=== PATIENT | female | born 1955 | race Caucasian/White ===

== ENCOUNTER 2020-11-26 02:32 | Day surgery (SDC) | payer MEDICARE, SELFPAY ==
[2020-11-11 13:17] VITALS: BMI 50.5
[2020-11-26 09:37] VITALS: BP 140/61; PULSE 94; RESP 17; TEMP 36.4; O2SAT 95; BMI 53.6
[2020-11-26] MEDS: LACTATED RINGERS 1,000 ML 150 ML IV CONT (09:43)
[2020-11-26 09:47] LABS: Glucose Point of Care 213 mg/dl (65-105)
--- NOTE | 2020-11-26 10:08 | P.PNAN_ITS ---
Anes - Initial Pre Proc Eval Procedure: Operation Date: 11/26/20 11:00 Proposed Procedures p Screening Colonoscopy - Lawrence Styles MD Date/Time: 11/26/20 10:08 Surgeon: Lawrence Styles MD Pre Op Diagnosis: neoplasm screening Patient Data Age: 65 Gender: F Height: 1.5 m Weight: 120.6 kg Last Vital Signs Temp 97.6 F 11/26/20 09:37 Pulse 94 11/26/20 09:37 Resp 17 11/26/20 09:37 BP 140/61 11/26/20 09:37 Pulse Ox 95 11/26/20 09:37 Allergies Allergy/AdvReac Type Severity Reaction Status Date / Time Penicillins Allergy Severe Rash Verified 11/26/20 09:36 Home Medications Medication Instructions Recorded Confirmed Type allopurinol 100 mg PO QAM 11/11/20 11/26/20 History atorvastatin 20 mg PO QAM 11/11/20 11/26/20 History dulaglutide [Trulicity] 0.75 mg SUBCUT WEEKLY 11/11/20 11/26/20 History insulin glargine [Basaglar KwikPen 40 unit SUBCUT HS 11/11/20 11/26/20 History U-100 Insulin] lisinopril 40 mg PO QAM 11/11/20 11/26/20 History metformin 1,000 mg PO QAM 11/11/20 11/26/20 History Laboratory Tests 11/26/20 09:45 POC Capillary Glucose 213 mg/dl H mg/dl (65-105) Patient hx anesthesia problems: none Family hx anesthesia problems: none Results Review: All pre-operative results and documents have been reviewed as part of the pre-operative evaluation. [facility] Past Medical History Medical History (Updated 11/26/20 @ 10:03 by August Nair MD) Depression Diabetes Social History Social History (System 03/14/19 @ 14:27 by Josie Rico) Smoking status: Never smoker Living arrangements: with family Spiritual care concerns: No Anes - Eval Final PreProcedure Day of Procedure 11/26/20 10:08 Patient weight: super morbidly obese Heart: regular rate and rhythm Lungs: clear to auscultation Airway: Mallampati scale class III Neurological: alert and oriented Last oral intake: >/= 8 hours ASA classification: III Emergent: no Anesthetic plan: proceed Anesthesia type and monitoring: general GIVS and standard monitoring Results Review: All pre-operative results and documents have been reviewed as part of the pre-operative evaluation. Informed Consent: The patient's anesthetic plan and its attendant risks and benefits were discussed with the patient/family/POA. Questions were solicited and answers provided to the satisfaction of the patient/family/POA.
--- NOTE | 2020-11-26 10:09 | PM.HPGS ---
History of Present Illness History of Present Illness Consent: Risks, benefits, and alternatives have been discussed and questions answered. Patient agrees to proceed with procedure. Chief complaint: neoplasm screening Narrative: Angelita Madera is a 65 year old female referred for colon cancer screening Review of Systems Review of Systems: All systems reviewed & are unremarkable except as noted in HPI and below PMFSH Past Medical History Medical History Depression Diabetes Social History Social History Smoking status: Never smoker Living arrangements: with family Spiritual care concerns: No Meds Home Medications and Allergies Home Medications Medication Instructions Recorded Confirmed Type allopurinol 100 mg PO QAM 11/11/20 11/26/20 History atorvastatin 20 mg PO QAM 11/11/20 11/26/20 History dulaglutide [Trulicity] 0.75 mg SUBCUT WEEKLY 11/11/20 11/26/20 History insulin glargine [Basaglar KwikPen 40 unit SUBCUT HS 11/11/20 11/26/20 History U-100 Insulin] lisinopril 40 mg PO QAM 11/11/20 11/26/20 History metformin 1,000 mg PO QAM 11/11/20 11/26/20 History Allergies Allergy/AdvReac Type Severity Reaction Status Date / Time Penicillins Allergy Severe Rash Verified 11/26/20 09:36 Vital Signs Vital Signs - 24 hr 11/26/20 09:37 Temperature 36.4 C Pulse Rate 94 Respiratory Rate 17 Blood Pressure 140/61 Pulse Oximetry 95 Exam Resp: Auscultation: clear to auscultation bilaterally Cardio: Rate: regular rate Rhythm: regular rhythm GI: GI Palp: Yes Soft to palpation and No Tenderness to palpation present (GI) Assessment and Plan Assessment and plan (1) Colon cancer screening: Code(s): Z12.11 - Encounter for screening for malignant neoplasm of colon Status: Acute Assessment and Plan: Colonoscopy with possible biopsy or polypectomy or cautery or injection of substances.
[2020-11-26 10:40] VITALS: BP 106/45; PULSE 94; RESP 22; O2SAT 94
[2020-11-26 10:50] VITALS: BP 109/68; PULSE 84; RESP 17; O2SAT 96
[2020-11-26 10:54] LABS: Glucose Point of Care 185 mg/dl (65-105)
[2020-11-26 11:00] VITALS: BP 111/60; PULSE 83; RESP 21; O2SAT 95
== END 2020-11-26 11:15 | disposition home or self-care (01) ==
PROVIDERS: PCP Family Medicine; Visit Provider Internal Medicine Gastroenterology
PROC: 0DJD8ZZ Inspection of Lower Intestinal Tract, Via Natural or Artificial Opening Endoscopic (ICD-10-PCS; CPT 45378; principal; 2020-11-26 11:00)
DX: Z12.11 Encounter for screening for malignant neoplasm of colon (principal); E11.9 Type 2 diabetes mellitus without complications; F32.9 Major depressive disorder, single episode, unspecified; Z79.4 Long term (current) use of insulin; Z79.84 Long term (current) use of oral hypoglycemic drugs; E66.01 Morbid (severe) obesity due to excess calories; Z68.43 Body mass index [BMI] 50.0-59.9, adult
CPT/HCPCS: G0121; 82948; J2704; J7120

== ENCOUNTER → 2021-02-01 13:28 | Outpatient (CLI) | payer MEDICARE, SELFPAY ==
--- NOTE | ~2021-02-01 | MM_ITS ---
EXAMINATION: MM screening [facility] BI w danelle HISTORY: Screening TECHNIQUE: Craniocaudal and mediolateral oblique 3-D tomosynthesis images were obtained and synthetic 2-D images were generated. CAD analysis was submitted and interpreted. COMPARISON: Comparison to multiple prior studies sequentially, with oldest reviewed study dated 06/2013. BREAST PARENCHYMAL COMPOSITION: Breast composed of scattered areas of fibroglandular density. FINDINGS: There is no evidence of suspicious mass, calcification, or architectural distortion to sugg est malignancy in either breast. There has been no suspicious interval change. IMPRESSION: 1. No mammographic evidence of malignancy. 2. Recommend routine screening mammography in one year. BI-RADS Category 1: Negative Reviewed, dictated and finalized at location A. TEMPERER
== END ==
PROVIDERS: PCP Family Medicine; Visit Provider Nurse Practitioner Family
DX: Z12.31 Encounter for screening mammogram for malignant neoplasm of breast (principal)
CPT/HCPCS: 77063; 77067

== ENCOUNTER 2021-12-08 17:15 | Emergency (ER) | payer MEDICARE, SELFPAY ==
[2021-12-08 17:23] VITALS: BP 121/90; PULSE 94; RESP 14; TEMP 36.1; O2SAT 98
[2021-12-08 17:36] LABS: Basophils Absolute Auto 0.2 K/mm3 (0.0-0.1); Basophils Percent Auto 1.2 % (0.2-1.2); Eosinophils Absolute Auto 0.2 K/mm3 (0-0.3); Eosinophils Percent Auto 1.4 % (0-4.4); Hemoglobin 13.5 g/dL (12.0-15.0); Immature Granulocyte Absolute 0.05 K/mm3 (0.00-0.031); Immature Granulocyte Percent A 0.4 % (0-0.5); Lymphocytes Absolute Auto 3.72 K/mm3 (0.9-3.2); Lymphocytes Percent Auto 28.5 % (18.3-44.2); Mean Corpuscular HGB Conc 32.1 g/dl (32-36); Mean Corpuscular Volume 90.1 fl (80-100); Mean Platelet Volume 11.8 fl (7.4-10.4); Monocytes Absolute Auto 1.3 K/mm3 (0.1-0.6); Monocytes Percent Auto 9.7 % (2.6-8.5); Neutrophils Absolute Auto 7.7 K/mm3 (1.3-6.7); Neutrophils Percent Auto 58.8 % (45.5-73.1); Platelet Count Result 290 k/mm3 (150-375); Red Blood Count 4.66 M/mm3 (4.2-5.4); Red Cell Distribution Width 13.3 % (11.5-14.5); White Blood Count 13.1 K/mm3 (4.5-10.0)
[2021-12-08 17:46] LABS: Alanine Aminotransferase 25 U/L (6-35); Albumin Level 4.3 g/dL (3.5-5.1); Alkaline Phosphatase 147 U/L (38-126); Anion Gap 6 mmol/L (8-16); Aspartate Amino Transferase 29 U/L (14-36); Bilirubin,Total 0.4 mg/dL (0.2-1.3); Blood Urea Nitrogen 19 mg/dL (7-17); Calcium 9.5 mg/dL (8.4-10.2); Carbon Dioxide 31 mmol/L (22-30); Chloride 96 mmol/L (98-107); Estimated Glomerular Filt Rate > 60; Glucose 209 mg/dL (65-110); Potassium 4.5 mmol/L (3.4-5.0); Sodium 133 mmol/L (137-145)
[2021-12-08 17:47] LABS: Prothrombin Time 12.3 Seconds (11.1-14.7)
[2021-12-08 19:11] VITALS: BP 138/64; PULSE 74; RESP 18; O2SAT 98
--- NOTE | 2021-12-08 20:12 | ED.FEMALEGU ---
HPI - Female Genitourinary General Chief complaint: Vaginal Bleeding Stated complaint: VAGINAL BLEEDING Time Seen by Provider: 12/08/21 19:08 History of Present Illness HPI Narrative: Patient is a 66-year-old female who presents ER with vaginal bleeding. Ongoing for the last 4 days. Goes through 2 pads an hour. Wakes up at night to change her pad. No syncope or dizziness or exertional shortness of breath. Denies fevers chills or sweats. No urinary frequency urgency or dysuria. Tried to schedule follow-up with her frickertron checker but there are no appointments until January 28. No history of malignancy. Related Data Home Medications Medication Instructions Recorded Confirmed allopurinol 100 mg tablet 100 mg PO QAM 11/11/20 11/26/20 atorvastatin 20 mg tablet 20 mg PO QAM 11/11/20 11/26/20 dulaglutide 0.75 mg/0.5 mL 0.75 mg subcut WEEKLY 11/11/20 11/26/20 subcutaneous pen injector (Trulicity) insulin glargine 100 unit/mL (3 40 unit subcut HS 11/11/20 11/26/20 mL) subcutaneous pen (Basaglar KwikPen U-100 Insulin) lisinopril 40 mg tablet 40 mg PO QAM 11/11/20 11/26/20 metformin 500 mg tablet 1,000 mg PO QAM 11/11/20 11/26/20 Allergies Allergy/AdvReac Type Severity Reaction Status Date / Time Penicillins Allergy Severe Rash Verified 12/08/21 19:10 Review of Systems Review of Systems: All systems reviewed & are unremarkable except as noted in HPI and below Constitutional: Constitutional: Denies chills and Denies fatigue ENT: Denies nasal congestion and Denies sore throat Cardiovascular: Cardiovascular: Denies chest pain and Denies radiating jaw, neck or arm pain Gastrointestinal: Gastrointestinal: Denies abdominal pain, Denies nausea and Denies vomiting Genitourinary: Genitourinary: Reports abnormal vaginal bleeding, Denies nocturia, Denies dysuria and Denies pelvic pain PMF Past Medical History Medical History (Updated 12/08/21 @ 20:17 by Anival Huntley MD) Depression Diabetes Surgical History Surgical History (Updated 12/08/21 @ 20:38 by Anival Huntley MD) No pertinent past surgical history Social History Social History Smoking status: Never smoker Spiritual care concerns: No Exam Narrative: GENERAL: Well-appearing, well-nourished, and in no acute distress. HEAD: Normocephalic, atraumatic. CHEST: Clear to auscultation. No respiratory distress. HEART: Regular rate and rhythm. Normal peripheral pulses. ABDOMEN: Soft, nontender, nondistended. : Normal external genitalia. Cervix closed with scant blood oozing. Cervix nonfriable. Small amount of old dark blood within the vaginal vault. EXTREMITIES: Normal range of motion. No edema. SKIN: Warm, dry, no rash. NEURO: Alert and oriented x3. PSYCH: Normal mood and affect. Course Course Emergency Course: Discussed with Dr. Boswell. She would like the patient to call office morning to schedule close follow-up. Additionally we will place an order for an outpatient ultrasound. Patient will be started on TXA for 5 days. Vital Signs Vital signs: Vital Signs Temperature 97.0 F L 12/08/21 17:23 Pulse Rate 94 12/08/21 17:23 Respiratory Rate 14 12/08/21 17:23 Blood Pressure 121/90 12/08/21 17:23 Pulse Oximetry 98 12/08/21 17:23 Oxygen Delivery Room Air 12/08/21 17:23 Temperature 97.0 F L 12/08/21 17:23 Pulse Rate 74 12/08/21 19:11 Respiratory Rate 18 12/08/21 19:11 Blood Pressure 138/64 12/08/21 19:11 Pulse Oximetry 98 12/08/21 19:11 Oxygen Delivery Room Air 12/08/21 17:23 MDM - Female Genitourinary Lab Data Result diagrams: 12/08/21 17:29 12/08/21 17:29 Labs: Lab Results 12/08/21 12/08/21 12/08/21 Range/Units 17:29 17:29 17:29 WBC 13.1 H (4.5-10.0) K/mm3 RBC 4.66 (4.2-5.4) M/mm3 Hgb 13.5 (12.0-15.0) g/dL Hct 42.0 (37.0-47.0) % MCV 90.1 (80-100) fl MCH 29.0
[2021-12-08 20:42] VITALS: BP 102/42; PULSE 72; RESP 18; O2SAT 97
== END 2021-12-08 20:45 | disposition home or self-care (01) ==
PROVIDERS: Emergency Medicine; Emergency Provider Emergency Medicine; PCP Family Medicine
DX: N95.0 Postmenopausal bleeding (principal); E11.9 Type 2 diabetes mellitus without complications; Z79.84 Long term (current) use of oral hypoglycemic drugs; Z79.4 Long term (current) use of insulin; Z79.85 Long-term (current) use of injectable non-insulin antidiabetic drugs
CPT/HCPCS: 36415; 80053; 85025; 85610; 85730; 86850; 86900; 86901; 99284

== ENCOUNTER 2021-12-13 14:48 | Outpatient (CLI) | payer MEDICARE, SELFPAY ==
--- NOTE | ~2021-12-13 | US_ITS ---
EXAMINATION: US pelvic complete w TV DATE: 12/13/2021 15:50 INDICATION: Postmenopausal bleeding. TECHNIQUE: Multiple transabdominal and transvaginal sonographic images of the pelvis were obtained. COMPARISON: Ultrasound 11/11/2010 FINDINGS: TRANSABDOMINAL ULTRASOUND: The uterus measures 8.5 x 4.2 x 5.1 cm. There is no free fluid in the pelvis. TRANSVAGINAL ULTRASOUND: The endometrial complex measures 9 mm in thickness. There are nabothian cysts in the cervix. There is a 2.8 cm intramural fibroid. The ovaries are not visualized. IMPRESSION: 1. Thickened endometrial complex. The differential diagnosis includes endometrial hyperplasia, polyp, and carcinoma. Biopsy is recommended. 2. Uterine fibroid. Reviewed, dictated and finalized at location A. NISTRATIVE SALES ASSISTANT IMPRESSION: 1. Thickened endometrial complex. The differential diagnosis includes endometri al hyperplasia, polyp, and carcinoma. Biopsy is recommended. 2. Uterine fibroid.
== END 2021-12-13 14:49 | disposition home or self-care (01) ==
PROVIDERS: PCP Family Medicine; Visit Provider Family Medicine
DX: N95.0 Postmenopausal bleeding (principal); D25.9 Leiomyoma of uterus, unspecified
CPT/HCPCS: 76830; 76856

== ENCOUNTER 2022-01-17 00:48 | Day surgery (SDC) | payer MEDICARE, SELFPAY ==
--- NOTE | 2022-01-05 14:48 | PC.NURSE ---
Report to the Outpatient Waiting Room, entrance under the green pavilion located off [facility], at time __1215 on date __01/17/22 . Planned Procedure Time: _1415 . Time changes happen often and if your time is changed the preop area will call you the afternoon before. - You and your visitor will be asked to self-screen and do not enter if you have any COVID symptoms. - Only one visitor is requested with a max of two and NO children visitors are allowed at this time. - The patient visitor may be requested to leave or wait in car when not with patient due to distancing restrictions. - A mask is optional within the hospital. Patients may have clear liquids (water, carbonated beverages, clear teas, apple juice) until 3 hours prior to surgery with a maximum of 20 ounces. - No food from midnight until time of surgery - Infants may have breast milk until 4 hours before surgery, formula 6 hours prior to surgery. - Children will be allowed to drink immediately following surgery. If applicable, please bring a bottle or sippy cup to assist with drinking. Juice, water, soda, and popsicles are readily available. For infants on formula, please bring formula the day of surgery. Pacifiers are allowed. Take the following medications with a SIP of water the morning of surgery: SERTRALINE Medications to discontinue per physician ___VITAMIN D3 3 DAYS PRE OP Date to take last dose____01/13/22 Please no make-up, nail paraguayan, hairspray, perfume, deodorant, or body powder the day of surgery. No jewelry (including any body piercings) or valuables the day of surgery, leave them at home. Please take a shower or bath the night before, or the morning of, surgery with an antibacterial soap. Wear comfortable, loose fitting clothing. Children are encouraged to wear pajamas. - Jewelry must be removed prior to entering the operating room. Rings and piercings that are not removed may be cut off. - The hospital will not accept responsibility for valuables. - Please leave all valuables, including medications, at home the day of surgery. If you are going home after surgery, a licensed chair car driver must drive you home. - NO public transportation without another adult if you receive anesthesia. - We recommend that an adult stay with you for 24 hours following discharge. - We also recommend that you do not drive, make important decision, drink alcoholic beverages, or take any drugs that were not prescribed by your health care provider for at least 24 hours after your discharge time. For Pediatric surgeries, we recommend two adults accompany the child home. Follow any additional instructions given to you from your surgeon. If you or anyone in your household have experienced Covid symptoms in the past week, please notify your surgeon or the nurse liaison at the phone number below for possible testing. Telephone instructions given to _PATIENT and asked if any additional questions and then verbalized understanding. Patient advised to call surgeon office or pre surgery nurse liaison [phone] if any additional questions.
[2022-01-05 14:53] VITALS: BMI 50.9
--- NOTE | 2022-01-17 07:26 | WPDHPUPDATE1 ---
History and Physical Update Update Date/Time: 01/17/22 07:26 History and Physical has been reviewed, including an updated exam of the patient. There are NO changes in the patient's condition. Risks, benefits, and alternatives have been discussed and questions answered. Patient agrees to proceed with procedure.
--- NOTE | 2022-01-17 07:26 | PM.HPGS ---
History of Present Illness History of Present Illness Consent: Risks, benefits, and alternatives have been discussed and questions answered. Patient agrees to proceed with procedure. Chief complaint: post menopausal bleeding Narrative: Angelita Madera is a 66 year old female with postmenopausal bleeding. The patient had not been seen since 2016 when she was scheduled for a D&C hysteroscopy for postmenopausal bleeding. She canceled that procedure. Patient states when she returned on December 14, 2021 she had no bleeding from the time of her last visit until June of 2021. She states she had a very heavy 1 day bleeding episode in June of 2021. She then began bleeding on 12/08 very heavy and went to the emergency room. It was recommended to proceed with D&C hysteroscopy. Risks of infection, bleeding, perforation, and possible pathology are reviewed. Patient voices understanding and agrees to proceed. Review of Systems Review of Systems: not repeated day of surgery; patient states no changes in status PMFSH Past Medical History Medical History (Updated 01/17/22 @ 07:30 by Chel Boswell MD) Anxiety Depression Diabetes Elevated cholesterol Gout HTN (hypertension) (normal spontaneous vaginal delivery) x2 Surgical History Surgical History (Updated 01/17/22 @ 07:30 by Chel Boswell MD) H/O breast biopsy benign on right Family History Family History (Updated 01/17/22 @ 07:31 by Chel Boswell MD) Mother Ovarian cancer Father Esophageal cancer Other Diabetes mellitus Hypertension Social History Social History Smoking status: Never smoker Living arrangements: with family Spiritual care concerns: No Meds Home Medications and Allergies Home Medications Medication Instructions Recorded Confirmed Type allopurinol 100 mg tablet 100 mg PO QAM 11/11/20 01/17/22 History atorvastatin 20 mg tablet 20 mg PO QAM 11/11/20 01/17/22 History dulaglutide 0.75 mg/0.5 mL 0.75 mg subcut WEEKLY 11/11/20 01/17/22 History subcutaneous pen injector (Trulicity) insulin glargine 100 unit/mL (3 40 unit subcut HS 11/11/20 01/17/22 History mL) subcutaneous pen (Basaglar Anna MariePen U-100 Insulin) lisinopril 40 mg tablet 40 mg PO QAM 11/11/20 01/17/22 History metformin 500 mg tablet 1,000 mg PO QAM 11/11/20 01/17/22 History cholecalciferol (vitamin D3) 1,250 1,250 mcg PO WEEKLY 01/05/22 01/17/22 History mcg (50,000 unit) tablet glipizide 10 mg tablet 10 mg PO BID 01/05/22 01/17/22 History sertraline 25 mg tablet 25 mg PO QAM 01/05/22 01/17/22 History Allergies Allergy/AdvReac Type Severity Reaction Status Date / Time Penicillins Allergy Severe Rash Verified 01/17/22 07:03 empagliflozin Allergy Rash Verified 01/17/22 07:03 [From Jardiance] Exam Narrative: BMI 40 Const: General: healthy appearing and alert Orientation/consciousness: patient oriented x3 Resp: Effort & Inspection: normal respiratory effort GI: GI Palp: Yes Soft to palpation, No Tenderness to palpation present (GI) and No Palpable mass present : External Female Exam: normal external appearance Speculum Exam - Vagina: normal appearance of the vagina and normal vaginal discharge Speculum Exam - Cervix: normal appearance of the cervix Bimanual exam- vagina & uterus: uterine size normal and consistency normal Bimanual Exam- Adnexa, other: normal adnexae and No adnexal tenderness Neuro: General: patient oriented x3 Assessment and Plan Assessment and plan (1) Post-menopausal bleeding: Code(s): N95.0 - Postmenopausal bleeding Status: Inactive Assessment and Plan: plan to proceed with D&C hysteroscopy
[2022-01-17 07:40] LABS: Glucose Point of Care 260 mg/dl (65-105)
[2022-01-17 07:44] VITALS: BP 126/55; PULSE 73; RESP 20; TEMP 36.4; O2SAT 99
[2022-01-17] MEDS: ACETAMINOPHEN 500 MG TABLET 1000 MG PO (07:48)
[2022-01-17] MEDS: LACTATED RINGERS 1,000 ML 30 ML IV CONT (08:06)
--- NOTE | 2022-01-17 08:10 | WPDANESEPPF ---
Anes - Initial Pre Proc Eval Procedure: Operation Date: 01/17/22 09:00 Proposed Procedures p Hysteroscopy, Dilation and Curettage - Chel Boswell MD Date/Time: 01/17/22 08:10 Surgeon: Chel Boswell MD Pre Op Diagnosis: post menopausal bleeding Patient Data Age: 66 Gender: F Height: 1.5 m Weight: 114.5 kg Last Vital Signs Temp 36.4 C 01/17/22 07:44 Pulse 73 01/17/22 07:44 Resp 20 01/17/22 07:44 BP 126/55 L 01/17/22 07:44 Pulse Ox 99 01/17/22 07:44 O2 Del Method Room Air 01/17/22 07:44 Allergies Allergy/AdvReac Type Severity Reaction Status Date / Time Penicillins Allergy Severe Rash Verified 01/17/22 07:03 empagliflozin Allergy Rash Verified 01/17/22 07:03 [From Jardiance] Home Medications Medication Instructions Recorded Confirmed Type allopurinol 100 mg tablet 100 mg PO QAM 11/11/20 01/17/22 History atorvastatin 20 mg tablet 20 mg PO QAM 11/11/20 01/17/22 History dulaglutide 0.75 mg/0.5 mL 0.75 mg subcut WEEKLY 11/11/20 01/17/22 History subcutaneous pen injector (Trulicity) insulin glargine 100 unit/mL (3 40 unit subcut HS 11/11/20 01/17/22 History mL) subcutaneous pen (Basaglar KwikPen U-100 Insulin) lisinopril 40 mg tablet 40 mg PO QAM 11/11/20 01/17/22 History metformin 500 mg tablet 1,000 mg PO QAM 11/11/20 01/17/22 History cholecalciferol (vitamin D3) 1,250 1,250 mcg PO WEEKLY 01/05/22 01/17/22 History mcg (50,000 unit) tablet glipizide 10 mg tablet 10 mg PO BID 01/05/22 01/17/22 History sertraline 25 mg tablet 25 mg PO QAM 01/05/22 01/17/22 History Laboratory Tests 01/17/22 07:38 POC Capillary Glucose 260 mg/dl H mg/dl (65-105) Patient hx anesthesia problems: none Family hx anesthesia problems: none Results Review: All pre-operative results and documents have been reviewed as part of the pre-operative evaluation. [facility] Past Medical History Medical History (Updated 01/17/22 @ 08:14 by Mukul Bell MD) Anxiety Depression Diabetes Elevated cholesterol Gout HTN (hypertension) Morbid obesity with BMI of 50.0-59.9, adult (normal spontaneous vaginal delivery) x2 Surgical History Surgical History (Updated 01/17/22 @ 07:30 by Chel Boswell MD) H/O breast biopsy benign on right Family History Family History (Updated 01/17/22 @ 07:31 by Chel Boswell MD) Mother Ovarian cancer Father Esophageal cancer Other Diabetes mellitus Hypertension Social History Social History Smoking status: Never smoker Living arrangements: with family Spiritual care concerns: No Anes - Eval Final PreProcedure Day of Procedure 01/17/22 08:10 Patient weight: super morbidly obese Heart: regular rate and rhythm Lungs: clear to auscultation Airway: Mallampati scale class III Neurological: alert and oriented Last oral intake: >/= 8 hours ASA classification: III Emergent: no Anesthetic plan: proceed Anesthesia type and monitoring: general GIVS and LMA and standard monitoring Results Review: All pre-operative results and documents have been reviewed as part of the pre-operative evaluation. Informed Consent: The patient's anesthetic plan and its attendant risks and benefits were discussed with the patient/family/POA. Questions were solicited and answers provided to the satisfaction of the patient/family/POA.
[2022-01-17] MEDS: LIDOCAINE HCL 1% PF 30 ML VIAL 10 ML INFILTRATE (09:23)
--- NOTE | 2022-01-17 09:37 | P.OP_ITS ---
Procedure Note - Detailed Date of Procedure 01/17/22 Pre-op Diagnosis post menopausal bleeding Post-op Diagnosis Same Procedure Performed D&C hysteroscopy with resection uterine masses Surgeon Chel Boswell MD Anesthesia Local Findings uterus sounds to 10cm; there are 4 endometrial masses; 3 appear to be polyps and 1 appears calcified and irregular ; background endometrium appears atrophic Description of Procedure The patient is taken to the operating room and placed under anesthesia in the dorsal lithotomy position. She was prepped and draped in the usual sterile fashion. [place] speculum was placed in the vagina and the cervix grasped on the anterior lip with a tenaculum. The cervix is injected in each quadrant with 1% lidocaine. The uterus is sounded to 10cm. The cervix is serially dilated to a 6 Hegar. The diagnostic hysteroscope was placed with the above- stated findings. The resection device is placed and under direct visualization the 4 masses are excised. The hysteroscope was then removed and the sharp curette used to curette the endometrium until a good uterine cry was noted in all areas minimal material was obtained consistent with the atrophic appearance. The instruments are removed and the patient awakened from anesthesia. She was taken to recovery room in stable condition. Sponge, needle, and instrument counts are correct per the OR staff. Estimated Blood Loss 5 Drains No Packing No Pathology Yes ( Endometrial shavings and curettings) Complications No immediate complications Condition Stable Disposition PACU
[2022-01-17 09:40] VITALS: BP 88/59; PULSE 73; RESP 20; O2SAT 96
[2022-01-17 09:58] LABS: Glucose Point of Care 205 mg/dl (65-105)
[2022-01-17 10:10] VITALS: BP 114/70; PULSE 72; RESP 20; O2SAT 98
[2022-01-17 10:40] VITALS: BP 131/82; PULSE 65; RESP 18; O2SAT 96
== END 2022-01-17 10:53 | disposition home or self-care (01) ==
PROVIDERS: PCP Family Medicine; Visit Provider Obstetrics & Gynecology Gynecology
PROC: 0U5B8ZZ Destruction of Endometrium, Via Natural or Artificial Opening Endoscopic (ICD-10-PCS; CPT 58563; principal; 2022-01-17 09:00)
DX: N95.0 Postmenopausal bleeding (principal); N84.0 Polyp of corpus uteri; I10 Essential (primary) hypertension; E11.9 Type 2 diabetes mellitus without complications; M10.9 Gout, unspecified; F41.9 Anxiety disorder, unspecified; F32.A Depression, unspecified; E66.01 Morbid (severe) obesity due to excess calories; Z68.43 Body mass index [BMI] 50.0-59.9, adult; Z79.84 Long term (current) use of oral hypoglycemic drugs; Z79.899 Other long term (current) drug therapy
CPT/HCPCS: 58558; 82948; 88305; A9270; J2704; J3010; J7030; J7120

== ENCOUNTER → 2022-06-17 11:53 | Outpatient (CLI) | payer MEDICARE, SELFPAY ==
--- NOTE | ~2022-06-17 | MM_ITS ---
EXAMINATION: MM screening [facility] BI w danelle HISTORY: Screening mammogram TECHNIQUE: Craniocaudal and mediolateral oblique 3-D tomosynthesis images were obtained and synthetic 2-D images were generated. CAD analysis was submitted and interpreted. COMPARISON: 02/01/2021, 07/24/2014, 03/13/2013 BREAST PARENCHYMAL COMPOSITION: The breasts are almost entirely fatty. FINDINGS: No suspicious mass, calcification, or architectural distortion are identified in either effie ast to suggest malignancy. There has been no suspicious interval change. IMPRESSION: 1. No mammographic evidence of malignancy. 2. Recommend routine screening mammography in one year. BI-RADS Category 1: Negative Reviewed, dictated and finalized at location A.
== END ==
PROVIDERS: PCP Obstetrics & Gynecology Gynecology; Visit Provider Obstetrics & Gynecology Gynecology
DX: Z12.31 Encounter for screening mammogram for malignant neoplasm of breast (principal)
CPT/HCPCS: 77063; 77067

== ENCOUNTER → 2022-06-17 11:56 | Outpatient (CLI) | payer MEDICARE, SELFPAY ==
--- NOTE | ~2022-06-17 | XR_ITS ---
XR knee LT min 4V 06/17/2022 13:03 Indication: Left knee pain Procedure: 4 views left knee Comparison: No prior studies for comparison. Findings: Severe tricompartment osteoarthritis of the left knee. Significant joint effusion. No acute fracture or traumatic malalignment. Impression: 1: Severe osteoarthritis of the left knee. Reviewed, dictated and finalized at location B. Impression: 1: Severe osteoarthritis of the left knee.
== END ==
PROVIDERS: PCP Nurse Practitioner Adult Health; Visit Provider Nurse Practitioner Adult Health
DX: M17.12 Unilateral primary osteoarthritis, left knee (principal)
CPT/HCPCS: 73564

== ENCOUNTER 2022-08-10 07:05 | Inpatient (IN) | payer MEDICARE, SELFPAY ==
[2022-08-10] VITALS (34 sets, daily range): BP systolic 92–113; BP diastolic 38–66; PULSE 83–154; RESP 12–30; TEMP 36.3–36.7; O2SAT 94–99; BMI 43.7
--- NOTE | 2022-08-10 | ECHO_ITS ---
Patient Info Name: Angelita Madera Age: 67 years : 1955 Gender: Female Ht: 59 in Wt: 225 lbs BSA: 2.13 m2 HR: 91 bpm BP: 113 / 51 mmHg Heart Rhythm: Sinus Rhythm Technical Quality: Fair Exam Date: 08/10/2022 2:08 PM Exam Location: [facility] Patient Status: Outpatient Admit Date: 08/10/2022 Staff Ordering Physician: Anupam Victor MD (odell/rich) Employee Relations Consultant: Maria E Kerr RDCS Attending Provider: Dominic Murdock MD Referring Physician: Valente LYLES; Exam Type: CA echo doppler color flow Study Info Indications - SVT Complete two-dimensional, color flow and Doppler transthoracic echocardiogram is performed. Summary 1. Complete two-dimensional, color flow and Doppler transthoracic echocardiogram is performed. 2. Left ventricular chamber dimension is normal. 3. There is severely increased left ventricular wall thickness. 4. Left ventricular systolic function is hyperdynamic, estimated at >70%, with near cavity obliteration. Left ventricular outflow tract obstruction with peak gradient of 22mmHg.. 5. The left ventricular diastolic function is grade I diastolic dysfunction. 6. Right ventricular systolic function is normal. 7. Left atrial chamber dimension is severely enlarged. 8. There is moderate aortic valve stenosis. 9. There is mild aortic valve regurgitation. 10. The mitral valve annulus is severely calcified. 11. The mitral valve has thickened leaflets and calcified leaflets. 12. There is moderate mitral valve regurgitation. 13. There is mild tricuspid valve regurgitation. Left Ventricle Left ventricular chamber dimension is normal. Left ventricular systolic function is hyperdynamic, estimated at >70%, with near cavity obliteration. Left ventricular outflow tract obstruction with peak gradient of 22mmHg.. There is severely increased left ventricular wall thickness. The left ventricular diastolic function is grade I diastolic dysfunction. Right Ventricle Right ventricular chamber dimension is normal. Right ventricular systolic function is normal. Left Atria Left atrial chamber dimension is severely enlarged. Right Atria Right atrial chamber dimension is normal. Atrial Septum Intact interatrial septum visualized by color flow imaging. Aortic Valve The aortic valve is not well visualized. There is moderate aortic valve stenosis. There is mild aortic valve regurgitation. There is moderate aortic valve calcification. Pulmonic Valve The pulmonic valve is not well visualized. Mitral Valve The mitral valve has thickened leaflets and calcified leaflets. There is moderate mitral valve regurgitation. The mitral valve annulus is severely calcified. Tricuspid Valve There is mild tricuspid valve regurgitation. Pericardium/Pleural There is trivial pericardial effusion. Inferior Vena Cava Normal inferior vena cava with >50% collapse upon inspiration consistent with normal right atrial pressure, 3 mmHg. Aorta The aortic root size at the sinus of Valsalva is normal. Left Ventricular Outflow Tract Name Value Normal LVOT 2D LVOT Diameter 1.7 cm LVOT Doppler LVOT Peak Gradient 22 mmHg LVOT Mean Gradient 14 mmHg
--- NOTE | ~2022-08-10 | US_ITS ---
US abdomen limited DATE: 08/10/2022 18:34 INDICATION: Elevated liver function tests TECHNIQUE: Real-time imaging and Doppler analysis COMPARISON: None FINDINGS: There is hepatic steatosis. No hepatic space-occupying mass lesion. Normal hepatopedal port al venous flow direction. The gallbladder is distended. No gallbladder wall thickening or pericholecystic fluid is evident. Neg ative sonographic Scott's sign. The common bile duct measures up to 12 mm, which is greater than normal. The pancreatic duct measures up to 3.7 mm, mildly dilated. IMPRESSION: Mild duct and pancreatic duct dilatation. Consider MRCP Reviewed, dictated and finalized at [facility]. Reviewed, dictated and finalized at [facility].
--- NOTE | ~2022-08-10 | XR_ITS ---
EXAMINATION: XR chest 1V portable DATE: 08/10/2022 07:36 INDICATION: Weakness. Low blood pressure. TECHNIQUE: A single frontal view of the chest was obtained. COMPARISON: None. FINDINGS: The chest demonstrates clear lungs without pneumonia, pleural effusion, or pneumothorax. Th e heart size is normal. IMPRESSION: 1. No acute cardiopulmonary disease. Reviewed, dictated and finalized at location [facility].
--- NOTE | ~2022-08-10 | MR_ITS ---
EXAMINATION: MR MRCP wo/w con/w 3D wo ind DATE: 08/11/2022 15:20 INDICATION: Bile duct and pancreatic duct dilatation. Abnormal liver function tests. TECHNIQUE: Magnetic resonance imaging (MRI) of the abdomen was performed without and with 19 mL Multi Harper intravenous contrast. Sequences included coronal T2-weighted FS FSE, coronal T2-weighted FSE, a xial T1-weighted LAVA, coronal FS FIESTA, axial dual-echo T1-weighted SPGR, coronal lava-FLEX, sagitt al T2-weighted FSE, axial T2-weighted FSE, and axial DWI. Thick-slab T2-weighted FSE images were obta ined for magnetic resonance cholangiopancreatography (MRCP). Maximum intensity projection 3-D reconst ructions of the volumetric data were created by the technologist. Postcontrast sequences included cor onal LAVA-flex and time course of axial T1-weighted LAVA. COMPARISON: Abdomen ultrasound 08/10/2022 FINDINGS: ABDOMEN MRI: There is mild intrahepatic biliary duct dilatation. The gallbladder is distended. The co mmon duct and pancreatic duct are dilated. The spleen, adrenal glands, and kidneys are normal. There are no dilated loops of bowel. There is a 3.4 cm cyst in right adnexa. There are no pathologically en larged lymph nodes. There is no free intraperitoneal fluid. ABDOMEN MRCP: The common duct is dilated to 11 mm. The pancreatic duct is dilated to 5 mm. IMPRESSION: 1. Mild intrahepatic and extrahepatic biliary duct dilatation with gallbladder distention. Mildly dil ated pancreatic duct. No obstructing stone or mass identified. 2. 3.4 cm cyst in right adnexa, likely benign. Pelvis ultrasound is recommended in one year. Reviewed, dictated and finalized at [facility]. IMPRESSION: 1. Mild intrahepatic and extrahepatic biliary duct dilatation with gallbladder distention. Mildly dilated pancreatic duct. No obstructing stone or mass identi fied. 2. 3.4 cm cyst in right adnexa, likely benign. Pelvis ultrasound is recommended in one year.
--- NOTE | 2022-08-10 07:16 | ECG_ITS ---
Measurements Intervals [place] Rate: 149 P: MS: 0 QRS: 21 QRSD: 92 T: 71 QT: 292 QTc: 460 Interpretive Statements SUPRAVENTRICULAR TACHYCARDIA LEFT VENTRICULAR HYPERTROPHY WITH ST-T CHANGE ABNORMAL ECG NO PREVIOUS ECG AVAILABLE FOR COMPARISON Electronically Signed On 08-10-2022 7:24:06 CDT by See Mario D.O.
--- NOTE | 2022-08-10 07:25 | ED.GENADULT ---
HPI - General Adult General Chief complaint: Weakness Stated complaint: weakness Time Seen by Provider: 08/10/22 07:07 History of Present Illness HPI narrative: 67-year-old female with history of diabetes and prior hysterectomy presented to the emergency department for evaluation of suspected UTI, generalized weakness, anxiety and rapid heart rate. Patient states she woke up this morning and she felt that her heart was racing. Patient has no prior history of NC. Patient states that she does have some associated chest pain with this. Patient reports that her blood sugars are poorly controlled and that her primary care physician has been changing of her medications. Related Data Home Medications Medication Instructions Recorded Confirmed allopurinol 100 mg tablet 100 mg PO QAM 11/11/20 08/10/22 atorvastatin 20 mg tablet 20 mg PO QAM 11/11/20 08/10/22 dulaglutide 0.75 mg/0.5 mL 0.75 mg subcut WEEKLY 11/11/20 08/10/22 subcutaneous pen injector (Trulicity) lisinopril 40 mg tablet 40 mg PO QAM 11/11/20 08/10/22 metformin 500 mg tablet 1,000 mg PO QAM 11/11/20 08/10/22 cholecalciferol (vitamin D3) 1,250 1,250 mcg PO WEEKLY 01/05/22 08/10/22 mcg (50,000 unit) tablet sertraline 25 mg tablet 25 mg PO QAM 01/05/22 08/10/22 dapagliflozin propanediol 5 mg 5 mg PO DAILY 08/10/22 08/10/22 tablet (Farxiga) Allergies Allergy/AdvReac Type Severity Reaction Status Date / Time Penicillins Allergy Severe Rash Verified 08/10/22 11:26 empagliflozin Allergy Rash Verified 08/10/22 11:26 [From Jardiance] Review of Systems Review of Systems: All systems reviewed & are unremarkable except as noted in HPI and below [facility] Past Medical History Medical History (Updated 08/10/22 @ 15:40 by Gladys Farfan PA-C) Anxiety Aortic stenosis Arthritis Depression Dyslipidemia Gout Hypertension Left ventricular outflow obstruction Severe LVH with an EF greater than 75%, near cavity obliteration, and LV out for tract obstruction on echo in June 2014. Type 2 diabetes mellitus Surgical History Surgical History (Updated 08/10/22 @ 15:34 by Gladys G Gerling, PA-C) History of benign breast biopsy (08/24/00) Right. History of hysterectomy for cancer (02/2022) History of tubal ligation Family History Family History Mother Ovarian cancer Father Esophageal cancer Sibling Diabetes mellitus Grandparent Diabetes mellitus Social History Social History (Updated 08/10/22 @ 15:36 by Gladys Farfan PA-C) Social History: Surrogate medical decision maker: Morteza Madera, spouse. Code status: Full code. Smoking status: Never smoker Alcohol intake: never Substance use: never Lack of Transportation: No Lack of Food: Never True Current Housing: I Have Housing Concerned About Future Housing: No Difficulty Paying Gas/Electric Bills: No Difficulty Paying for Meds: No Currently Unemployed: No Education: Decline to Answer Difficulty w/ Childcare or Family Care: No Living arrangements: with family Additional living arrangements comments: Lives with spouse in [place]. Spiritual care concerns: No Exam Narrative: APPEARANCE: Well appearing, no pain, no distress, well-nourished. HEAD: normocephalic, atraumatic. EYES: PERRLA/EOMI, conjunctivae clear. NOSE: Normal no drainage NECK: Supple. No adenopathy, no masses. RESPIRATORY: Airway patent, respirations nonlabored. Clear to auscultation bilaterally, no rales, rhonchi, wheezing. CARDIOVASCULAR: Rapid heart rate and 150s ABDOMINAL: Soft, suprapubic tenderness to palpation MUSCULOSKELETAL: Moves all extremities. Strength/ROM intact, No edema, No calf tenderness. NEURO: Alert. Cranial nerves II through XII intact. SKIN: Warm, dry. Normal Color Course Course Emergency Course: 67-year-old female presented to the emergency department for evaluation of rapid heart rate. Upon ar
[2022-08-10 07:28] LABS: Glucose Point of Care 439 mg/dl (65-105)
[2022-08-10] MEDS: SODIUM CHLORIDE 0.9% IV 1,000 ML 999 ML IV CONT ×2 (07:34)
[2022-08-10] MEDS: METOPROLOL TARTRATE INJ 5 MG/5 ML VIAL IV PUSH (07:34)
[2022-08-10 07:37] LABS: Basophils Absolute Auto 0.1 K/mm3 (0.0-0.1); Basophils Percent Auto 0.6 % (0.2-1.2); Eosinophils Absolute Auto 0.2 K/mm3 (0-0.3); Eosinophils Percent Auto 1.2 % (0-4.4); Hematocrit 39.5 % (37.0-47.0); Hemoglobin 12.5 g/dL (12.0-15.0); Immature Granulocyte Absolute 0.07 K/mm3 (0.00-0.031); Immature Granulocyte Percent A 0.5 % (0-0.5); Immature Platelet Fraction Pct 16.3 % (0.9-11.2); Lymphocytes Absolute Auto 1.75 K/mm3 (0.9-3.2); Lymphocytes Percent Auto 12.8 % (18.3-44.2); Mean Corpuscular HGB Conc 31.6 g/dl (32-36); Mean Corpuscular Hemoglobin 27.1 pg (26-34); Mean Corpuscular Volume 85.5 fl (80-100); Mean Platelet Volume 13.7 fl (7.4-10.4); Monocytes Absolute Auto 1.6 K/mm3 (0.1-0.6); Monocytes Percent Auto 11.9 % (2.6-8.5); Platelet Count Result 265 k/mm3 (150-375); Red Blood Count 4.62 M/mm3 (4.2-5.4); Red Cell Distribution Width 14.8 % (11.5-14.5); White Blood Count 13.7 K/mm3 (4.5-10.0)
--- NOTE | 2022-08-10 07:38 | ECG_ITS ---
Measurements Intervals [place] Rate: 87 P: 58 ME: 185 QRS: 30 QRSD: 82 T: -9 QT: 367 QTc: 443 Interpretive Statements SINUS RHYTHM BORDERLINE ST-T WAVE ABNORMALITY- INFERIOR LEADS BORDERLINE ECG COMPARED TO ECG 08/10/2022 07:21:40 [address]M NOW PRESENT ST-T WAVE ABNORMALITY NOW PRESENT Electronically Signed On 08-10-2022 8:13:57 CDT by See Mario D.O.
[2022-08-10 07:41] LABS: Alanine Aminotransferase 77 U/L (6-35); Albumin Level 3.9 g/dL (3.5-5.1); Alkaline Phosphatase 551 U/L (38-126); Anion Gap 10 mmol/L (8-16); Aspartate Amino Transferase 42 U/L (14-36); Bilirubin,Total 1.4 mg/dL (0.2-1.3); Blood Urea Nitrogen 16 mg/dL (7-17); Calcium 9.3 mg/dL (8.4-10.2); Carbon Dioxide 24 mmol/L (22-30); Chloride 95 mmol/L (98-107); Estimated Glomerular Filt Rate > 60; Glucose 458 mg/dL (65-110); Potassium 4.5 mmol/L (3.4-5.0); Sodium 129 mmol/L (137-145)
[2022-08-10 07:54] LABS: Troponin I 0.032 ng/mL (0.000-0.034)
[2022-08-10] MEDS: ASPIRIN 81 MG CHEWABLE TABLET 324 MG PO (07:59)
[2022-08-10 08:02] LABS: Beta-Hydroxybutyrate/Acetoacetate 1.85 mmol/L (0.02-0.27)
[2022-08-10 08:09] LABS: Appearance Urine Clear (Clear); Bilirubin Urine 1+ (Negative); Blood Urine Negative (Negative); Glucose Urine UA 3+ mg/dL (Negative); Ketones Urine 2+ mg/dL (Negative); Leukocyte Esterase Ur Trace LEU/UL (Negative); Nitrate Urine Positive (Negative); Protein Urine Negative (Negative)
[2022-08-10 08:12] LABS: Color Urine Dark Yellow (Yellow)
[2022-08-10 08:19] LABS: Bacteria Urine Rare /hpf; Need Manual Microscopic Reviewed; Non Pathogenic Casts 0-2; RBC Urine 0-2 /hpf (0-2); Squamous Epithelial Cell Urine Few /hpf (Few); WBC Urine 21-50 /hpf
[2022-08-10 08:22] LABS: Add Urine Microscopic? YES
[2022-08-10 08:27] LABS: Glucose Point of Care 384 mg/dl (65-105)
[2022-08-10] MEDS: levoFLOXacin 750 MG/D5W 150 ML 750 MG/150 ML BAG 100 MG IVPB (10:12)
[2022-08-10] MEDS: INSULIN HUMAN REGULAR (*BKC) 100 UNITS/ML 7 UNITS IV PUSH (10:13)
--- NOTE | 2022-08-10 11:15 | ADMGEN ---
This patient, Angelita Madera, was admitted to IMU Room 214-01 @ 1035. Patient/family oriented to hospital policies and general routines including ID bracelet, bed and alarms, visiting hours, pain management, procedures, bathroom and other care routines, personal items, smoking policy, room service/diet, and visiting hours. Information on how to activate the Rapid Response Team has been discussed. Patient/Family are encouraged to report perceived risks to care and to ask questions if they do not understand what they are told or what they should do.
[2022-08-10 11:30] LABS: Glucose Point of Care 382 mg/dl (65-105)
--- NOTE | 2022-08-10 11:46 | PM.CNCAR ---
Assessment and Plan Assessment and plan (1) SVT (supraventricular tachycardia): Code(s): I47.1 - Supraventricular tachycardia Status: Acute Assessment and Plan: Will start oral Metoprolol succinate. Obtain echocardiogram. (2) HTN (hypertension): Code(s): I10 - Essential (primary) hypertension Status: Acute Assessment and Plan: Stable, continue home Lisinopril (3) Diabetes: Code(s): E11.9 - Type 2 diabetes mellitus without complications Status: Acute Assessment and Plan: Uncontrolled. Management as per Hospitalist. Has an upcoming outpatient appointment with an Truck Mechanic. History of Present Illness History of Present Illness Consult date/time: 08/10/22 11:46 Requesting physician: Darren Santana MD Consult reason: Other (SVT) Reason For Visit: svt,hyperglycemia,uti,chest pain Narrative: We are consulted for SVT. This is a 67-year-old female with diabetes, hypertension, history of UTIs who presented with generalized weakness and fast heart rate. Patient states her rapid heart rate began about an hour prior to presentation to [facility]. Upon arrival to the ED, patient noted to be in SVT with heart rates in the 150s. Patient given IVF and 5mg IV Lopressor. Patient then converted to sinus rhythm and has remained in sinus rhythm. Patient denies any prior cardiac history but states she has occasional palpitations. Review of Systems Review of Systems: All systems reviewed & are unremarkable except as noted in HPI and below (HPI) [facility] Past Medical History Medical History (Updated 08/10/22 @ 11:51 by Anupam Victor MD) Anxiety Depression Diabetes Elevated cholesterol Gout HTN (hypertension) Morbid obesity with BMI of 50.0-59.9, adult (normal spontaneous vaginal delivery) x2 Surgical History Surgical History H/O breast biopsy benign on right Family History Family History Mother Ovarian cancer Father Esophageal cancer Sibling Diabetes mellitus Grandparent Diabetes mellitus Social History Social History Smoking status: Never smoker Alcohol intake: never Substance use: never Lack of Transportation: No Lack of Food: Never True Current Housing: I Have Housing Concerned About Future Housing: No Difficulty Paying Gas/Electric Bills: No Difficulty Paying for Meds: No Currently Unemployed: No Education: Decline to Answer Difficulty w/ Childcare or Family Care: No Living arrangements: with family Spiritual care concerns: No Meds Home Medications and Allergies Home Medications Medication Instructions Recorded Confirmed Type allopurinol 100 mg tablet 100 mg PO QAM 11/11/20 08/10/22 History atorvastatin 20 mg tablet 20 mg PO QAM 11/11/20 08/10/22 History dulaglutide 0.75 mg/0.5 mL 0.75 mg subcut WEEKLY 11/11/20 08/10/22 History subcutaneous pen injector (Trulicity) lisinopril 40 mg tablet 40 mg PO QAM 11/11/20 08/10/22 History metformin 500 mg tablet 1,000 mg PO QAM 11/11/20 08/10/22 History cholecalciferol (vitamin D3) 1,250 1,250 mcg PO WEEKLY 01/05/22 08/10/22 History mcg (50,000 unit) tablet sertraline 25 mg tablet 25 mg PO QAM 01/05/22 08/10/22 History dapagliflozin propanediol 5 mg 5 mg 08/10/22 History tablet (Farxiga) Allergies Allergy/AdvReac Type Severity Reaction Status Date / Time Penicillins Allergy Severe Rash Verified 08/10/22 11:26 empagliflozin Allergy Rash Verified 08/10/22 11:26 [From Jardiance] Vital Signs Vital Signs - 24 hr 08/10/22 07:06 08/10/22 07:16 08/10/22 07:17 Temperature 36.6 C Pulse Rate 153 H 154 H 153 H Respiratory Rate 22 H 26 H 30 H Blood Pressure 97/60 L 97/64 L Pulse Oximetry 97 95 94 08/10/22 07:34 08/10/22 07:44 08/10/22 07:36 Temperature Pulse Rate 151 H
[2022-08-10] MEDS: SODIUM CHLORIDE 0.9% IV 1,000 ML 75 ML IV CONT (12:43)
[2022-08-10] MEDS: METOPROLOL SUCCINATE EXT REL 25 MG TABCR PO (12:48)
[2022-08-10] MEDS: INSULIN ASPART (*BKC) 100 UNITS/ML SUB-Q ×3 (12:49→22:00)
--- NOTE | 2022-08-10 15:27 | PM.IMHP ---
H&P: HPI History of Present Illness Date/Time: 08/10/22 15:45 Chief Complaint: Weakness. Narrative: This is a very pleasant 67-year-old female with insulin-dependent diabetes, hypertension, hyperlipidemia, aortic stenosis, severe LVH with left ventricular outflow tract obstruction noted on echocardiogram in June 2014, and uterine cancer status post hysterectomy in February 2022 who presented to the emergency department via EMS from home for evaluation of weakness. The patient provides the following history. She was wakened for sleep at about 330 this morning with feelings of anxiety, sensations of racing heart, mild chest discomfort, and some shortness of breath. Her glucose has been running high recently for some reason and she has had several changes in her diabetic medications (she was taken off of insulin and her glucose has been running high) and she initially thought her symptoms were due to hyperglycemia. She also mentions that she continues to have symptoms of an ongoing urinary tract infection despite being on antibiotics recently. Her symptoms persisted and when she presented to the ED she was found to be in supraventricular tachycardia. She received 5 mg IV Lopressor and she has since converted to a normal sinus rhythm. At the time my evaluation she is feeling much better but continues to have urinary symptoms. She denies syncope, near syncope, fever, chills, sweats, chest and pleuritic pain, orthopnea, paroxysmal nocturnal dyspnea, nausea, vomiting, edema, and calf pain. Review of Systems Review of Systems: Twelve systems were reviewed and are negative except for as per HPI. [facility] Past Medical History Medical History (Updated 08/10/22 @ 23:52 by Gladys Farfan PA-C) Anxiety Aortic stenosis Arthritis Depression Dyslipidemia Gout Hypertension Left ventricular outflow obstruction Severe LVH with an EF greater than 75%, near cavity obliteration, and LV out for tract obstruction on echo in June 2014. Type 2 diabetes mellitus Surgical History Surgical History (Updated 08/10/22 @ 15:34 by Gladys Farfan PA-C) History of benign breast biopsy (08/24/00) Right. History of hysterectomy for cancer (02/2022) History of tubal ligation Family History Family History Mother Ovarian cancer Father Esophageal cancer Sibling Diabetes mellitus Grandparent Diabetes mellitus Social History Social History (Updated 08/10/22 @ 15:36 by Gladys Farfan PA-C) Social History: Surrogate medical decision maker: Morteza Madera, spouse. Code status: Full code. Smoking status: Never smoker Alcohol intake: never Substance use: never Lack of Transportation: No Lack of Food: Never True Current Housing: I Have Housing Concerned About Future Housing: No Difficulty Paying Gas/Electric Bills: No Difficulty Paying for Meds: No Currently Unemployed: No Education: Decline to Answer Difficulty w/ Childcare or Family Care: No Living arrangements: with family Additional living arrangements comments: Lives with spouse in [place]. Spiritual care concerns: No Meds Home Medications and Allergies Home Medications Medication Instructions Recorded Confirmed Type allopurinol 100 mg tablet 100 mg PO QAM 11/11/20 08/10/22 History atorvastatin 20 mg tablet 20 mg PO QAM 11/11/20 08/10/22 History dulaglutide 0.75 mg/0.5 mL 0.75 mg subcut WEEKLY 11/11/20 08/10/22 History subcutaneous pen injector (Trulicity) lisinopril 40 mg tablet 40 mg PO QAM 11/11/20 08/10/22 History metformin 500 mg tablet 1,000 mg PO QAM 11/11/20 08/10/22 History cholecalciferol (vitamin D3) 1,250 1,250 mcg PO WEEKLY 01/05/22 08/10/22 History mcg (50,000 unit) tablet sertraline 25 mg tablet 25 mg PO QAM 01/05/22 08/10/22 History dapagliflozin propanediol 5 mg 5 mg PO DAILY 08/10/22 08/10/22 History tablet (Farxiga) Allergies Allergy/AdvReac Type
[2022-08-10 16:17] LABS: Anion Gap 4 mmol/L (8-16); Blood Urea Nitrogen 13 mg/dL (7-17); Calcium 8.6 mg/dL (8.4-10.2); Carbon Dioxide 28 mmol/L (22-30); Chloride 100 mmol/L (98-107); Estimated Glomerular Filt Rate > 60; Glucose 240 mg/dL (65-110); Potassium 3.6 mmol/L (3.4-5.0); Sodium 132 mmol/L (137-145)
[2022-08-10 16:27] LABS: Beta-Hydroxybutyrate/Acetoacetate 0.18 mmol/L (0.02-0.27); Magnesium 1.5 mg/dL (1.6-2.3)
[2022-08-10 16:28] LABS: Lactic Acid Reflex 1.1 mmol/L (0.7-2.0)
[2022-08-10 17:24] LABS: Glucose Point of Care 222 mg/dl (65-105)
[2022-08-10 18:08] LABS: HAV RESULT Negative (Negative); Hepatitis B Core IgM Result Negative (Negative); Hepatitis B Surface Antigen Negative (Negative)
[2022-08-10 18:10] LABS: Hepatitis C Virus Antibody Negative (Negative)
[2022-08-10 18:21] LABS: Hemoglobin A1C > 14.0 % (<5.7)
[2022-08-10 19:56] LABS: Glucose Point of Care 261 mg/dl (65-105)
[2022-08-10] MEDS: TOLNAFTATE 1% POWDER 45 GM BTL 1 APPLIC TOPICAL (21:57)
[2022-08-10] MEDS: FLUCONAZOLE 100 MG TABLET PO (21:57)
[2022-08-10 22:42] LABS: Glucose Point of Care 280 mg/dl (65-105)
[2022-08-11] VITALS (13 sets, daily range): BP systolic 106–120; BP diastolic 48–60; PULSE 79–89; RESP 14–20; TEMP 35.9–36.4; O2SAT 16–100; BMI 43.6
[2022-08-11] MEDS: MAGNESIUM SULF 2 GM/WATER 50ML 2 GM/50 ML BAG IVPB (01:42)
[2022-08-11 04:24] LABS: Hematocrit 35.1 % (37.0-47.0); Hemoglobin 10.8 g/dL (12.0-15.0); Mean Corpuscular HGB Conc 30.8 g/dl (32-36); Mean Corpuscular Hemoglobin 27.1 pg (26-34); Mean Platelet Volume 12.9 fl (7.4-10.4); Platelet Count Result 219 k/mm3 (150-375); Red Blood Count 3.99 M/mm3 (4.2-5.4); White Blood Count 10.6 K/mm3 (4.5-10.0)
[2022-08-11 04:40] LABS: Alanine Aminotransferase 68 U/L (6-35); Alkaline Phosphatase 490 U/L (38-126); Anion Gap 5 mmol/L (8-16); Aspartate Amino Transferase 80 U/L (14-36); Blood Urea Nitrogen 13 mg/dL (7-17); Calcium 8.3 mg/dL (8.4-10.2); Carbon Dioxide 28 mmol/L (22-30); Chloride 100 mmol/L (98-107); Estimated Glomerular Filt Rate > 60; Glucose 308 mg/dL (65-110); Sodium 133 mmol/L (137-145)
[2022-08-11] MEDS: SODIUM CHLORIDE 0.9% IV 1,000 ML 75 ML IV CONT ×2 (06:40→22:11)
[2022-08-11 07:32] LABS: Glucose Point of Care 297 mg/dl (65-105)
[2022-08-11] MEDS: ENOXAPARIN 40 MG/0.4 ML SYRINGE SUB-Q (08:11)
[2022-08-11] MEDS: INSULIN ASPART (*BKC) 100 UNITS/ML SUB-Q ×4 (08:11→20:04)
[2022-08-11] MEDS: metFORMIN HCL 500 MG TABLET 1000 MG PO (08:12)
[2022-08-11] MEDS: METOPROLOL SUCCINATE EXT REL 25 MG TABCR PO (08:12)
[2022-08-11] MEDS: SERTRALINE HCL 25 MG TABLET PO (08:12)
[2022-08-11] MEDS: allopurinoL 100 MG TABLET PO (08:12)
[2022-08-11] MEDS: TOLNAFTATE 1% POWDER 45 GM BTL 1 APPLIC TOPICAL ×2 (08:12→20:04)
[2022-08-11] MEDS: ATORVASTATIN 20 MG TABLET PO (08:12)
--- NOTE | 2022-08-11 08:13 | PM.IMPN ---
Progress Note: A&P Assessment and Plan (1) Supraventricular tachycardia: Code(s): I47.1 - Supraventricular tachycardia Status: Acute (2) Elevated troponin: Code(s): R77.8 - Other specified abnormalities of plasma proteins Status: Acute (3) Elevated LFTs: Code(s): R79.89 - Other specified abnormal findings of blood chemistry Status: Acute (4) Type 2 diabetes mellitus with hyperglycemia: Code(s): E11.65 - Type 2 diabetes mellitus with hyperglycemia Status: Acute (5) Hyponatremia: Code(s): E87.1 - Hypo-osmolality and hyponatremia Status: Acute (6) Urinary tract infection: Code(s): N39.0 - Urinary tract infection, site not specified Status: Acute (7) Hypertension: Code(s): I10 - Essential (primary) hypertension Status: Acute (8) Dyslipidemia: Code(s): E78.5 - Hyperlipidemia, unspecified Status: Acute (9) Yeast infection: Code(s): B37.9 - Candidiasis, unspecified Status: Acute Plan SVT Patient present ED with a chief complaint of general weakness EKG showed SVT heart rate above 160, pr is states metoprolol 5 mg IV push in the ED. SVT was converted to sinus rhythm Appreciated there is consultation will start metoprolol succinate p.o. 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 q.h.s. Start lantus 10 units q.h.s. Optimize medication for better blood glucose control Follow A1c Her LFTs are elevated, alkaline phosphatase much more so than the others. Right upper quadrant ultrasound suggested mild duct and pancreatic duct dilatation Follow-up MRCP, consult GI for evaluation UTI she now has evidence of yeast infections in the vulvar region and in the axilla. Diflucan x1 ordered. She has been started on ceftriaxone for urinary tract infection, pending urine culture. With her UTI, elevated white blood cell count, tachycardia, and hypotension lactic acid level within normal limits Pending urine culture and blood cultures. Continue Levaquin IV Hold antihypertensives for now given soft blood pressures. . Subjective Date/time seen: 08/11/22 08:13 Interval history: I saw examined today, patient feels better Denies palpitation, but has some abdomen pain located right upper quadrant. Patient denies nausea vomiting Exam Narrative: GENERAL: Pleasant, in no acute distress. Well-nourished. - EYES: EOMI. Anicteric. - HENT: Moist mucous membranes. - LUNGS: Clear to auscultation bilaterally, no wheezing, rhonchi, or rales. - CARDIOVASCULAR: Regular rate and rhythm. No murmur. No JVD. - ABDOMEN: Soft, non-tender and non-distended. No palpable masses. - EXTREMITIES: No edema. Peripheral pulses 2+. Non-tender. - NEUROLOGIC: No focal neurological deficits. CN II-XII grossly intact. - PSYCHIATRIC: Awake, Alert and oriented x 3. Appropriate mood and affect. - SKIN: No rashes or lesions. Warm. - LYMPH: No cervical lymphadenopathy. Objective Data Vital Signs Vital Signs: Vital Signs - 24 hr 08/10/22 08:15 08/10/22 08:16 08/10/22 08:17 Temperature Pulse Rate 86 86 86 Respiratory Rate 22 H 19 Blood Pressure 100/51 L Pulse Oximetry 97 95 95 Oxygen Delivery 08/10/22 08:30 08/10/22 08:32 08/10/22 08:46 Temperature Pulse Rate 86 89 Respiratory Rate 12 20 Blood Pressure 103/56 L 94/57 L Pulse Oximetry Oxygen Delivery 08/10/22 08:48 08/10/22 09:01 08/10/22 09:02 Temperature Pulse Rate 86 83 87 Respiratory Rate 17 24 H 20 Blood Pressure 99/66 L Pulse Oximetry Oxygen Delivery 08/10/22 09:16 08/10/22 09:50 08/10/22 10:10 Temperature Pulse Rate 90 Respiratory Rate 23 H Blood Pressure 95/53 L
[2022-08-11 11:46] LABS: Glucose Point of Care 262 mg/dl (65-105)
--- NOTE | 2022-08-11 13:11 | PM.PNCARD ---
Progress Note: A&P Assessment and Plan (1) Supraventricular tachycardia: Code(s): I47.1 - Supraventricular tachycardia Status: Acute Assessment and Plan: Continue beta claudette. Echo reviewed -- shows: ? 2. Left ventricular chamber dimension is normal. ? 3. There is severely increased left ventricular wall thickness. ? 4. Left ventricular systolic function is hyperdynamic, estimated at >70%, with near cavity obliteration. Left ventricular outflow tract obstruction with peak gradient of 22mmHg.. ? 5. The left ventricular diastolic function is grade I diastolic dysfunction. ? 6. Right ventricular systolic function is normal. ? 7. Left atrial chamber dimension is severely enlarged. ? 8. There is moderate aortic valve stenosis. ? 9. There is mild aortic valve regurgitation. ? 10. The mitral valve annulus is severely calcified. ? 11. The mitral valve has thickened leaflets and calcified leaflets. ? 12. There is moderate mitral valve regurgitation. ? 13. There is mild tricuspid valve regurgitation. Similar findings compared to last echo from 2015. Given LVOTO, avoid hypotension, dehydration for this patient. No further inpatient evaluation, will have patient follow up with us as an outpatient. (2) Non-ST elevated myocardial infarction: Code(s): I21.4 - Non-ST elevation (NSTEMI) myocardial infarction Status: Acute Assessment and Plan: Likely demand ischemia from SVT. No anginal symptoms. Echo results as noted above. No further workup at this time. Plan Cardiology will sign off at this time. Please call us back if needed. Subjective Date/time seen: 08/11/22 13:11 Interval history: Reason for visit: SVT HPI: This is a 67-year-old female with diabetes, hypertension, history of UTIs who presented with generalized weakness and fast heart rate. Patient states her rapid heart rate began about an hour prior to presentation to [place]. Upon arrival to the ED, patient noted to be in SVT with heart rates in the 150s. Patient given IVF and 5mg IV Lopressor. Patient then converted to sinus rhythm and has remained in sinus rhythm. Patient denies any prior cardiac history but states she has occasional palpitations. Date of service 08/11: Patient states she is feeling okay this morning. Slept well. Has MRCP planned for today. Had brief SVT overnight, but patient denies any symptoms with that. Review of Systems Review of Systems: All systems reviewed & are unremarkable except as noted in HPI and below (HPI) Exam Const: General: comfortable and no acute distress Eyes: General: appearance normal, both eyes and all related structures Sclera: sclerae normal Neck: Neck: supple Resp: Effort & Inspection: normal respiratory effort Cardio: Rate: regular rate Rhythm: regular rhythm Skin: General skin exam: normal color Neuro: Speech: normal speech Psych: Mental Status: mental status grossly normal Affect: normal affect Objective Data Vital Signs Vital Signs: Vital Signs - 24 hr 08/10/22 16:00 08/10/22 14:00 08/10/22 16:00 Temperature 36.7 C Pulse Rate 84 91 83 Respiratory Rate 20 Blood Pressure 92/40 L Pulse Oximetry 99 Oxygen Delivery 08/10/22 16:00 08/10/22 18:00 08/10/22 20:00 Temperature 36.3 C L Pulse Rate 90 87 Respiratory Rate 18 Blood Pressure 112/51 L Pulse Oximetry Oxygen Delivery Room Air 08/10/22 20:00 08/11/22 00:00 08/10/22 20:00 Temperature 36.4 C Pulse Rate 87 84 85 Respiratory Rate 18 16 Blood Pressure 117/52 L Pulse Oximetry 99 16 L Oxygen Delivery Room Air 08/11/22 00:00 08/11/22 00:00 08/11/22 02:00 Temperature Pulse Rate 81 84 83 Respiratory Rate 16 Blood Pressure Pulse Oximetry 16 L Oxygen Delivery Room Air 08/11/22 04:00 08/11/22 04:00 08/11/22 06:00 Temperature 36.3 C L Pulse Rate 82 81 83 Respiratory Rate 20 Blood Pressure 106/52 L Pulse Oximetry 97 Oxygen Delivery
--- NOTE | 2022-08-11 13:39 | WPDGICN ---
Assessment and Plan Assessment and plan (1) Elevated LFTs: Code(s): R79.89 - Other specified abnormal findings of blood chemistry Status: Acute Assessment and Plan: Elevated LFTs appear to be nonspecific. I suspect this may be related to infection such as urinary tract infection. Given the fact she is obese fatty liver is certainly a possibility. She has nonspecific biliary dilatation. An ERCP was suggested will be obtained. This does not appear to be clinically significant at 1st impression. Appetite is serologies noted to be negative Suggest following LFTs at this time as her infection is treated. Conservative management advised. MRCP will be reviewed when available. (2) Urinary tract infection: Code(s): N39.0 - Urinary tract infection, site not specified Status: Acute (3) Supraventricular tachycardia: Code(s): I47.1 - Supraventricular tachycardia Status: Acute (4) Type 2 diabetes mellitus: Code(s): E11.9 - Type 2 diabetes mellitus without complications Status: Acute (5) Morbid obesity with BMI of 50.0-59.9, adult: Code(s): E66.01 - Morbid (severe) obesity due to excess calories; Z68.43 - Body mass index [BMI] 50.0-59.9, adult Status: Acute GI Consult Note Consult date/time: 08/11/22 13:39 Reason for consult: Elevated LFTs. HPI: Angelita Madera is a 67 year old female I am asked to see at the request of the hospitalist service because of mild elevation of LFTs. Patient has a history of recurrent urinary tract infections. This has been rather intense she states for the last 2 weeks. She also has had rather poorly controlled diabetes with elevated glucose level. She developed a rapid heart beat prompting her to go to the emergency room. PSVT was identified. laboratory testing reveals that mild elevation of transaminases were identified. For this reason an ultrasound of the right upper quadrant was a suggested. Very mild nonspecific dilatation of the bile ducts were described. For this reason I have been consulted. Patient does report rather mild poorly localized abdominal discomfort some of which is centered in the right upper quadrant. Patient denies any jaundice. She has no prior history gallstones. She denies any significant alcohol intake. Family history is noncontributory. Review of Systems Review of Systems: Review of systems noncontributory. [facility] Past Medical History Medical History (Updated 08/10/22 @ 23:52 by Gladys Farfan PA-C) Anxiety Aortic stenosis Arthritis Depression Dyslipidemia Gout Hypertension Left ventricular outflow obstruction Severe LVH with an EF greater than 75%, near cavity obliteration, and LV out for tract obstruction on echo in June 2014. Type 2 diabetes mellitus Surgical History Surgical History (Updated 08/10/22 @ 15:34 by Gladys Farfan PA-C) History of benign breast biopsy (08/24/00) Right. History of hysterectomy for cancer (02/2022) History of tubal ligation Family History Family History Mother Ovarian cancer Father Esophageal cancer Sibling Diabetes mellitus Grandparent Diabetes mellitus Social History Social History (Updated 08/10/22 @ 15:36 by Gladys Farfan PA-C) Social History: Surrogate medical decision maker: Morteza Madera, spouse. Code status: Full code. Smoking status: Never smoker Alcohol intake: never Substance use: never Lack of Transportation: No Lack of Food: Never True Current Housing: I Have Housing Concerned About Future Housing: No Difficulty Paying Gas/Electric Bills: No Difficulty Paying for Meds: No Currently Unemployed: No Education: Decline to Answer Difficulty w/ Childcare or Family Care: No Living arrangements: with family Additional living arrangements comments: Lives with spouse in [place]. Spiritual care concerns: No
--- NOTE | 2022-08-11 13:47 | PC.NURSE ---
Pt to MRI via wheelchair.
--- NOTE | 2022-08-11 15:10 | PC.NURSE ---
Pt returned from MRI. No issues noted
--- NOTE | 2022-08-11 16:30 | PC.NURSE ---
This patient, Angelita Madera, was transferred to [253 ] on 08/11/22 at 1630. Personal belongings sent with patient. Report given to [ LORENA Quintana @ [phone]]. Appropriate documentation sent with patient.
[2022-08-11 16:58] LABS: Glucose Point of Care 237 mg/dl (65-105)
--- NOTE | 2022-08-11 17:42 | PC.NURSE ---
Patient transferred from IMU to room 253.
[2022-08-11] MEDS: ACETAMINOPHEN 325 MG TABLET 650 MG PO (18:07)
[2022-08-11 18:59] LABS: Glucose Point of Care 229 mg/dl (65-105)
[2022-08-11] MEDS: INSULIN GLARGINE (*BKC) 100 UNITS/ML 20 UNITS SUB-Q (20:04)
[2022-08-11 20:12] LABS: Glucose Point of Care 206 mg/dl (65-105)
[2022-08-11] MEDS: ONDANSETRON INJ 4 MG/2 ML VIAL IV PUSH (20:23)
[2022-08-12] VITALS (11 sets, daily range): BP systolic 108–119; BP diastolic 54–85; PULSE 72–92; RESP 16–18; TEMP 35.9–36.7; O2SAT 94–98
[2022-08-12] MEDS: ACETAMINOPHEN 325 MG TABLET 650 MG PO ×2 (03:49→19:38)
--- NOTE | 2022-08-12 07:46 | PM.IMPN ---
Progress Note: A&P Assessment and Plan (1) Supraventricular tachycardia: Code(s): I47.1 - Supraventricular tachycardia Status: Acute (2) Elevated troponin: Code(s): R77.8 - Other specified abnormalities of plasma proteins Status: Acute (3) Elevated LFTs: Code(s): R79.89 - Other specified abnormal findings of blood chemistry Status: Acute (4) Type 2 diabetes mellitus with hyperglycemia: Code(s): E11.65 - Type 2 diabetes mellitus with hyperglycemia Status: Acute (5) Hyponatremia: Code(s): E87.1 - Hypo-osmolality and hyponatremia Status: Acute (6) Urinary tract infection: Code(s): N39.0 - Urinary tract infection, site not specified Status: Acute (7) Hypertension: Code(s): I10 - Essential (primary) hypertension Status: Acute (8) Dyslipidemia: Code(s): E78.5 - Hyperlipidemia, unspecified Status: Acute (9) Yeast infection: Code(s): B37.9 - Candidiasis, unspecified Status: Acute Plan SVT Patient present ED with a chief complaint of general weakness EKG showed SVT heart rate above 160, pr is states metoprolol 5 mg IV push in the ED. SVT was converted to sinus rhythm Appreciated there is consultation will start metoprolol succinate p.o. Follow echocardiogram unremarkable Telemetry monitoring Elevated troponin Possible demand ischemia due to SVT Patient denies chest pain EKG shows sinus rhythm, nonspecific T-wave changes Follow echocardiogram study unremarkable, Management per complaint adjuster Uncontrolled type 2 diabetes Start insulin sliding scale a.c. q.h.s. Start lantus 20 units q.h.s. Optimize medication for better blood glucose control Follow A1c Her LFTs are elevated, alkaline phosphatase much more so than the others. Right upper quadrant ultrasound suggested mild duct and pancreatic duct dilatation Follow-up MRCP: Mild intrahepatic and extrahepatic biliary duct dilatation with gallbladder distention. Mildly dilated pancreatic duct. No obstructing stone or mass identified, consult GI for evaluation UTI she now has evidence of yeast infections in the vulvar region and in the axilla. Diflucan x1 ordered. Received Levaquin IV once With her UTI, elevated white blood cell count, tachycardia, and hypotension lactic acid level within normal limits Group B streptococcus in urine culture and negative of blood cultures. Patient still has dysuria, urinary urgency frequency and suprapubic pain Continue ceftriaxone IV Hold antihypertensives for now given soft blood pressures. . Subjective Date/time seen: 08/12/22 07:46 Interval history: I saw examined today, patient still has severe pain visit this urination, urgency frequency. Denies palpitation, but has some abdomen pain located right upper quadrant. Patient denies nausea vomiting Exam Narrative: GENERAL: Pleasant, in no acute distress. Well-nourished. - EYES: EOMI. Anicteric. - HENT: Moist mucous membranes. - LUNGS: Clear to auscultation bilaterally, no wheezing, rhonchi, or rales. - CARDIOVASCULAR: Regular rate and rhythm. No murmur. No JVD. - ABDOMEN: Soft, suprapubic tender and non-distended. No palpable masses. - EXTREMITIES: No edema. Peripheral pulses 2+. Non-tender. - NEUROLOGIC: No focal neurological deficits. CN II-XII grossly intact. - PSYCHIATRIC: Awake, Alert and oriented x 3. Appropriate mood and affect. - SKIN: No rashes or lesions. Warm. - LYMPH: No cervical lymphadenopathy. Objective Data Vital Signs Vital Signs: Vital Signs - 24 hr 08/11/22 08:12 08/11/22 08:27 08/11/22 08:00 Temperature Pulse Rate 81 86 Respiratory Rate Blood Pressure Pulse Oximetry 96 Oxygen Delivery Room Air 08/11/22 08:00 08/11/22 10:00 08/11/22 11:57 Temperature 97.1 F L Pulse Rate 81 79 Respiratory Rate 14 Blood Pressure 110/58 L Pulse Oximetry 100 Oxygen Delivery Room Air 08/11/22 12:00 07
[2022-08-12] MEDS: allopurinoL 100 MG TABLET PO (08:20)
[2022-08-12] MEDS: ENOXAPARIN 40 MG/0.4 ML SYRINGE SUB-Q (08:20)
[2022-08-12] MEDS: metFORMIN HCL 500 MG TABLET 1000 MG PO (08:20)
[2022-08-12] MEDS: ATORVASTATIN 20 MG TABLET PO (08:20)
[2022-08-12] MEDS: METOPROLOL SUCCINATE EXT REL 25 MG TABCR PO (08:21)
[2022-08-12] MEDS: TOLNAFTATE 1% POWDER 45 GM BTL 1 APPLIC TOPICAL ×2 (08:22→20:26)
[2022-08-12] MEDS: SERTRALINE HCL 25 MG TABLET PO (08:22)
[2022-08-12] MEDS: INSULIN ASPART (*BKC) 100 UNITS/ML SUB-Q ×3 (08:26→20:24)
[2022-08-12 08:29] LABS: Mean Corpuscular HGB Conc 30.6 g/dl (32-36); Mean Corpuscular Hemoglobin 27.4 pg (26-34); Mean Corpuscular Volume 89.6 fl (80-100); Mean Platelet Volume 12.6 fl (7.4-10.4); Platelet Count Result 249 k/mm3 (150-375); Red Blood Count 4.02 M/mm3 (4.2-5.4); Red Cell Distribution Width 15.3 % (11.5-14.5); White Blood Count 8.5 K/mm3 (4.5-10.0)
[2022-08-12] MEDS: HYDROcodone/acetaminophen (*CRX) 5-325 MG TABLET 1 TAB PO (08:31)
[2022-08-12 08:38] LABS: Anion Gap 6 mmol/L (8-16); Blood Urea Nitrogen 10 mg/dL (7-17); Calcium 8.7 mg/dL (8.4-10.2); Carbon Dioxide 26 mmol/L (22-30); Chloride 103 mmol/L (98-107); Estimated Glomerular Filt Rate > 60; Glucose 234 mg/dL (65-110); Potassium 4.2 mmol/L (3.4-5.0); Sodium 135 mmol/L (137-145)
[2022-08-12 08:42] LABS: Glucose Point of Care 218 mg/dl (65-105)
[2022-08-12 08:52] LABS: Alanine Aminotransferase 251 U/L (6-35); Albumin Level 3.2 g/dL (3.5-5.1); Alkaline Phosphatase 961 U/L (38-126); Aspartate Amino Transferase 443 U/L (14-36); Bilirubin Direct 0.9 mg/dL (0-0.3); Bilirubin,Total 2.7 mg/dL (0.2-1.3)
[2022-08-12 11:59] LABS: Glucose Point of Care 210 mg/dl (65-105)
[2022-08-12] MEDS: SODIUM CHLORIDE 0.9% IV 1,000 ML 75 ML IV CONT (12:02)
--- NOTE | 2022-08-12 13:20 | PCCCNOTE ---
On 08/12/22, the student, [Gracie España ], provided care and completed [facility] documentation on this patient. I have reviewed the student's documentation and agree with the findings.
--- NOTE | 2022-08-12 13:26 | WPDGIPROGNO ---
Progress Note: A&P Assessment and Plan (1) Elevated LFTs: Code(s): R79.89 - Other specified abnormal findings of blood chemistry Status: Acute Assessment and Plan: LFTs more elevated today. They have become elevated since admission hospital. This appears to be from hepatic irritation. The etiology of this unclear. I suspected may be related to medications such as antibiotics. I cannot exclude that infection is contributing to this. Viral hepatitis serologies are negative. MRCP reveals no obstruction to the biliary tree although liver pattern is not obstructive by laboratory testing. Plan to obtain some additional labs may need to stop any unnecessary medications at this point. Continue to monitor LFTs closely. (2) Supraventricular tachycardia: Code(s): I47.1 - Supraventricular tachycardia Status: Acute (3) Urinary tract infection: Code(s): N39.0 - Urinary tract infection, site not specified Status: Acute (4) Elevated troponin: Code(s): R77.8 - Other specified abnormalities of plasma proteins Status: Acute (5) Morbid obesity with BMI of 50.0-59.9, adult: Code(s): E66.01 - Morbid (severe) obesity due to excess calories; Z68.43 - Body mass index [BMI] 50.0-59.9, adult Status: Acute Subjective Date/time seen: 08/12/22 13:26 Interval history: Patient alert comfortable today. patient offers no specific complaints. Vague abdominal discomfort that has previously been described no longer is present. Patient tolerating diet. Review of Systems Review of Systems: Review of systems noncontributory. Exam Narrative: Physical exam reveals patient be alert. Comfortable at rest. Vital signs stable. HEENT exam reveals no icterus. Lungs are clear. Heart without murmur. Abdomen is obese bowel sounds are present soft nontender. No organomegaly evident. Objective Data Vital Signs Vital Signs: Vital Signs - 24 hr 08/11/22 16:00 08/11/22 16:45 08/11/22 20:20 Temperature 96.7 F L Pulse Rate 84 86 Respiratory Rate 18 Blood Pressure 120/48 L Pulse Oximetry 99 Oxygen Delivery Room Air 08/11/22 20:00 08/12/22 00:00 08/12/22 00:00 Temperature 96.6 F L Pulse Rate 81 82 Respiratory Rate 18 Blood Pressure 119/54 L Pulse Oximetry 94 Oxygen Delivery Room Air 08/12/22 04:00 08/12/22 05:09 08/12/22 08:21 Temperature 97.6 F Pulse Rate 91 78 83 Respiratory Rate 18 Blood Pressure 117/58 L Pulse Oximetry 96 Oxygen Delivery Intake/Output Intake/Output: Intake & Output 08/09/22 08/10/22 08/11/22 08/12/22 23:59 23:59 23:59 23:59 Intake Total 2525 2640 1680 Output Total 400 300 Balance 2125 2340 1680 Meds/Results Medications: Active Medications Generic Name Dose Route Start Last Admin Trade Name Freq PRN Reason Stop Dose Admin Acetaminophen 650 mg 08/10/22 15:52 08/12/22 03:49 Acetaminophen 325 Mg Tablet PO 650 mg Q6H PRN Administration Mild Pain (1-3) or Fever Hydrocodone Bitart/Acetaminophen 1 tab 08/12/22 08:23 08/12/22 08:31 Hydrocodone/Acetaminophen (*Crx) 5-325 Mg Tablet PO 1 tab Q4H PRN Administration pain of 4-10 Allopurinol 100 mg 08/11/22 09:00 08/12/22 08:20 Allopurinol 100 Mg Tablet PO 100 mg QAM LUCINA Administration Atorvastatin Calcium 20 mg 08/11/22 09:00 08/12/22 08:20 Atorvastatin 20 Mg Tablet PO 20 mg QAM LUCINA Administration Dextrose 12.5 gm 08/10/22 08:36 Dextrose 50% 25 Gm/50 Ml Syringe IV PUSH PRN PRN Hypoglycemia Protocol Enoxaparin Sodium 40 mg 08/11/22 09:00 08/12/22 08:20 Enoxaparin 40 Mg/0.4 Ml Syringe SUB-Q 40 mg DAILY LUCINA Administration Glucagon 1 mg 08/10/22 08:36 Glucagon For Inj 1 Mg Vial IM PRN PRN Hypoglycemia Protocol Glucose 15 gm 08/10/22 08:36 Glucose Oral Gel 15 Gm Of Glucse In 37.5 Gm Tube PO PRN PRN Hypoglycemia
[2022-08-12 17:07] LABS: Glucose Point of Care 148 mg/dl (65-105)
[2022-08-12 19:19] LABS: Glucose Point of Care 205 mg/dl (65-105)
[2022-08-12] MEDS: INSULIN GLARGINE (*BKC) 100 UNITS/ML 20 UNITS SUB-Q (20:24)
[2022-08-13] VITALS (12 sets, daily range): BP systolic 113–119; BP diastolic 46–55; PULSE 71–87; RESP 16–18; TEMP 36.5–36.9; O2SAT 96–99
[2022-08-13] MEDS: SODIUM CHLORIDE 0.9% IV 1,000 ML 75 ML IV CONT ×2 (00:55→14:31)
[2022-08-13 07:34] LABS: Glucose Point of Care 144 mg/dl (65-105)
--- NOTE | 2022-08-13 09:31 | WPDGIPROGNO ---
Progress Note: A&P Assessment and Plan (1) Elevated LFTs: Code(s): R79.89 - Other specified abnormal findings of blood chemistry Status: Acute Assessment and Plan: Elevated LFTs. Not available this morning on rounds. Repeat labs pending. I suspect this may be related to medications such as antibiotics. Elevated liver function may also be related to recent infection such as urinary tract infection. Suggest follow-up LFTs 1-2 weeks after discharge to ensure resolution. (2) Urinary tract infection: Code(s): N39.0 - Urinary tract infection, site not specified Status: Acute (3) Type 2 diabetes mellitus with hyperglycemia: Code(s): E11.65 - Type 2 diabetes mellitus with hyperglycemia Status: Acute (4) Supraventricular tachycardia: Code(s): I47.1 - Supraventricular tachycardia Status: Acute Subjective Date/time seen: 08/13/22 09:31 Interval history: Patient alert comfortable this morning. Denies abdominal pain. Review of Systems Review of Systems: Review of systems noncontributory. Exam Narrative: Physical exam reveals patient be alert. Comfortable at rest. HEENT exam reveals no icterus. Lungs are clear. Heart without murmur. Abdomen is obese. Bowel sounds are present soft nontender with no organomegaly. Objective Data Vital Signs Vital Signs: Vital Signs - 24 hr 08/12/22 14:24 08/12/22 12:04 08/12/22 16:00 Temperature 98.1 F Pulse Rate 75 72 81 Respiratory Rate 16 Blood Pressure 119/62 Pulse Oximetry 98 Oxygen Delivery Fraction of Inspired Oxygen 08/12/22 19:13 08/12/22 20:00 08/12/22 20:00 Temperature 98 F Pulse Rate 84 76 Respiratory Rate 16 Blood Pressure 108/85 Pulse Oximetry 97 Oxygen Delivery Room Air Fraction of Inspired Oxygen 08/12/22 23:03 08/13/22 00:00 08/13/22 04:00 Temperature Pulse Rate 84 72 73 Respiratory Rate Blood Pressure Pulse Oximetry 97 Oxygen Delivery Room Air Fraction of Inspired Oxygen 21 08/13/22 04:57 Temperature 97.9 F Pulse Rate 71 Respiratory Rate 16 Blood Pressure 115/46 L Pulse Oximetry 96 Oxygen Delivery Fraction of Inspired Oxygen Intake/Output Intake/Output: Intake & Output 08/10/22 08/11/22 08/12/22 08/13/22 23:59 23:59 23:59 23:59 Intake Total 3587 2190 1969 167 Output Total 400 300 Balance 2125 2340 1969 167 Meds/Results Medications: Active Medications Generic Name Dose Route Start Last Admin Trade Name Freq PRN Reason Stop Dose Admin Acetaminophen 650 mg 08/10/22 15:52 08/12/22 19:38 Acetaminophen 325 Mg Tablet PO 650 mg Q6H PRN Administration Mild Pain (1-3) or Fever Hydrocodone Bitart/Acetaminophen 1 tab 08/12/22 08:23 08/12/22 08:31 Hydrocodone/Acetaminophen (*Crx) 5-325 Mg Tablet PO 1 tab Q4H PRN Administration pain of 4-10 Allopurinol 100 mg 08/11/22 09:00 08/12/22 08:20 Allopurinol 100 Mg Tablet PO 100 mg QAM LUCINA Administration Atorvastatin Calcium 20 mg 08/11/22 09:00 08/12/22 08:20 Atorvastatin 20 Mg Tablet PO 20 mg QAM LUCINA Administration Dextrose 12.5 gm 08/10/22 08:36 Dextrose 50% 25 Gm/50 Ml Syringe IV PUSH PRN PRN Hypoglycemia Protocol Enoxaparin Sodium 40 mg 08/11/22 09:00 08/12/22 08:20 Enoxaparin 40 Mg/0.4 Ml Syringe SUB-Q 40 mg DAILY LUCINA Administration Glucagon 1 mg 08/10/22 08:36 Glucagon For Inj 1 Mg Vial IM PRN PRN Hypoglycemia Protocol Glucose 15 gm 08/10/22 08:36 Glucose Oral Gel 15 Gm Of Glucse In 37.5 Gm Tube PO PRN PRN Hypoglycemia Protocol Dextrose 1,000 mls @ 100 mls/hr 08/10/22 08:36 Dextrose 5% 1,000 Ml IVPB PRN PRN Hypoglycemia Protocol Sodium Chloride 1,000 mls @ 75 mls/hr 08/10/22 09:10 08/13/22 00:55 Normal Saline Iv IV CONT 75 mls/hr .[id number] LUCINA Administration Ceftriaxone Sodium 1 gm in 50
[2022-08-13] MEDS: metFORMIN HCL 500 MG TABLET 1000 MG PO (09:59)
[2022-08-13] MEDS: allopurinoL 100 MG TABLET PO (09:59)
[2022-08-13] MEDS: METOPROLOL SUCCINATE EXT REL 25 MG TABCR PO (09:59)
[2022-08-13] MEDS: ATORVASTATIN 20 MG TABLET PO (09:59)
[2022-08-13] MEDS: SERTRALINE HCL 25 MG TABLET PO (10:00)
[2022-08-13] MEDS: ENOXAPARIN 40 MG/0.4 ML SYRINGE SUB-Q (10:01)
[2022-08-13] MEDS: ACETAMINOPHEN 325 MG TABLET 650 MG PO (10:13)
[2022-08-13 10:22] LABS: Alanine Aminotransferase 257 U/L (6-35); Albumin Level 3.2 g/dL (3.5-5.1); Alkaline Phosphatase 804 U/L (38-126); Aspartate Amino Transferase 288 U/L (14-36); Bilirubin,Total 1.3 mg/dL (0.2-1.3)
[2022-08-13 11:34] LABS: Glucose Point of Care 179 mg/dl (65-105)
--- NOTE | 2022-08-13 14:09 | PM.IMPN ---
Progress Note: A&P Assessment and Plan (1) Supraventricular tachycardia: Code(s): I47.1 - Supraventricular tachycardia Status: Acute (2) Elevated troponin: Code(s): R77.8 - Other specified abnormalities of plasma proteins Status: Acute (3) Elevated LFTs: Code(s): R79.89 - Other specified abnormal findings of blood chemistry Status: Acute (4) Type 2 diabetes mellitus with hyperglycemia: Code(s): E11.65 - Type 2 diabetes mellitus with hyperglycemia Status: Acute (5) Hyponatremia: Code(s): E87.1 - Hypo-osmolality and hyponatremia Status: Acute (6) Urinary tract infection: Code(s): N39.0 - Urinary tract infection, site not specified Status: Acute (7) Hypertension: Code(s): I10 - Essential (primary) hypertension Status: Acute (8) Dyslipidemia: Code(s): E78.5 - Hyperlipidemia, unspecified Status: Acute (9) Yeast infection: Code(s): B37.9 - Candidiasis, unspecified Status: Acute Plan SVT Patient present ED with a chief complaint of general weakness EKG showed SVT heart rate above 160, pr is states metoprolol 5 mg IV push in the ED. SVT was converted to sinus rhythm Appreciated there is consultation Continue metoprolol succinate p.o. 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 q.h.s. Start lantus 20 units q.h.s. Optimize medication for better blood glucose control Follow A1c Her LFTs are elevated, alkaline phosphatase much more so than the others. Right upper quadrant ultrasound suggested mild duct and pancreatic duct dilatation Follow-up MRCP: Mild intrahepatic and extrahepatic biliary duct dilatation with gallbladder distention. Mildly dilated pancreatic duct. No obstructing stone or mass identified, consult GI for evaluation UTI she now has evidence of yeast infections in the vulvar region and in the axilla. Diflucan x1 ordered. Received Levaquin IV once With her UTI, elevated white blood cell count, tachycardia, and hypotension lactic acid level within normal limits Group B streptococcus in urine culture and negative of blood cultures. Patient still has dysuria, urinary urgency frequency and suprapubic pain Continue ceftriaxone IV Hold antihypertensives for now given soft blood pressures. . Subjective Date/time seen: 08/13/22 14:09 Interval history: I saw exam patient today, patient feels dysuria is improving, still has urinary urgency frequency. Afebrile, hemodynamically stable. Patient denies chest pain, shortness of breath palpitation Exam Narrative: GENERAL: Pleasant, in no acute distress. Well-nourished. - EYES: EOMI. Anicteric. - HENT: Moist mucous membranes. - LUNGS: Clear to auscultation bilaterally, no wheezing, rhonchi, or rales. - CARDIOVASCULAR: Regular rate and rhythm. No murmur. No JVD. - ABDOMEN: Soft, suprapubic tender and non-distended. No palpable masses. - EXTREMITIES: No edema. Peripheral pulses 2+. Non-tender. - NEUROLOGIC: No focal neurological deficits. CN II-XII grossly intact. - PSYCHIATRIC: Awake, Alert and oriented x 3. Appropriate mood and affect. - SKIN: No rashes or lesions. Warm. - LYMPH: No cervical lymphadenopathy. Objective Data Vital Signs Vital Signs: Vital Signs - 24 hr 08/12/22 14:24 08/12/22 16:00 08/12/22 19:13 Temperature 98.1 F 98 F Pulse Rate 75 81 84 Respiratory Rate 16 16 Blood Pressure 119/62 108/85 Pulse Oximetry 98 97 Oxygen Delivery Fraction of Inspired Oxygen 08/12/22 20:00 08/12/22 20:00 08/12/22 23:03 Temperature Pulse Rate 76 84 Respiratory Rate Blood Pressure Pulse Oximetry 97 Oxygen Delivery Room Air [facility]
[2022-08-13 17:05] LABS: Glucose Point of Care 212 mg/dl (65-105)
--- NOTE | 2022-08-13 18:02 | PC.NURSE ---
Dr Murdock notified of glucose 212 and holding novolog sliding scale due to patient not eating dinner
[2022-08-13] MEDS: TOLNAFTATE 1% POWDER 45 GM BTL 1 APPLIC TOPICAL ×2 (18:56→20:42)
[2022-08-13 20:12] LABS: Glucose Point of Care 289 mg/dl (65-105)
[2022-08-13] MEDS: INSULIN ASPART (*BKC) 100 UNITS/ML SUB-Q (20:41)
[2022-08-13] MEDS: INSULIN GLARGINE (*BKC) 100 UNITS/ML 20 UNITS SUB-Q (20:42)
[2022-08-14] VITALS: PULSE 74
[2022-08-14] MEDS: SODIUM CHLORIDE 0.9% IV 1,000 ML 75 ML IV CONT (03:51)
[2022-08-14 04:00] VITALS: PULSE 74
[2022-08-14 04:18] VITALS: BP 111/44; PULSE 72; RESP 16; TEMP 36.6; O2SAT 96
[2022-08-14 07:56] LABS: Glucose Point of Care 177 mg/dl (65-105)
[2022-08-14 08:00] VITALS: BP 139/60; PULSE 70; PULSE 71
[2022-08-14] MEDS: metFORMIN HCL 500 MG TABLET 1000 MG PO (08:06)
[2022-08-14] MEDS: allopurinoL 100 MG TABLET PO (08:07)
[2022-08-14] MEDS: SERTRALINE HCL 25 MG TABLET PO (08:07)
[2022-08-14] MEDS: ATORVASTATIN 20 MG TABLET PO (08:07)
[2022-08-14 08:08] VITALS: PULSE 71
[2022-08-14] MEDS: ENOXAPARIN 40 MG/0.4 ML SYRINGE SUB-Q (08:08)
[2022-08-14] MEDS: METOPROLOL SUCCINATE EXT REL 25 MG TABCR PO (08:08)
--- NOTE | 2022-08-14 08:17 | WPDGIPROGNO ---
Progress Note: A&P Assessment and Plan (1) Elevated LFTs: Code(s): R79.89 - Other specified abnormal findings of blood chemistry Status: Acute Assessment and Plan: LFTs remain elevated but have improved. Patient has no symptoms at present. Ultrasound and MRCP findings are nonspecific. Recommend follow-up LFTs 1 week after discharge. The patient follow-up in the GI office electively if these remain elevated. I suspect this may be related to medications, or recent infection. (2) Urinary tract infection: Code(s): N39.0 - Urinary tract infection, site not specified Status: Acute (3) Type 2 diabetes mellitus with hyperglycemia: Code(s): E11.65 - Type 2 diabetes mellitus with hyperglycemia Status: Acute (4) Supraventricular tachycardia: Code(s): I47.1 - Supraventricular tachycardia Status: Acute Subjective Date/time seen: 08/14/22 08:17 Interval history: Patient alert comfortable this morning. She offers no complaints. Review of Systems Review of Systems: Review of systems noncontributory. Exam Narrative: Physical exam reveals patient be alert comfortable at rest. She is anicteric. Lungs are clear. Heart without murmur. Abdomen is obese. Bowel sounds are present soft nontender with no organomegaly. No tenderness noted. Objective Data Vital Signs Vital Signs: Vital Signs - 24 hr 08/13/22 09:57 08/13/22 09:59 08/13/22 10:00 Temperature Pulse Rate 75 75 Respiratory Rate Blood Pressure 118/54 L Pulse Oximetry Oxygen Delivery Room Air Fraction of Inspired Oxygen 08/13/22 12:00 08/13/22 14:15 08/13/22 16:00 Temperature 98.5 F Pulse Rate 80 79 87 Respiratory Rate 18 Blood Pressure 119/55 L Pulse Oximetry 96 Oxygen Delivery Fraction of Inspired Oxygen 08/13/22 19:16 08/13/22 20:00 08/14/22 00:00 Temperature 97.7 F Pulse Rate 80 80 74 Respiratory Rate 18 Blood Pressure 113/48 L Pulse Oximetry 96 Oxygen Delivery Fraction of Inspired Oxygen 08/13/22 21:00 08/14/22 04:07 08/14/22 04:17 Temperature 97.8 F 97.5 F L Pulse Rate 74 72 68 Respiratory Rate 20 26 H Blood Pressure 111/44 L 120/70 Pulse Oximetry 99 96 96 Oxygen Delivery Room Air Fraction of Inspired Oxygen 08/14/22 04:00 08/14/22 04:18 08/14/22 08:00 Temperature 97.8 F Pulse Rate 74 72 71 Respiratory Rate 16 Blood Pressure 111/44 L 139/60 Pulse Oximetry 96 Oxygen Delivery Fraction of Inspired Oxygen 08/14/22 08:08 Temperature Pulse Rate 71 Respiratory Rate Blood Pressure Pulse Oximetry Oxygen Delivery Fraction of Inspired Oxygen Intake/Output Intake/Output: Intake & Output 08/11/22 08/12/22 08/13/22 08/14/22 23:59 23:59 23:59 23:59 Intake Total 2640 1969 2922 1150 Output Total 300 Balance 2340 1969 292 1150 Meds/Results Medications: Active Medications Generic Name Dose Route Start Last Admin Trade Name Freq PRN Reason Stop Dose Admin Acetaminophen 650 mg 08/10/22 15:52 08/13/22 10:13 Acetaminophen 325 Mg Tablet PO 650 mg Q6H PRN Administration Mild Pain (1-3) or Fever Hydrocodone Bitart/Acetaminophen 1 tab 08/12/22 08:23 08/12/22 08:31 Hydrocodone/Acetaminophen (*Crx) 5-325 Mg Tablet PO 1 tab Q4H PRN Administration pain of 4-10 Allopurinol 100 mg 08/11/22 09:00 08/14/22 08:07 Allopurinol 100 Mg Tablet PO 100 mg QAM LUCINA Administration Atorvastatin Calcium 20 mg 08/11/22 09:00 08/14/22 08:07 Atorvastatin 20 Mg Tablet PO 20 mg QAM LUCINA Administration Dextrose 12.5 gm 08/10/22 08:36 Dextrose 50% 25 Gm/50 Ml Syringe IV PUSH PRN PRN Hypoglycemia Protocol Enoxaparin Sodium 40 mg 08/11/22 09:00 08/14/22 08:08 Enoxaparin 40 Mg/0.4 Ml Syringe SUB-Q 40 mg DAILY LUCINA Administration Glucagon 1 mg 08/10/22 08:36 Glucagon For Inj 1 Mg Vial IM PRN PRN Hypoglyc
--- NOTE | 2022-08-14 09:51 | PM.DS ---
DS: Admitting Diagnosis Discharge Date Today Admitting Diagnosis (1) Supraventricular tachycardia: ?Code(s): I47.1 - Supraventricular tachycardia ?Status:?Acute (2) Elevated troponin: ?Code(s): R77.8 - Other specified abnormalities of plasma proteins ?Status:?Acute (3) Elevated LFTs: ?Code(s): R79.89 - Other specified abnormal findings of blood chemistry ?Status:?Acute (4) Type 2 diabetes mellitus with hyperglycemia: ?Code(s): E11.65 - Type 2 diabetes mellitus with hyperglycemia ?Status:?Acute (5) Hyponatremia: ?Code(s): E87.1 - Hypo-osmolality and hyponatremia ?Status:?Acute (6) Urinary tract infection: ?Code(s): N39.0 - Urinary tract infection, site not specified ?Status:?Acute (7) Hypertension: ?Code(s): I10 - Essential (primary) hypertension ?Status:?Acute (8) Dyslipidemia: ?Code(s): E78.5 - Hyperlipidemia, unspecified ?Status:?Acute DS: Discharge Diagnosis Discharge Diagnosis (1) Supraventricular tachycardia: Code(s): I47.1 - Supraventricular tachycardia Status: Acute (2) Elevated troponin: Code(s): R77.8 - Other specified abnormalities of plasma proteins Status: Acute (3) Elevated LFTs: Code(s): R79.89 - Other specified abnormal findings of blood chemistry Status: Acute (4) Type 2 diabetes mellitus with hyperglycemia: Code(s): E11.65 - Type 2 diabetes mellitus with hyperglycemia Status: Acute (5) Hyponatremia: Code(s): E87.1 - Hypo-osmolality and hyponatremia Status: Acute (6) Urinary tract infection: Code(s): N39.0 - Urinary tract infection, site not specified Status: Acute (7) Hypertension: Code(s): I10 - Essential (primary) hypertension Status: Acute (8) Dyslipidemia: Code(s): E78.5 - Hyperlipidemia, unspecified Status: Acute (9) Yeast infection: Code(s): B37.9 - Candidiasis, unspecified Status: Acute Plan . DS: Summary Hospital Course Reason for hospitalization: General weakness Hospital Course: Per H&P This is a very pleasant 67-year-old female with insulin-dependent diabetes, hypertension, hyperlipidemia, aortic stenosis, severe LVH with left ventricular outflow tract obstruction noted on echocardiogram in June 2014, and uterine cancer status post hysterectomy in February 2022 who presented to the emergency department via EMS from home for evaluation of weakness. The patient provides the following history. She was wakened for sleep at about 330 this morning with feelings of anxiety, sensations of racing heart, mild chest discomfort, and some shortness of breath. Her glucose has been running high recently for some reason and she has had several changes in her diabetic medications (she was taken off of insulin and her glucose has been running high) and she initially thought her symptoms were due to hyperglycemia. She also mentions that she continues to have symptoms of an ongoing urinary tract infection despite being on antibiotics recently. Her symptoms persisted and when she presented to the ED she was found to be in supraventricular tachycardia. She received 5 mg IV Lopressor and she has since converted to a normal sinus rhythm. At the time my evaluation she is feeling much better but continues to have urinary symptoms. She denies syncope, near syncope, fever, chills, sweats, chest and pleuritic pain, orthopnea, paroxysmal nocturnal dyspnea, nausea, vomiting, edema, and calf pain. During hospitalization, the following medical issues have been addressed SVT Patient present ED with a chief complaint of general weakness EKG showed SVT heart rate above 160, pr is states metoprolol 5 mg IV push in the ED. SVT was converted to sinus rhythm Appreciated there is consultation Continue metoprolol succinate p.o. at discharge Follow echocardiogram unremarkable Telemetry monitoring: NSR Elevated troponin Possible d
== END 2022-08-14 11:30 | disposition home or self-care (01) | DRG 309 ==
LOC: ANHED 09:24 → ANHIMU 09:25 → ANH2MED 08-11 16:36
PROVIDERS: Internal Medicine; Internal Medicine Gastroenterology; Physician Assistant; Admitting Provider Hospitalist; Emergency Provider Emergency Medicine; PCP Family Medicine; Visit Provider Hospitalist
DX: I47.1 Supraventricular tachycardia (principal); E87.1 Hypo-osmolality and hyponatremia; Z68.41 Body mass index [BMI] 40.0-44.9, adult; I24.8 Other forms of acute ischemic heart disease; N39.0 Urinary tract infection, site not specified; B95.1 Streptococcus, group B, as the cause of diseases classified elsewhere; E66.01 Morbid (severe) obesity due to excess calories; I35.0 Nonrheumatic aortic (valve) stenosis; E78.5 Hyperlipidemia, unspecified; E11.65 Type 2 diabetes mellitus with hyperglycemia; I10 Essential (primary) hypertension; B37.31 Acute candidiasis of vulva and vagina; B37.2 Candidiasis of skin and nail; M19.90 Unspecified osteoarthritis, unspecified site; Z90.710 Acquired absence of both cervix and uterus; Z79.84 Long term (current) use of oral hypoglycemic drugs
CPT/HCPCS: 36415; 71045; 74183; 76376; 76705; 80048; 80053; 80074; 80076; 81001; 82010; 82948; 83036; 83605; 83735; 84443; 84484; 85025; 85027; 85055; 87040; 87077; 87086; 87088; 93005; 93306; 96361; 96365; 96367; 96375; 99285; A9270; A9577; G0378; J0696; J1650; J1815; J1956; J2405; J3475; J7030

== ENCOUNTER 2022-09-13 09:25 | Outpatient (RCR) | payer MEDICARE, SELFPAY ==
[2022-09-13 10:02] VITALS: BMI 40.8
[2022-09-13 10:03] VITALS: BMI 40.8
== END 2022-11-28 09:52 | disposition home or self-care (01) ==
LOC: ANHDMC 09:25
PROVIDERS: PCP Family Medicine; Visit Provider Internal Medicine
DX: E11.65 Type 2 diabetes mellitus with hyperglycemia (principal); Z68.43 Body mass index [BMI] 50.0-59.9, adult; Z71.3 Dietary counseling and surveillance
CPT/HCPCS: 97802

== ENCOUNTER 2022-09-26 09:10 | Outpatient (CLI) | payer MEDICARE, SELFPAY ==
--- NOTE | ~2022-09-26 | CT_ITS ---
EXAMINATION: CT abdomen pelvis w con DATE: 09/26/2022 09:43 INDICATION: Unspecified jaundice. TECHNIQUE: Computed tomography (CT) of the abdomen and pelvis was performed with 100 mL Omnipaque 350 intravenous contrast. Automated exposure control and iterative reconstruction technique were employe d. The dose-length product was 1362.11 mGy-cm. COMPARISON: MRCP 08/11/2022 FINDINGS: The visualized portions of the lung bases demonstrate mild atelectasis. No pleural effusion . The heart size is normal. There are coronary artery calcifications. There are calcifications of the aortic valve. No pericardial effusion. There is mild intrahepatic biliary duct dilatation. The commo n duct is dilated to 16 mm. The gallbladder is distended. The spleen, pancreas, adrenal glands, and k idneys are normal. There are no dilated loops of bowel. The appendix is normal. There is an umbilical hernia containing fat. There is a 4.7 cm cyst in right adnexa, likely benign. There are no pathologi umu enlarged lymph nodes. There is no free intraperitoneal fluid. There is mild lumbar spondylosis. There are bridging endplate osteophytes at multiple levels in the thoracic spine, consistent with di ffuse idiopathic skeletal hyperostosis (DISH). IMPRESSION: 1. Mild intrahepatic and extrahepatic biliary duct dilatation with gallbladder distention. No obstruc ting stone or mass identified. 2. 4.7 cm cyst in right adnexa, likely benign. Pelvis ultrasound is recommended in one year. Reviewed, dictated and finalized at location A. IMPRESSION: 1. Mild intrahepatic and extrahepatic biliary duct dilatation with gallbladder distention. No obstructing stone or mass identified. 2. 4.7 cm cyst in right adnexa, likely benign. Pelvis ultrasound is recommended in one year.
[2022-09-26 09:39] LABS: Estimated Glomerular Filt Rate > 60
[2022-09-26 10:54] LABS: Alanine Aminotransferase 178 U/L (6-35); Albumin Level 3.7 g/dL (3.5-5.1); Alkaline Phosphatase 1054 U/L (38-126); Aspartate Amino Transferase 226 U/L (14-36); Bilirubin Direct 1.7 mg/dL (0-0.3); Bilirubin,Total 7.1 mg/dL (0.2-1.3)
== END 2022-09-26 09:11 | disposition home or self-care (01) ==
PROVIDERS: PCP Family Medicine; Visit Provider Internal Medicine Gastroenterology
DX: R17 Unspecified jaundice (principal); R79.89 Other specified abnormal findings of blood chemistry
CPT/HCPCS: 74177; 80076; Q9967

== ENCOUNTER 2022-10-18 05:10 | Outpatient (CLI) | payer MEDICARE, SELFPAY ==
--- NOTE | 2022-10-17 13:56 | PC.NURSE ---
Pre Radiology instructions Report to the outpatient nanette johnson on date _10/18/22____ at time 0600 for procedure Time: _0800___ YOU MAY BE MONITORED AT HOSPITAL FOR UP TO 4 HOURS AFTER YOUR PROCEDURE. A visitor will be allowed to accompany the patient into the hospital. You and your visitor will be asked to self-screen and do not enter if you have any COVID symptoms. A mask is OPTIONAL within the hospital. Patients are to have no food or drink 6 hours prior to procedure time Driving will be restricted after the procedure, you must have a person to drive you home. Labs will be drawn in preop area and once reviewed, you will be taken to radiology area for procedure. When the procedure is completed, you will be taken to outpatient where you will be monitored for several hours. You may have one visitor in this area. Other than holding anti-coagulants, patient may take other medication(s) as scheduled. Prior to your appointment date patients are instructed to hold anti-coagulants after discussing with ordering provider to stop. If unable to discontinue anti-coagulants please notify radiologist. ? No aspirin or warfarin (Coumadin) for 7 days prior to the procedure. ? No clopidogrel (Plavix), ticagrelor (Brilinta), prasugrel (Effient) or dabigatran (Pradaxa) for 5 days prior to the procedure. ? No rivaroxaban (Xarelto), apixaban (Eliquis), dipyridamole (Aggrenox or Persantine) or cilostazol (Pletal) for 2 days prior to the procedure. Medications to discontinue per physician: NONE Date to take last dose: Please leave all valuables, including medications, at home the day of procedure. The hospital will not accept responsibility for valuables. Wear comfortable, loose fitting clothing.? Follow any additional instructions given to you from ordering provider. Telephone instructions given to __PATIENT and asked if any additional questions and then verbalized understanding. Patient advised to call scheduling provider office or registration scheduling [phone] if any additional questions.
[2022-10-17 14:02] VITALS: BMI 40.1
[2022-10-18] VITALS (11 sets, daily range): BP systolic 90–121; BP diastolic 34–69; PULSE 59–68; RESP 12–18; TEMP 36.2; O2SAT 100; BMI 41.5
--- NOTE | ~2022-10-18 | US_ITS ---
EXAMINATION: US biopsy liver DATE: 10/18/2022 09:43 INDICATION: Unspecified jaundice. TECHNIQUE: The procedure including the risks, benefits, and alternatives was discussed with the patie nt. Risks discussed included bleeding and infection. The patient understood the risks and agreed to p roceed. The skin overlying the liver was prepped and draped in usual sterile fashion. Anesthetic was administered with 1% lidocaine subcutaneously. An 18 gauge core biopsy needle was then used to obta in 3 core biopsy specimens under continuous sonographic guidance. The entry site was cleaned and dres sed. There were no immediate complications. FINDINGS: Ultrasound images demonstrate the needle in left hepatic lobe. IMPRESSION: 1. Ultrasound-guided core needle random liver biopsy. Reviewed, dictated and finalized at location A.
[2022-10-18 06:48] LABS: Glucose Point of Care 196 mg/dl (65-105)
[2022-10-18 06:55] LABS: Immature Platelet Fraction Pct 21.4 % (0.9-11.2); Mean Platelet Volume 14.5 fl (7.4-10.4); Platelet Count Result 196 k/mm3 (150-375)
[2022-10-18 07:11] LABS: Prothrombin Time 13.4 Seconds (11.1-14.7)
[2022-10-18 08:33] LABS: Glucose Point of Care 213 mg/dl (65-105)
--- NOTE | 2022-10-18 08:50 | SUR.PHASEII ---
Dr. Hughes aware of BG 213.
== END 2022-10-18 12:35 | disposition home or self-care (01) ==
PROVIDERS: PCP Family Medicine; Referring Provider Nurse Practitioner Family; Visit Provider Radiology Diagnostic Radiology
PROC: BF45ZZZ Ultrasonography of Liver (ICD-10-PCS; CPT 47000; principal; 2022-10-18 08:00)
DX: K75.89 Other specified inflammatory liver diseases (principal); E11.9 Type 2 diabetes mellitus without complications; I10 Essential (primary) hypertension
CPT/HCPCS: 36415; 47000; 76942; 82948; 85049; 85055; 85610; 88307; 88312; 88313; 88342

== ENCOUNTER 2022-10-20 09:15 | Outpatient (RCR) | payer MEDICARE, SELFPAY | END 2022-11-28 09:48 | disposition home or self-care (01) | LOC: ANHDMC 09:15 | PROVIDERS: PCP Family Medicine; Visit Provider Internal Medicine | DX: E11.65 Type 2 diabetes mellitus with hyperglycemia (principal); Z71.89 Other specified counseling | CPT/HCPCS: G0108 ==

== ENCOUNTER 2022-10-23 12:54 | Inpatient (IN) | payer MEDICARE, SELFPAY ==
[2022-10-23] VITALS (13 sets, daily range): BP systolic 92–166; BP diastolic 36–75; PULSE 62–73; RESP 12–24; TEMP 36.3–36.5; O2SAT 93–100; BMI 43.8
--- NOTE | ~2022-10-23 | XR_ITS ---
EXAMINATION: XR ERCP DATE: 10/25/2022 15:34 INDICATION: Gallstones TECHNIQUE: Single fluoroscopic spot image of the right upper quadrant was obtained during endoscopic retrograde cholangiopancreatography (ERCP) performed by Dr. Candelaria. Radiologist was not present for t he imaging or procedure. The amount of fluoroscopy time used during this procedure was 1.4 minutes. COMPARISON: None. FINDINGS: Image demonstrates endoscopic cannulation and retrograde contrast injection into the main pancreatic duct which appears normal. The common bile duct is not opacified. IMPRESSION: 1. Fluoroscopy utilized during ERCP. Contrast opacified portion of the main pancreatic duct is normal . The common bile duct is not opacified. Please refer to the ERCP procedure note for additional detai ls. Reviewed, dictated and finalized at location A. IMPRESSION: 1. Fluoroscopy utilized during ERCP. Contrast opacified portion of the main au creatic duct is normal. The common bile duct is not opacified. Please refer to the ERCP procedure note for additional details.
--- NOTE | ~2022-10-23 | CT_ITS ---
EXAMINATION: CT abdomen pelvis w con DATE: 10/23/2022 14:50 INDICATION: Right upper quadrant abdominal pain post liver biopsy TECHNIQUE: Computed tomography (CT) of the abdomen and pelvis was performed with 100 mL Omnipaque-350 intravenous contrast. Automated exposure control and iterative reconstruction technique were employe d. The dose-length product was 1472.97 mGy-cm. COMPARISON: CT dated 09/26/2022 FINDINGS: Tiny bilateral posterior layering pleural effusions with dependent atelectasis in the bilateral lower lobes. Heart size is normal. Prominent aortic valve and mitral annular calcification. No pericardial effusion. Unchanged dilation of the common bile duct which measures up to 1.7 cm with interval progr ession of now moderate intrahepatic biliary ductal dilation. The gallbladder remains dilated but with out evident wall thickening or pericholecystic inflammatory stranding to suggest acute cholecystitis. No evident calcified gallstones. The distalmost common bile duct tapers however this appears somewha t asymmetric with a concave margin on the left/medial side of the tapering which raises some concern for malignancy. There is new peripancreatic inflammatory stranding with small amount of peripancreati c fluid extending caudally along the left and to lesser degree right anterior pararenal spaces. Findi ngs are most suggestive of acute interstitial pancreatitis. No evident pancreatic ductal dilation, he morrhage or acute necrotic collections. Spleen, bilateral adrenal glands and kidneys are normal. Aleksander ls including the appendix are normal. Small umbilical hernia containing fat and a minimal amount of a scites. Bladder is normal. The uterus is not identified and has likely been surgically resected. Unch anged 4.7 cm right adnexal cyst. Minimal likely reactive ascites. No abscess or free intraperitoneal gas. No pathologically enlarged abdominal or pelvic lymphadenopathy. Mild thoracic and lumbar spondyl osis with bridging osteophytes at multiple levels in the spine, consistent with diffuse idiopathic sk eletal hyperostosis (DISH). IMPRESSION: 1. Interval progression of intra and extra hepatic biliary ductal dilation with suggestion of possibl e small obstructing soft tissue density mass near the ampulla. Recommend ERCP for further evaluation. 2. Peripancreatic inflammatory stranding consistent with likely secondary acute interstitial pancreat itis. 3. Small umbilical hernia containing fat and minimal ascites. 4. Unchanged 4.7 cm right adnexal cyst, likely benign. Consider 1 year follow-up ultrasound. Reviewed, dictated and finalized at location A. IMPRESSION: 1. Interval progression of intra and extra hepatic biliary ductal dilation with suggestion of possible small obstructing soft tissue density mass near the amp ileana. Recommend ERCP for further evaluation. 2. Peripancreatic inflammatory stranding consistent with likely secondary acute interstitial pancreatitis. 3. Small umbilical hernia containing fat and minimal ascites. 4. Unchanged 4.7 cm right adnexal cyst, likely benign. Consider 1 year follow-u p ultrasound.
--- NOTE | 2022-10-23 13:01 | ECG_ITS ---
Measurements Intervals [place] Rate: 72 P: 55 MO: 195 QRS: 38 QRSD: 86 T: 41 QT: 420 QTc: 460 Interpretive Statements SINUS RHYTHM BORDERLINE ST-T WAVE ABNORMALITY- ANTEROLAT/INF LEADS BORDERLINE ECG COMPARED TO ECG 08/10/2022 07:41:39 NO SIGNIFICANT CHANGES Electronically Signed On 10-23-2022 16:00:39 CDT by See Mario D.O.
[2022-10-23 13:26] LABS: Basophils Absolute Auto 0.1 K/mm3 (0.0-0.1); Basophils Percent Auto 0.9 % (0.2-1.2); Eosinophils Absolute Auto 0.1 K/mm3 (0-0.3); Hemoglobin 9.8 g/dL (12.0-15.0); Immature Granulocyte Absolute 0.08 K/mm3 (0.00-0.031); Immature Granulocyte Percent A 0.8 % (0-0.5); Immature Platelet Fraction Pct 17.4 % (0.9-11.2); Lymphocytes Absolute Auto 0.82 K/mm3 (0.9-3.2); Lymphocytes Percent Auto 8.2 % (18.3-44.2); Mean Corpuscular HGB Conc 32.7 g/dl (32-36); Mean Corpuscular Hemoglobin 31.2 pg (26-34); Mean Corpuscular Volume 95.5 fl (80-100); Mean Platelet Volume 13.7 fl (7.4-10.4); Monocytes Absolute Auto 1.1 K/mm3 (0.1-0.6); Monocytes Percent Auto 10.8 % (2.6-8.5); Neutrophils Absolute Auto 7.9 K/mm3 (1.3-6.7); Neutrophils Percent Auto 78.3 % (45.5-73.1); Platelet Count Result 216 k/mm3 (150-375); Red Blood Count 3.14 M/mm3 (4.2-5.4); Red Cell Distribution Width 20.2 % (11.5-14.5); White Blood Count 10.1 K/mm3 (4.5-10.0)
[2022-10-23 13:36] LABS: Lactic Acid Reflex 1.4 mmol/L (0.7-2.0)
[2022-10-23 13:38] LABS: Ammonia < 9 umol/L (9-30)
[2022-10-23 14:00] LABS: Alanine Aminotransferase 112 U/L (6-35); Albumin Level 3.1 g/dL (3.5-5.1); Alkaline Phosphatase 1041 U/L (38-126); Anion Gap 12 mmol/L (8-16); Aspartate Amino Transferase 178 U/L (14-36); Blood Urea Nitrogen 22 mg/dL (7-17); Calcium 8.5 mg/dL (8.4-10.2); Carbon Dioxide 22 mmol/L (22-30); Chloride 102 mmol/L (98-107); Estimated Glomerular Filt Rate > 60; Glucose 129 mg/dL (65-110); Potassium 3.2 mmol/L (3.4-5.0); Sodium 136 mmol/L (137-145)
[2022-10-23 14:08] LABS: Lipase 16132 U/L (23-300)
--- NOTE | 2022-10-23 14:09 | ED.WEAKNESS ---
HPI - Weakness General Chief complaint: Weakness Stated complaint: weakness Time Seen by Provider: 10/23/22 13:18 History of Present Illness HPI Narrative: Patient is a 67-year-old female with a history of uterine cancer status post hysterectomy, diabetes, hypertension, hepatitis status post biopsy this week presenting with abdominal pain. Patient states that she has been jaundiced for about the last month. She had a liver biopsy earlier this week and was told if she has any pain to come in for evaluation. States that she seemed to be doing okay until this morning when she developed severe right upper quadrant pain. Denies significant nausea. No vomiting. No fevers. No chest pain or shortness of breath. States that she had numerous episodes of diarrhea that had some maroon looking blood. States that they were pocket marker than normal. States that she is supposed to follow-up with [facility] regarding her liver problems but they have not called her back. Related Data Home Medications Medication Instructions Recorded Confirmed lisinopril 40 mg tablet 40 mg PO QAM 11/11/20 10/23/22 metformin 500 mg tablet 1,000 mg PO QAM 11/11/20 10/23/22 cholecalciferol (vitamin D3) 1,250 1,250 mcg PO WEEKLY 01/05/22 10/23/22 mcg (50,000 unit) tablet sertraline 25 mg tablet 25 mg PO QAM 01/05/22 10/23/22 insulin glargine 100 unit/mL (3 30 unit subcut BID 08/30/22 10/23/22 mL) subcutaneous pen (Basaglar KwikPen U-100 Insulin) insulin aspart U-100 100 unit/mL 14 unit subcut TID 10/17/22 10/23/22 (3 mL) subcutaneous pen (Novolog FlexPen U-100 Insulin aspart) Allergies Allergy/AdvReac Type Severity Reaction Status Date / Time empagliflozin Allergy Severe Rash Verified 10/25/22 13:00 [From Jardiance] Penicillins Allergy Severe Rash Verified 10/25/22 13:00 Review of Systems Review of Systems: All systems reviewed & are unremarkable except as noted in HPI and below [facility] Past Medical History Medical History Anxiety Aortic stenosis Arthritis Depression Dyslipidemia Gout Hyperglycemia Hypertension Insulin dependent type 2 diabetes mellitus Left knee DJD Left ventricular outflow obstruction Severe LVH with an EF greater than 75%, near cavity obliteration, and LV out for tract obstruction on echo in June 2014. Non-ST elevated myocardial infarction Supraventricular tachycardia Surgical History Surgical History History of benign breast biopsy (08/24/00) Right. History of hysterectomy for cancer (02/2022) History of tubal ligation Family History Family History Mother Ovarian cancer Father Esophageal cancer Sibling Diabetes mellitus Grandparent Diabetes mellitus Social History Social History Social History: Surrogate medical decision maker: Morteza Madera, spouse. Code status: Full code. Smoking status: Never smoker Alcohol intake: never Substance use: current Substance use type: does not use Lack of Transportation: No Lack of Food: Never True Current Housing: I Have Housing Concerned About Future Housing: No Difficulty Paying Gas/Electric Bills: No Difficulty Paying for Meds: No Currently Unemployed: No Education: High School Diploma/GED Difficulty w/ Childcare or Family Care: No Living arrangements: with family Additional living arrangements comments: Lives with spouse in [place]. Spiritual care concerns: No Exam Narrative: GENERAL: Jaundiced, uncomfortable appearing, pleasant and cooperative HEAD: Normocephalic, atraumatic. EYES: PERRLA and EOMI. + scleral icterus ENT: Nares clear, no rhinorrhea or epistaxis. Mucous membranes dry NECK: Supple. CHEST: Clear to auscultation. No respiratory distress. HEART: Regular rate and rhythm. no
[2022-10-23] MEDS: SODIUM CHLORIDE 0.9% IV 1,000 ML 999 ML IV CONT ×2 (14:35→18:03)
[2022-10-23] MEDS: HYDROmorphone HCL INJ (*CRX) 1 MG/ML SYR 0.5 MG IV PUSH ×2 (14:36→17:37)
--- NOTE | 2022-10-23 14:38 | PC.NURSE ---
Pt to CT scan via stretcher at this time, fluids infusing.
[2022-10-23 14:57] LABS: Prothrombin Time 13.8 Seconds (11.1-14.7)
[2022-10-23 14:58] LABS: Partial Thromboplastin Time 31.8 SECONDS (22.3-36.8)
[2022-10-23] MEDS: SODIUM CHLORIDE 0.9% IV 1,000 ML 150 ML IV CONT (18:03)
--- NOTE | 2022-10-23 20:08 | ADMGEN ---
This patient, Angelita Madera, was admitted to IMU Room 200-01. Patient/family oriented to hospital policies and general routines including ID bracelet, bed and alarms, visiting hours, pain management, procedures, bathroom and other care routines, personal items, smoking policy, room service/diet, and visiting hours. Information on how to activate the Rapid Response Team has been discussed. Patient/Family are encouraged to report perceived risks to care and to ask questions if they do not understand what they are told or what they should do.
--- NOTE | 2022-10-23 23:27 | PM.IMHP ---
H&P: HPI History of Present Illness Date/Time: 10/23/22 19:45 Chief Complaint: Weakness and abdominal pain. Narrative: This is a very pleasant 67-year-old female with insulin dependent type 2 diabetes, hypertension, hyperlipidemia, aortic stenosis, severe LVH with left ventricular outflow tract obstruction, uterine cancer status post hysterectomy, and ongoing issues with jaundice and transaminitis status post recent liver biopsy on 10/18/2022 who presented to the emergency department for evaluation of weakness and abdominal pain. The patient provides the following history. She is known to myself and the hospitalist service from a hospitalization in August 2022 at which time she was admitted with supraventricular tachycardia. At that time she had mild AST and ALT elevation with a large increase in alkaline phosphatase. She was seen in consultation by Dr. Candelaria and ultrasound and MRCP findings were nonspecific. Hepatitis panel was negative. He has been following her in the office since that time. Unfortunately her LFTs have trended upwards and she has developed pretty significant pruritus and jaundice for which she is taking cholestyramine. 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 Her Trulicity, allopurinol, and atorvastatin have been placed on hold indefinitely. She was referred to Dr. Shanks, hepatology specialist affiliated with [facility], but has yet to have an appointment. In any regard, this morning she got up and felt the need to have a bowel movement. She reports straining to have the bowel movement and she reports that it was very light rios in color admixed with dark maroon. She has an external hemorrhoid which she is whom is a started to bleed due to her straining. At that time she began to feel weak and lightheaded and felt as though she was going to pass out. Additionally she complains of diffuse upper abdominal pain which is sharp and occasionally radiates through to the back. It is severe and she has not noticed any significant aggravating or alleviating factors. She has had some nausea but no vomiting. She continues to be jaundiced. She denies fever, cold and flu symptoms, chest pain, shortness a breath, hematemesis, melena, and dysuria. She was afebrile on arrival to the emergency department with soft blood pressures that have responded to IV fluids. Labs were significant for a WBC count of 10.1, hemoglobin 9.8, sodium 136, potassium 3.2, BUN 22, creatinine 0.90, total bilirubin 2.2, AST 178, ALT 112, alkaline phosphatase 1041, ammonia less than 9, lipase 16,132, lactic acid 1.4. CT of the abdomen and pelvis showed interval progression of intra and extrahepatic biliary ductal dilatation with suggestion of possible small obstructing soft tissue density mass near the ampulla, peripancreatic inflammatory stranding consistent with likely secondary acute interstitial pancreatitis, and minimal ascites. She is being admitted in this setting for further treatment and GI consultation. Review of Systems Review of Systems: Twelve systems were reviewed and are negative except for as per HPI. [facility] Past Medical History Medical History Anxiety Aortic stenosis Arthritis Depression Dyslipidemia Gout Hyperglycemia Hypertension Insulin dependent type 2 diabetes mellitus Left knee DJD Left ventricular outflow obstruction Severe LVH with an EF greater than 75%, near cavity obliteration, and LV out for tract obstruction on echo in June 2014. Non-ST elevated myocardial infarction Supraventricular tachycardia Surgical History Surgical History History of benign breast biopsy (08/24/00) Right. History of hysterectomy for cancer (02/2022) History of tubal ligation Family History Family History Moth
[2022-10-24] VITALS (18 sets, daily range): BP systolic 85–130; BP diastolic 30–59; PULSE 61–84; RESP 16–18; TEMP 36.2–36.9; O2SAT 94–99
[2022-10-24] LABS: Hematocrit 26.7 % (37.0-47.0); Hemoglobin 8.7 g/dL (12.0-15.0)
[2022-10-24 00:16] LABS: Anion Gap 9 mmol/L (8-16); Blood Urea Nitrogen 20 mg/dL (7-17); Calcium 7.9 mg/dL (8.4-10.2); Carbon Dioxide 20 mmol/L (22-30); Chloride 108 mmol/L (98-107); Estimated Glomerular Filt Rate > 60; Glucose 91 mg/dL (65-110); Magnesium 1.1 mg/dL (1.6-2.3); Potassium 3.2 mmol/L (3.4-5.0); Sodium 137 mmol/L (137-145)
[2022-10-24] MEDS: KCL 20 MEQ/SW 100 ML 100 ML 50 MEQ IVPB (00:21)
[2022-10-24] MEDS: MAGNESIUM SULFATE 3GM/D5W100ML 3 GM/100 ML BAG IVPB (00:45)
[2022-10-24] MEDS: LACTATED RINGERS 1,000 ML 150 ML IV CONT ×2 (00:45→06:12)
[2022-10-24] MEDS: HYDROmorphone HCL INJ (*CRX) 1 MG/ML SYR 0.5 MG IV PUSH ×2 (00:52→20:24)
[2022-10-24 05:33] LABS: Basophils Absolute Auto 0.1 K/mm3 (0.0-0.1); Basophils Percent Auto 1.1 % (0.2-1.2); Eosinophils Absolute Auto 0.2 K/mm3 (0-0.3); Hematocrit 26.8 % (37.0-47.0); Hemoglobin 8.7 g/dL (12.0-15.0); Immature Granulocyte Absolute 0.06 K/mm3 (0.00-0.031); Immature Granulocyte Percent A 0.7 % (0-0.5); Lymphocytes Absolute Auto 0.97 K/mm3 (0.9-3.2); Lymphocytes Percent Auto 10.8 % (18.3-44.2); Mean Corpuscular HGB Conc 32.5 g/dl (32-36); Mean Corpuscular Hemoglobin 31.5 pg (26-34); Mean Corpuscular Volume 97.1 fl (80-100); Monocytes Percent Auto 11.1 % (2.6-8.5); Neutrophils Absolute Auto 6.7 K/mm3 (1.3-6.7); Neutrophils Percent Auto 74.3 % (45.5-73.1); Platelet Count Result 185 k/mm3 (150-375); Red Blood Count 2.76 M/mm3 (4.2-5.4)
[2022-10-24 05:44] LABS: Alanine Aminotransferase 98 U/L (6-35); Albumin Level 2.8 g/dL (3.5-5.1); Alkaline Phosphatase 942 U/L (38-126); Anion Gap 10 mmol/L (8-16); Aspartate Amino Transferase 161 U/L (14-36); Bilirubin,Total 20.6 mg/dL (0.2-1.3); Blood Urea Nitrogen 21 mg/dL (7-17); Calcium 7.9 mg/dL (8.4-10.2); Carbon Dioxide 20 mmol/L (22-30); Chloride 107 mmol/L (98-107); Estimated Glomerular Filt Rate > 60; Glucose 100 mg/dL (65-110); Lipase 720 U/L (23-300); Potassium 3.4 mmol/L (3.4-5.0); Sodium 137 mmol/L (137-145)
[2022-10-24] MEDS: POTASSIUM CHLORIDE 20 MEQ ER TABLET 40 MEQ PO (10:08)
[2022-10-24 11:54] LABS: Glucose Point of Care 114 mg/dl (65-105)
[2022-10-24 12:44] LABS: Hematocrit 28.4 % (37.0-47.0); Hemoglobin 9.1 g/dL (12.0-15.0)
--- NOTE | 2022-10-24 14:55 | PM.IMPN ---
Progress Note: A&P Assessment and Plan (1) Pancreatitis: Code(s): K85.90 - Acute pancreatitis without necrosis or infection, unspecified Status: Acute Assessment and Plan: Patient presents to the ED for evaluation abdominal pain and rectal bleeding. Lipase was 16K. LFTs were all elevated with a bilirubin of 22. CT of the abdomen and pelvis shows interval progression of intra and extrahepatic biliary ductal dilatation with suggestion of possible small obstructing soft tissue density mass near the ampulla she also had peripancreatic inflammation with stranding consistent with secondary acute interstitial pancreatitis. Gallbladder remains dilated but without evidence of wall thickening or myriam cholecystic inflammatory stranding to suggest acute cholecystitis. No evident calcified gallstones. She may have focal narrowing at the ampulla related to stricture mass that was complicated by either a passed gallstone or sludge. Patient still with abdominal pain but liver enzymes are trending downward. Lipase is now 720. GI has been consulted. Patient will need ERCP with possible biopsy. Appreciate GI input (2) Cholestatic hepatitis: Code(s): K75.89 - Other specified inflammatory liver diseases Status: Acute Assessment and Plan: Patient with chronic hyperbilirubinemia with bili of 22 on admission. Alk-phos was 1041. AST and ALT were mildly elevated. All levels are trending down today. Fractionation of the bilirubin is about 50% direct and 50% indirect. Liver biopsy on 10/18/2022 showed cholestatic hepatitis. MRCP in August shows mild intrahepatic and extrahepatic biliary duct dilatation with gallbladder distention could no obstructing stone or mass noted. Patient is scheduled to follow-up with GI in [place]. Will check CA 19-9. (3) Bloody stool: Code(s): K92.1 - Melena Status: Acute Assessment and Plan: Patient on the morning of admission was straining to have a bowel movement and passed light rios colored stool admixed with dark maroon blood. She does have hemorrhoids. She did pass gas earlier today and noted small amount of bright red blood when wiping but no stool was passed. Baseline hemoglobin is 10-12 range. On presentation she was 9.8 hemoglobin has remained stable in the 8-9 range since admission. Will trend hemoglobin. She had a colonoscopy in November 2020 which was normal and no mention of hemorrhoids. GI consulted. Continue monitor H&H. (4) Hypokalemia: Code(s): E87.6 - Hypokalemia Status: Acute Assessment and Plan: Potassium mildly low on admission. She is not on diuretics. Potassium was replaced. Potassium is 3.4 so will replace again. Magnesium is 2.0. Follow (5) Hypertension: Code(s): I10 - Essential (primary) hypertension Status: Acute Assessment and Plan: Patient's blood pressure was reviewed on 10/24 Blood pressure soft at times. Toprol-XL and lisinopril on hold. Will continue to monitor (6) Insulin dependent type 2 diabetes mellitus: Code(s): E11.9 - Type 2 diabetes mellitus without complications; Z79.4 - long term (current) use of insulin Status: Acute Assessment and Plan: A1c >14. The patient's blood glucose was reviewed on 10/24 Glucose elevated at times. Continue AccuCheks covering with sliding scale. Hypoglycemia protocol available as needed. Home meds on hold while NPO. Plan DVT prophylaxis -SCDs Code status -full Subjective Date/time seen: 10/24/22 14:55 Interval history: 67yo female with cholestatic hepatitis, jaundice, DM, , severe LVH with LV outflow tract and DM here for weakness and abdominal pain. Patient having increasing abdominal pain the right upper quadrant. No bowel movement but passing flatus. No nausea or vomiting. No chest pain or shortness of breath. She did pass gas today and noted a small amount of bright red blood on the tissue.
--- NOTE | 2022-10-24 15:21 | WPDGICN ---
Assessment and Plan Assessment and plan (1) Jaundice: Code(s): R17 - Unspecified jaundice Status: Acute Assessment and Plan: Patient with obstructive jaundice. Transaminases have decreased but bilirubin remains elevated. CT scan now suggest biliary obstruction with question of a head at the head of the pancreas. Plan is for ERCP and attempt to clarify this with ERCP but also with possible biliary stent. Will plan to proceed with this on Monday for at all possible. (2) Pancreatitis: Code(s): K85.90 - Acute pancreatitis without necrosis or infection, unspecified Status: Acute Assessment and Plan: Patient found to have markedly elevated lipase at the time of admission. CT scan imaging suggest is interstitial pancreatitis. Likely related to the lesion now identified at the head of the pancreas. (3) Abnormal CT scan: Code(s): R93.89 - Abnormal findings on diagnostic imaging of other specified body structures Status: Acute Assessment and Plan: CT scan imaging suggests lesion near the ampulla of the pancreas this will be evaluated at time ERCP. (4) Insulin dependent type 2 diabetes mellitus: Code(s): E11.9 - Type 2 diabetes mellitus without complications; Z79.4 - skilled nursing (current) use of insulin Status: Acute GI Consult Note Consult date/time: 10/24/22 15:21 Reason for consult: Obstructive Jaundice. HPI: Angelita Madera is a 67 year old female I am asked to see because of obstructive jaundice. Patient initially presented the hospital 2 months ago with urinary tract infection. She had underlying diabetes. Was hospitalized with significant infection. Noted to have a mild elevation of liver function tests during that admission. Ultrasound and MRCP revealed mild nonspecific biliary dilatation. Patient ultimately was discharged was seen in follow-up with initial decline and jaundice that recurred. After initially improving over the last month has gradually been increasing. Follow-up testing including CT scan and MRCP revealed no masses or gallstones. Mild nonspecific jaundice was noted. Patient underwent extensive outpatient workup including laboratory testing with no specific findings. Over the weekend she began to notice light-colored stools. And on passing a few stools notice blood tinge. For this reason presented the emergency room was admitted the hospital. Follow-up CT scan now reveals biliary dilatation with a small suspicion of a mass at the head of the pancreas. Patient denies a fever. She does have mid epigastric pain. At the time of admission was felt to have pancreatitis with markedly elevated lipase. Today the lipase is decreased to 720. Patient has changed her diabetic medications on suspicion this may be contributing to her elevated LFTs. Review of Systems Review of Systems: Review of systems noncontributory. 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 Non-ST elevated myocardial infarction Supraventricular tachycardia Surgical History Surgical History History of benign breast biopsy (08/24/00) Right. History of hysterectomy for cancer (02/2022) History of tubal ligation Family History Family History Mother Ovarian cancer Father Esophageal cancer Sibling Diabetes mellitus Grandparent Diabetes mellitus Social History Social History Social History: Surrogate medical decision maker: Morteza Madera
[2022-10-24] MEDS: LACTATED RINGERS 1,000 ML 100 ML IV CONT (15:32)
[2022-10-24 17:30] LABS: Hematocrit 28.7 % (37.0-47.0); Hemoglobin 9.4 g/dL (12.0-15.0)
[2022-10-24 18:29] LABS: Glucose Point of Care 103 mg/dl (65-105)
[2022-10-25] VITALS (27 sets, daily range): BP systolic 112–165; BP diastolic 48–95; PULSE 68–126; RESP 16–28; TEMP 35.6–36.6; O2SAT 93–100
[2022-10-25 00:44] LABS: Hematocrit 29.1 % (37.0-47.0); Hemoglobin 9.4 g/dL (12.0-15.0)
[2022-10-25] MEDS: LACTATED RINGERS 1,000 ML 100 ML IV CONT ×2 (04:22→18:01)
[2022-10-25 05:09] LABS: Basophils Absolute Auto 0.1 K/mm3 (0.0-0.1); Basophils Percent Auto 1.4 % (0.2-1.2); Eosinophils Absolute Auto 0.2 K/mm3 (0-0.3); Eosinophils Percent Auto 2.2 % (0-4.4); Hematocrit 28.5 % (37.0-47.0); Hemoglobin 9.4 g/dL (12.0-15.0); Immature Granulocyte Absolute 0.07 K/mm3 (0.00-0.031); Immature Granulocyte Percent A 0.8 % (0-0.5); Immature Platelet Fraction Pct 14.8 % (0.9-11.2); Lymphocytes Absolute Auto 0.92 K/mm3 (0.9-3.2); Lymphocytes Percent Auto 10.1 % (18.3-44.2); Mean Corpuscular Hemoglobin 31.6 pg (26-34); Mean Platelet Volume 13.5 fl (7.4-10.4); Monocytes Absolute Auto 1.1 K/mm3 (0.1-0.6); Monocytes Percent Auto 12.1 % (2.6-8.5); Neutrophils Absolute Auto 6.7 K/mm3 (1.3-6.7); Neutrophils Percent Auto 73.4 % (45.5-73.1); Platelet Count Result 212 k/mm3 (150-375); Red Blood Count 2.97 M/mm3 (4.2-5.4); Red Cell Distribution Width 20.7 % (11.5-14.5); White Blood Count 9.1 K/mm3 (4.5-10.0)
[2022-10-25 05:20] LABS: Alanine Aminotransferase 97 U/L (6-35); Albumin Level 3.1 g/dL (3.5-5.1); Alkaline Phosphatase 1184 U/L (38-126); Anion Gap 10 mmol/L (8-16); Aspartate Amino Transferase 159 U/L (14-36); Bilirubin Direct 11.9 mg/dL (0-0.3); Bilirubin,Total 22.3 mg/dL (0.2-1.3); Blood Urea Nitrogen 17 mg/dL (7-17); Calcium 8.9 mg/dL (8.4-10.2); Carbon Dioxide 22 mmol/L (22-30); Chloride 106 mmol/L (98-107); Estimated Glomerular Filt Rate > 60; Glucose 107 mg/dL (65-110); Lipase 180 U/L (23-300); Magnesium 1.8 mg/dL (1.6-2.3); Phosphorus 3.5 mg/dL (2.5-4.5); Potassium 3.8 mmol/L (3.4-5.0); Sodium 138 mmol/L (137-145)
[2022-10-25 12:28] LABS: Glucose Point of Care 104 mg/dl (65-105)
--- NOTE | 2022-10-25 12:48 | PC.NURSE ---
to GI lab for ERCP via stretcher accompanied by RNs- IVF stopped at this time by GI lab -
--- NOTE | 2022-10-25 13:08 | WPDANESEPPF ---
Anes - Initial Pre Proc Eval Procedure: Operation Date: 10/25/22 13:45 Proposed Procedures p Endoscopic Retro Cholangiopancreatogram - Dov Candelaria MD Date/Time: 10/25/22 13:08 Surgeon: Nga Troncoso MD Pre Op Diagnosis: Pancreatitis Patient Data Age: 67 Gender: F Height: 1.5 m Weight: 97.9 kg Last Vital Signs Temp 97.1 F L 10/25/22 13:03 Pulse 78 10/25/22 13:03 Resp 18 10/25/22 13:03 BP 119/51 L 10/25/22 13:03 Pulse Ox 100 10/25/22 13:03 O2 Del Method Room Air 10/25/22 13:03 Allergies Allergy/AdvReac Type Severity Reaction Status Date / Time empagliflozin Allergy Severe Rash Verified 10/25/22 13:00 [From Jardiance] Penicillins Allergy Severe Rash Verified 10/25/22 13:00 Home Medications Medication Instructions Recorded Confirmed Type lisinopril 40 mg tablet 40 mg PO QAM 11/11/20 10/23/22 History metformin 500 mg tablet 1,000 mg PO QAM 11/11/20 10/23/22 History cholecalciferol (vitamin D3) 1,250 1,250 mcg PO WEEKLY 01/05/22 10/23/22 History mcg (50,000 unit) tablet sertraline 25 mg tablet 25 mg PO QAM 01/05/22 10/23/22 History metoprolol succinate 25 mg 25 mg PO QAM #30 tabs 08/14/22 10/23/22 Rx tablet,extended release 24 hr (Toprol XL) glucagon 1 mg/0.2 mL subcutaneous 1 mg (0.2 mL) subcut ONCE #1 mL 08/17/22 10/23/22 Rx auto-injector (Gvoke HypoPen 2-Pack) glucose 4 gram chewable tablet 16 g PO Q15M PRN hypoglycemia #180 08/17/22 10/23/22 Rx tabs blood-glucose sensor (Dexcom G7 #9 ea 08/30/22 10/23/22 Rx Sensor device) insulin glargine 100 unit/mL (3 30 unit subcut BID 08/30/22 10/23/22 History mL) subcutaneous pen (Basaglar KwikPen U-100 Insulin) insulin aspart U-100 100 unit/mL 14 unit subcut TID 10/17/22 10/23/22 History (3 mL) subcutaneous pen (Novolog FlexPen U-100 Insulin aspart) Laboratory Tests 10/24/22 10/24/22 10/25/22 17:12 18:21 00:23 WBC RBC Hgb 9.4 L g/dL 9.4 L g/dL (12.0-15.0) (12.0-15.0) Hct 28.7 L % 29.1 L % (37.0-47.0) (37.0-47.0) MCV MCH MCHC RDW Plt Count MPV Immature Gran % (Auto) Neut % (Auto) Lymph % (Auto) [place] % (Auto) Eos % (Auto) Baso % (Auto) Lymph # (Auto) [place] # (Auto) Eos # (Auto) Baso # (Auto) Abs Immat Gran (auto) Absolute Neuts (auto) Absolute Nucleated RBC Nucleated RBC % % Immature Plt Fraction Sodium Potassium Chloride Carbon Dioxide Anion Gap BUN Creatinine Estim Creat Clear Calc Estimated GFR Glucose POC Capillary Glucose 103 mg/dl (65-105) Calcium Phosphorus Magnesium Total Bilirubin Direct Bilirubin AST ALT Alkaline Phosphatase Total Protein Albumin Lipase 10/25/22 10/25/22 04:27 11:51 WBC 9.1 K/mm3 (4.5-10.0) RBC 2.97 L M/mm3 (4.2-5.4) Hgb 9.4 L g/dL (12.0-15.0) Hct 28.5 L % (37.0-47.0) MCV 96.0 fl (80-100) MCH 31.6 pg (26-34) MCHC 33.0 g/dl (32-36) RDW 20.7 H % (11.5-14.5) Plt Count 212 k/mm3 (150-375) MPV 13.5 H fl (7.4-10.4) Immature Gran % (Auto) 0.8 H % (0-0.5) Neut % (Auto) 73.4 H % (45.5-73.1) Lymph % (Auto) 10.1 L % (18.3-44.2) [place] % (Auto) 12.1 H % (2.6-8.5) Eos % (Auto) 2.2 % (0-4.4) Baso % (Auto) 1.4 H % (0.2-1.2) Lymph # (Auto) 0.92 K/mm3 (0.9-3.2) [place] # (Auto) 1.1 H K/mm3 (0.1-0.6) Eos # (Auto) 0.2 K/mm3 (0
[2022-10-25 13:09] LABS: Glucose Point of Care 105 mg/dl (65-105)
[2022-10-25] MEDS: LACTATED RINGERS 1,000 ML 150 ML IV CONT (13:13)
--- NOTE | 2022-10-25 13:55 | PM.IMPN ---
Progress Note: A&P Assessment and Plan (1) Pancreatitis: Code(s): K85.90 - Acute pancreatitis without necrosis or infection, unspecified Status: Acute Assessment and Plan: Patient presents to the ED for evaluation abdominal pain and rectal bleeding. Lipase was 16K. LFTs were all elevated with a bilirubin of 22. CT of the abdomen and pelvis shows interval progression of intra and extrahepatic biliary ductal dilatation with suggestion of possible small obstructing soft tissue density mass near the ampulla she also had peripancreatic inflammation with stranding consistent with secondary acute interstitial pancreatitis. Gallbladder remains dilated but without evidence of wall thickening or myriam cholecystic inflammatory stranding to suggest acute cholecystitis. No evident calcified gallstones. Lipase normal now. Abdominal pain better as pancreatitis improves. Cholestatic hepatitis with persistently elevated liver enzymes. GI was consulted with plan for ERCP with possible stent/biopsy. Appreciate GI input (2) Cholestatic hepatitis: Code(s): K75.89 - Other specified inflammatory liver diseases Status: Acute Assessment and Plan: Patient with chronic hyperbilirubinemia with bili of 22 on admission. Alk-phos was 1041. AST and ALT were mildly elevated. Fractionation of the bilirubin is about 50% direct and 50% indirect. Liver biopsy on 10/18/2022 showed cholestatic hepatitis. 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 (3) Bloody stool: Code(s): K92.1 - Melena Status: Acute Assessment and Plan: Patient on the morning of admission was straining to have a bowel movement and passed light rios colored stool admixed with dark maroon blood. She does have hemorrhoids. Baseline hemoglobin is 10-12 range. On presentation, Hgb 9.8. Hgb has remained stable in the 8-9 range since admission. She had a colonoscopy in November 2020 which was normal and no mention of hemorrhoids. GI consulted. Continue monitor H&H. (4) Hypokalemia: Code(s): E87.6 - Hypokalemia Status: Acute Assessment and Plan: Potassium mildly low on admission. She is not on diuretics. Potassium was replaced. Potassium is 3.8 so will monitor. Follow (5) Hypertension: Code(s): I10 - Essential (primary) hypertension Status: Acute Assessment and Plan: Patient's blood pressure was reviewed on 10/25 Blood pressure soft at times. Toprol-XL and lisinopril on hold. Will continue to monitor (6) Insulin dependent type 2 diabetes mellitus: Code(s): E11.9 - Type 2 diabetes mellitus without complications; Z79.4 - halfway (current) use of insulin Status: Acute Assessment and Plan: A1c >14. The patient's blood glucose was reviewed on 10/25 Glucose well controlled. Continue AccuCheks covering with sliding scale. Hypoglycemia protocol available as needed. Home meds on hold while NPO. Plan DVT prophylaxis -SCDs Code status -full Subjective Date/time seen: 10/25/22 13:55 Interval history: 67yo female with cholestatic hepatitis, jaundice, DM, , severe LVH with LV outflow tract and DM here for weakness and abdominal pain. Patient complained headache today. No nausea or vomiting. She has not eaten today; she is NPO for a procedure. This is uncommon for her to have headaches but she believes that the headaches is related to not having caffeine. No chest pain or shortness of breath. Abdominal pain is better. Exam Narrative: AF 97.1 119/51 78 18 100% ra Gen - NARD Chest - lungs clear anteriorly. CV - RRR S1/S2. Tele showing no significant dysrhythmias Abd - Soft, obese, decreased tenderness in the RUQ. Ext - No pedal edema Psych - Nml mood and affect Skin - jaundice Objective Data Vital Signs Vital Signs: Vital Signs - 24 hr 10/24/22 14:00 10/24/22 16:00 10/24/22 19:03 Temperature 97.7 F 98.4 F Pulse Rate 70 71 73 Respiratory R
[2022-10-25] MEDS: ALBUTEROL SULFATE NEB 2.5 MG/3 ML INH INHALATION (15:21)
[2022-10-25 15:39] LABS: Glucose Point of Care 134 mg/dl (65-105)
[2022-10-25] MEDS: LORazepam INJ (*CRX) 2 MG/ML VIAL 0.5 MG IV PUSH (15:42)
[2022-10-25] MEDS: levoFLOXacin 500 MG/D5W 100 ML 500 MG/100 ML BAG 100 MG IVPB (16:55)
--- NOTE | 2022-10-25 17:02 | PC.NURSE ---
1620-pt returned to room post procedure- O2 on 2l/nc- pt drowsy- answers questions then back to sleep VSS monitor on SR 80's- willl continue to monitor
[2022-10-25 18:19] LABS: Glucose Point of Care 186 mg/dl (65-105)
[2022-10-26] VITALS (33 sets, daily range): BP systolic 91–112; BP diastolic 35–69; PULSE 58–75; RESP 16–18; TEMP 36.2–36.4; O2SAT 95–100
[2022-10-26 00:30] LABS: Glucose Point of Care 193 mg/dl (65-105)
[2022-10-26 05:23] LABS: Basophils Percent Auto 0.2 % (0.2-1.2); Hematocrit 28.4 % (37.0-47.0); Immature Granulocyte Absolute 0.06 K/mm3 (0.00-0.031); Immature Granulocyte Percent A 0.7 % (0-0.5); Immature Platelet Fraction Pct 15.5 % (0.9-11.2); Lymphocytes Absolute Auto 0.52 K/mm3 (0.9-3.2); Lymphocytes Percent Auto 6.4 % (18.3-44.2); Mean Corpuscular HGB Conc 31.7 g/dl (32-36); Mean Corpuscular Hemoglobin 31.9 pg (26-34); Mean Corpuscular Volume 100.7 fl (80-100); Mean Platelet Volume 13.6 fl (7.4-10.4); Monocytes Absolute Auto 0.5 K/mm3 (0.1-0.6); Monocytes Percent Auto 6.1 % (2.6-8.5); Neutrophils Absolute Auto 7.1 K/mm3 (1.3-6.7); Neutrophils Percent Auto 86.6 % (45.5-73.1); Platelet Count Result 198 k/mm3 (150-375); Red Blood Count 2.82 M/mm3 (4.2-5.4); White Blood Count 8.2 K/mm3 (4.5-10.0)
[2022-10-26 05:24] LABS: Alanine Aminotransferase 85 U/L (6-35); Alkaline Phosphatase 1081 U/L (38-126); Anion Gap 8 mmol/L (8-16); Aspartate Amino Transferase 121 U/L (14-36); Bilirubin,Total 19.6 mg/dL (0.2-1.3); Blood Urea Nitrogen 18 mg/dL (7-17); Calcium 9.1 mg/dL (8.4-10.2); Carbon Dioxide 22 mmol/L (22-30); Chloride 105 mmol/L (98-107); Estimated Glomerular Filt Rate > 60; Glucose 182 mg/dL (65-110); Lipase 85 U/L (23-300); Magnesium 1.7 mg/dL (1.6-2.3); Potassium 4.7 mmol/L (3.4-5.0); Sodium 135 mmol/L (137-145)
--- NOTE | 2022-10-26 07:59 | WPDGIPROGNO ---
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 Unable to place biliary stent yesterday. Patient will need transfer to tertiary care center for biliary decompression. Hopefully stent can be placed if not external PTC drainage may be necessary. Ultimately workup for possible surgical resection of this lesion which would need to be performed at a tertiary care center. CA 19-9 level is pending. Await referral to tertiary care for biliary decompression. (2) Jaundice: Code(s): R17 - Unspecified jaundice Status: Acute Assessment and Plan: Patient remains quite jaundice. 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 Subjective Date/time seen: 10/26/22 07:59 Interval history: Patient alert comfortable this morning. Patient remains afebrile. Denies significant abdominal pain present. Remains with significant jaundice. Feels weak in general. ERCP yesterday revealed normal pancreatic duct. Unable to place stent to the bile duct. Apparently she has a visual small tumor at the ampulla Vater that is ulcerated. No biopsies taken for fear of making stent placement more difficult. Review of Systems Review of Systems: Review of systems noncontributory. Exam Narrative: Physical exam reveals patient be alert. Vital signs stable. HEENT exam reveals significant icterus. Lungs are clear. Heart without murmur. Abdomen is obese. Bowel sounds are present soft nontender. No palpable masses. Objective Data Vital Signs Vital Signs: Vital Signs - 24 hr 10/25/22 08:00 10/25/22 08:30 10/25/22 08:30 Temperature 97.8 F Pulse Rate 78 72 Respiratory Rate 22 H Blood Pressure 131/60 Pulse Oximetry 98 Oxygen Delivery Room Air Oxygen Flow Rate 10/25/22 10:00 10/25/22 12:16 10/25/22 12:16 Temperature Pulse Rate 74 74 Respiratory Rate Blood Pressure Pulse Oximetry Oxygen Delivery Room Air Oxygen Flow Rate 10/25/22 12:00 10/25/22 13:03 10/25/22 15:04 Temperature 97.4 F L 97.1 F L 97 F L Pulse Rate 75 78 125 H Respiratory Rate 20 18 19 Blood Pressure 133/58 L 119/51 L 165/89 H Pulse Oximetry 94 100 93 Oxygen Delivery Room Air Simple Face Mask Oxygen Flow Rate 15 10/25/22 15:14 10/25/22 15:24 10/25/22 15:34 Temperature Pulse Rate 125 H 125 H 124 H Respiratory Rate 24 H 28 H 26 H Blood Pressure 158/85 H 154/95 H 118/62 Pulse Oximetry 94 99 95 Oxygen Delivery Simple Face Mask Nasal Cannula Nasal Cannula Oxygen Flow Rate 15 10 5 10/25/22 15:44 10/25/22 15:54 10/25/22 16:04 Temperature Pulse Rate 120 H 118 H 117 H Respiratory Rate 24 H 22 H 26 H Blood Pressure 127/76 132/78 129/78 Pulse Oximetry 95 95 95 Oxygen Delivery Nasal Cannula Nasal Cannula Nasal Cannula Oxygen Flow Rate 5 2 2 10/25/22 15:21 10/25/22 15:26 10/25/22 16:00 Temperature 97.6 F Pulse Rate 125 H 126 H 87 Respiratory Rate 27 H 26 H 16 Blood Pressure 131/61 Pulse Oximetry 94 Oxygen Delivery Oxygen Flow Rate 10/25/22 16:45 10/25/22 16:45 10/25/22 18:00 Temperature Pulse Rate 81 81 Respiratory Rate 16 Blood Pressure Pulse Oximetry 96 Oxygen Delivery Nasal Cannula Oxygen Flow Rate 2 10/25/22 18:15 10/25/22 19:54 10/25/22 20:00 Temperature 97.1 F L Pulse Rate 78 79 78 Respiratory Rate 16 Blood Pressure 126/65 Pulse Oximetry 98 Oxygen Delivery Oxygen Flow Rate 10/25/22 20:00 10/25/22 21:41 10/25/22 23:28 Temperature 97.6 F Pulse Rate 78 72 68 Respiratory Rate 16 16 Blood Pressure 112/65 Pulse Oximetry 98 95 Oxygen Delivery Room Air Oxygen Flow Rate 10/26/22 00:00 10/26/22 00:00 10/26/22
--- NOTE | 2022-10-26 08:28 | PM.IMPN ---
Progress Note: A&P Assessment and Plan (1) Pancreatitis: Code(s): K85.90 - Acute pancreatitis without necrosis or infection, unspecified Status: Acute Assessment and Plan: Patient presents to the ED for evaluation abdominal pain and rectal bleeding. Lipase was 16K. LFTs were all elevated with a bilirubin of 22. CT of the abdomen and pelvis shows interval progression of intra and extrahepatic biliary ductal dilatation with suggestion of possible small obstructing soft tissue density mass near the ampulla she also had peripancreatic inflammation with stranding consistent with secondary acute interstitial pancreatitis. Gallbladder remains dilated but without evidence of wall thickening or myriam cholecystic inflammatory stranding to suggest acute cholecystitis. No evident calcified gallstones. Lipase normal now. Abdominal pain better as pancreatitis improves. Cholestatic hepatitis with persistently elevated liver enzymes. GI was consulted with plan for ERCP with possible stent/biopsy. Appreciate GI input 10/26: ERCP attempted, unable to cannulate with concern for tumor, transfer pending to tertiary care center for further care (2) Cholestatic hepatitis: Code(s): K75.89 - Other specified inflammatory liver diseases Status: Acute Assessment and Plan: Patient with chronic hyperbilirubinemia with bili of 22 on admission. Alk-phos was 1041. AST and ALT were mildly elevated. Fractionation of the bilirubin is about 50% direct and 50% indirect. Liver biopsy on 10/18/2022 showed cholestatic hepatitis. 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 (3) Bloody stool: Code(s): K92.1 - Melena Status: Acute Assessment and Plan: Patient on the morning of admission was straining to have a bowel movement and passed light rios colored stool admixed with dark maroon blood. She does have hemorrhoids. Baseline hemoglobin is 10-12 range. On presentation, Hgb 9.8. Hgb has remained stable in the 8-9 range since admission. She had a colonoscopy in November 2020 which was normal and no mention of hemorrhoids. GI consulted. Continue monitor H&H. (4) Hypokalemia: Code(s): E87.6 - Hypokalemia Status: Acute Assessment and Plan: Resolved, monitor (5) Hypertension: Code(s): I10 - Essential (primary) hypertension Status: Acute Assessment and Plan: Patient's blood pressure was reviewed on 10/26 Blood pressure soft at times. Toprol-XL and lisinopril on hold. Will continue to monitor (6) Insulin dependent type 2 diabetes mellitus: Code(s): E11.9 - Type 2 diabetes mellitus without complications; Z79.4 - [facility] (current) use of insulin Status: Acute Assessment and Plan: A1c >14. The patient's blood glucose was reviewed on 10/26 Glucose well controlled. Continue AccuCheks covering with sliding scale. Hypoglycemia protocol available as needed. Home meds on hold while NPO. Plan DVT prophylaxis -SCDs Code status -full Subjective Date/time seen: 10/26/22 08:28 Interval history: 67yo female with cholestatic hepatitis, jaundice, DM, , severe LVH with LV outflow tract and DM here for weakness and abdominal pain. No overnight events noted. No chest pain or shortness of breath. No nausea, vomiting or diarrhea. No fevers or chills. Review of Systems Review of Systems: 12 point review of systems was assessed and was negative except as noted in the HPI Exam Narrative: General: No acute distress, alert and oriented per baseline HEENT: Atraumatic, normocephalic, mucous membranes moist, icteric sclera CV: Regular rate and rhythm, S1, S2 Lungs: Clear to auscultation bilaterally, no rales or crackles noted, no wheezes, good air entry Abdomen: Soft, nontender, nondistended Extremities: Normal to inspection Skin: No rashes noted, no lesions or wounds seen, jaundiced Psych: Euthymic, normal affect Objective Data
[2022-10-26] MEDS: LACTATED RINGERS 1,000 ML 100 ML IV CONT ×2 (08:41→21:04)
[2022-10-26 12:37] LABS: Glucose Point of Care 189 mg/dl (65-105)
[2022-10-26 13:26] LABS: Appearance Urine Turbid (Clear); Bacteria Urine 2+ /hpf; Bilirubin Urine 3+ (Negative); Blood Urine Negative (Negative); Color Urine Dark Yellow (Yellow); Glucose Urine UA Negative (Negative); Ketones Urine Negative (Negative); Leukocyte Esterase Ur 2+ LEU/UL (Negative); Need Manual Microscopic Reviewed; Nitrate Urine Positive (Negative); Protein Urine Trace mg/dL (Negative); RBC Urine 21-50 /hpf (0-2); Specific Grav Ur 1.024 (1.001-1.035); Squamous Epithelial Cell Urine Many /hpf (Few); WBC Urine 21-50 /hpf; pH Urine 5.5 (5.0-9.0)
[2022-10-26 13:48] LABS: Add Urine Microscopic? YES
[2022-10-26 18:27] LABS: Glucose Point of Care 159 mg/dl (65-105)
[2022-10-27] VITALS (42 sets, daily range): BP systolic 102–132; BP diastolic 48–84; PULSE 54–93; RESP 14–20; TEMP 36.2–36.8; O2SAT 95–100
[2022-10-27 05:55] LABS: Basophils Absolute Auto 0.1 K/mm3 (0.0-0.1); Basophils Percent Auto 0.6 % (0.2-1.2); Eosinophils Absolute Auto 0.1 K/mm3 (0-0.3); Eosinophils Percent Auto 0.9 % (0-4.4); Hematocrit 30.3 % (37.0-47.0); Hemoglobin 9.6 g/dL (12.0-15.0); Immature Granulocyte Absolute 0.11 K/mm3 (0.00-0.031); Lymphocytes Absolute Auto 1.51 K/mm3 (0.9-3.2); Lymphocytes Percent Auto 14.3 % (18.3-44.2); Mean Corpuscular HGB Conc 31.7 g/dl (32-36); Mean Corpuscular Hemoglobin 31.4 pg (26-34); Mean Platelet Volume 13.2 fl (7.4-10.4); Monocytes Percent Auto 9.6 % (2.6-8.5); Neutrophils Absolute Auto 7.8 K/mm3 (1.3-6.7); Neutrophils Percent Auto 73.6 % (45.5-73.1); Platelet Count Result 238 k/mm3 (150-375); Red Blood Count 3.06 M/mm3 (4.2-5.4); Red Cell Distribution Width 20.4 % (11.5-14.5); White Blood Count 10.6 K/mm3 (4.5-10.0)
[2022-10-27 06:28] LABS: Alanine Aminotransferase 82 U/L (6-35); Albumin Level 3.1 g/dL (3.5-5.1); Alkaline Phosphatase 1106 U/L (38-126); Anion Gap 9 mmol/L (8-16); Aspartate Amino Transferase 155 U/L (14-36); Bilirubin,Total 20.5 mg/dL (0.2-1.3); Blood Urea Nitrogen 19 mg/dL (7-17); Calcium 9.3 mg/dL (8.4-10.2); Carbon Dioxide 25 mmol/L (22-30); Chloride 105 mmol/L (98-107); Estimated Glomerular Filt Rate > 60; Glucose 129 mg/dL (65-110); Lipase 403 U/L (23-300); Magnesium 1.7 mg/dL (1.6-2.3); Potassium 3.6 mmol/L (3.4-5.0); Sodium 139 mmol/L (137-145)
--- NOTE | 2022-10-27 08:25 | PM.IMPN ---
Progress Note: A&P Assessment and Plan (1) Pancreatitis: Code(s): K85.90 - Acute pancreatitis without necrosis or infection, unspecified Status: Acute Assessment and Plan: Patient presents to the ED for evaluation abdominal pain and rectal bleeding. Lipase was 16K. LFTs were all elevated with a bilirubin of 22. CT of the abdomen and pelvis shows interval progression of intra and extrahepatic biliary ductal dilatation with suggestion of possible small obstructing soft tissue density mass near the ampulla she also had peripancreatic inflammation with stranding consistent with secondary acute interstitial pancreatitis. Gallbladder remains dilated but without evidence of wall thickening or myriam cholecystic inflammatory stranding to suggest acute cholecystitis. No evident calcified gallstones. Lipase normal now. Abdominal pain better as pancreatitis improves. Cholestatic hepatitis with persistently elevated liver enzymes. GI was consulted with plan for ERCP with possible stent/biopsy. Appreciate GI input 10/26: ERCP attempted, unable to cannulate with concern for tumor, transfer pending to tertiary care center for further care 10/27: Transfer pending to [facility], accepting GI Dr Jennings, waiting list several days (2) Cholestatic hepatitis: Code(s): K75.89 - Other specified inflammatory liver diseases Status: Acute Assessment and Plan: Patient with chronic hyperbilirubinemia with bili of 22 on admission. Alk-phos was 1041. AST and ALT were mildly elevated. Fractionation of the bilirubin is about 50% direct and 50% indirect. Liver biopsy on 10/18/2022 showed cholestatic hepatitis. 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 (3) Bloody stool: Code(s): K92.1 - Melena Status: Acute Assessment and Plan: Patient on the morning of admission was straining to have a bowel movement and passed light rios colored stool admixed with dark maroon blood. She does have hemorrhoids. Baseline hemoglobin is 10-12 range. On presentation, Hgb 9.8. Hgb has remained stable in the 8-9 range since admission. She had a colonoscopy in November 2020 which was normal and no mention of hemorrhoids. GI consulted. Continue monitor H&H. (4) Hypokalemia: Code(s): E87.6 - Hypokalemia Status: Acute Assessment and Plan: Resolved, monitor (5) Hypertension: Code(s): I10 - Essential (primary) hypertension Status: Acute Assessment and Plan: Patient's blood pressure was reviewed on 10/27 Blood pressure soft at times. Toprol-XL and lisinopril on hold. Will continue to monitor (6) Insulin dependent type 2 diabetes mellitus: Code(s): E11.9 - Type 2 diabetes mellitus without complications; Z79.4 - [facility] living (current) use of insulin Status: Acute Assessment and Plan: A1c >14. The patient's blood glucose was reviewed on 10/27 Glucose well controlled. Continue AccuCheks covering with sliding scale. Hypoglycemia protocol available as needed. Home meds on hold while NPO. Plan DVT prophylaxis -SCDs Code status -full Subjective Date/time seen: 10/27/22 08:25 Interval history: 67yo female with cholestatic hepatitis, jaundice, DM, , severe LVH with LV outflow tract and DM here for weakness and abdominal pain. No overnight events noted. No chest pain or shortness of breath. No nausea, vomiting or diarrhea. No fevers or chills. Review of Systems Review of Systems: 12 point review of systems was assessed and was negative except as noted in the HPI Exam Narrative: General: No acute distress, alert and oriented per baseline HEENT: Atraumatic, normocephalic, mucous membranes moist, icteric sclera CV: Regular rate and rhythm, S1, S2 Lungs: Clear to auscultation bilaterally, no rales or crackles noted, no wheezes, good air entry Abdomen: Soft, nontender, nondistended Extremities: Normal to inspection Skin: No rashes noted, no lesions or
[2022-10-27] MEDS: LACTATED RINGERS 1,000 ML 100 ML IV CONT ×2 (08:26→15:09)
[2022-10-27 12:04] LABS: Glucose Point of Care 141 mg/dl (65-105)
--- NOTE | 2022-10-27 15:07 | WPDGIPROGNO ---
Progress Note: A&P Assessment and Plan (1) Jaundice: Code(s): R17 - Unspecified jaundice Status: Acute Assessment and Plan: Patient with obstructive jaundice. Appears to have mass at the ampulla Vater. Unable to have stent placed at our institution. Patient awaiting transfer to tertiary care center for endoscopic ultrasound possible stent placement. This is not feasible external drain may be necessary. If cancer confirmed which is suspected she may ultimately need resection. 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 Plan for transfer to tertiary care center for decompression of the biliary tree as well as possible ultimate Whipple's resection. (3) Insulin dependent type 2 diabetes mellitus: Code(s): E11.9 - Type 2 diabetes mellitus without complications; Z79.4 - [facility] (current) use of insulin Status: Acute (4) Morbid obesity with BMI of 50.0-59.9, adult: Code(s): E66.01 - Morbid (severe) obesity due to excess calories; Z68.43 - Body mass index [BMI] 50.0-59.9, adult Status: Acute Subjective Date/time seen: 10/27/22 15:07 Interval history: Patient relatively comfortable. She states her abdominal pain has resolved. Tolerating full liquid diet. Remains jaundiced. Anxious to be transferred. Review of Systems Review of Systems: Review of systems noncontributory. Exam Narrative: Physical exam reveals patient be alert. She is afebrile. HEENT exam reveals icterus. Lungs are clear. Heart without murmur. Abdomen is obese. Bowel sounds are present soft nontender with no organomegaly. Objective Data Vital Signs Vital Signs: Vital Signs - 24 hr 10/26/22 15:48 10/26/22 16:00 10/26/22 18:00 Temperature 97.5 F L Pulse Rate 65 63 69 Respiratory Rate 18 Blood Pressure 91/69 L Pulse Oximetry 97 Oxygen Delivery 10/26/22 16:00 10/26/22 19:52 10/26/22 20:00 Temperature 97.4 F L Pulse Rate 67 63 Respiratory Rate 16 Blood Pressure 95/67 L Pulse Oximetry 99 Oxygen Delivery Room Air 10/26/22 20:00 10/26/22 21:40 10/26/22 23:44 Temperature 97.3 F L Pulse Rate 63 64 62 Respiratory Rate 16 16 Blood Pressure 95/35 L Pulse Oximetry 99 100 Oxygen Delivery Room Air 10/26/22 23:51 10/26/22 23:51 10/27/22 02:00 Temperature Pulse Rate 64 64 68 Respiratory Rate 16 Blood Pressure Pulse Oximetry 100 Oxygen Delivery Room Air 10/27/22 04:00 10/27/22 04:00 10/27/22 04:00 Temperature 97.3 F L Pulse Rate 72 60 60 Respiratory Rate 18 18 Blood Pressure 102/84 Pulse Oximetry 95 95 Oxygen Delivery Room Air 10/27/22 06:00 10/26/22 19:09 10/26/22 19:22 Temperature Pulse Rate 68 64 64 Respiratory Rate Blood Pressure Pulse Oximetry Oxygen Delivery 10/26/22 19:50 10/26/22 20:15 10/26/22 20:36 Temperature Pulse Rate 65 62 65 Respiratory Rate Blood Pressure Pulse Oximetry Oxygen Delivery 10/26/22 20:54 10/26/22 21:03 10/26/22 21:20 Temperature Pulse Rate 63 62 64 Respiratory Rate Blood Pressure Pulse Oximetry Oxygen Delivery 10/26/22 21:38 10/26/22 22:04 10/26/22 22:16 Temperature Pulse Rate 75 65 60 Respiratory Rate Blood Pressure Pulse Oximetry Oxygen Delivery 10/26/22 22:45 10/26/22 23:00 10/26/22 23:25 Temperature Pulse Rate 60 59 L 65 Respiratory Rate Blood Pressure Pulse Oximetry Oxygen Delivery 10/26/22 23:36 10/26/22 23:59 10/27/22 00:24 Temperature Pulse Rate 63 68 59 L Respiratory Rate Blood Pressure Pulse Oximetry Oxygen Delivery 10/27/22 00:41 10/27/22 00:51 10/27/22 01:01 Temperature Pulse Rate 59 L 57 L 57 L Respiratory Rate Blood Pressure Pulse Oximetry Oxygen Delivery 10/27/22 01:18
[2022-10-27] MEDS: LORATADINE 10 MG TABLET PO (15:09)
[2022-10-27] MEDS: FLUTICASONE PROPIONATE 0.05% NA SPR 16 GM BTL (*BKC) 2 SPRAY NASAL (15:09)
[2022-10-27 15:53] LABS: Glucose Point of Care 119 mg/dl (65-105)
[2022-10-27 20:48] LABS: Vancomycin Trough 5.8 ug/mL (10.0-20.0)
[2022-10-27 21:12] LABS: Glucose Point of Care 145 mg/dl (65-105)
[2022-10-28] VITALS (15 sets, daily range): BP systolic 104–172; BP diastolic 52–82; PULSE 67–93; RESP 18–20; TEMP 36.1–36.8; O2SAT 97–100
[2022-10-28] MEDS: LACTATED RINGERS 1,000 ML 100 ML IV CONT ×2 (02:00→13:29)
[2022-10-28 04:15] LABS: Glucose Point of Care 136 mg/dl (65-105)
[2022-10-28 05:16] LABS: Basophils Absolute Auto 0.1 K/mm3 (0.0-0.1); Basophils Percent Auto 1.3 % (0.2-1.2); Eosinophils Absolute Auto 0.3 K/mm3 (0-0.3); Eosinophils Percent Auto 3.4 % (0-4.4); Hematocrit 29.2 % (37.0-47.0); Hemoglobin 9.4 g/dL (12.0-15.0); Immature Granulocyte Absolute 0.06 K/mm3 (0.00-0.031); Immature Granulocyte Percent A 0.8 % (0-0.5); Immature Platelet Fraction Pct 13.3 % (0.9-11.2); Lymphocytes Absolute Auto 1.02 K/mm3 (0.9-3.2); Lymphocytes Percent Auto 13.5 % (18.3-44.2); Mean Corpuscular HGB Conc 32.2 g/dl (32-36); Mean Corpuscular Hemoglobin 31.4 pg (26-34); Mean Corpuscular Volume 97.7 fl (80-100); Mean Platelet Volume 12.8 fl (7.4-10.4); Monocytes Absolute Auto 0.9 K/mm3 (0.1-0.6); Monocytes Percent Auto 12.2 % (2.6-8.5); Neutrophils Absolute Auto 5.2 K/mm3 (1.3-6.7); Neutrophils Percent Auto 68.8 % (45.5-73.1); Platelet Count Result 223 k/mm3 (150-375); Red Blood Count 2.99 M/mm3 (4.2-5.4); Red Cell Distribution Width 20.3 % (11.5-14.5); White Blood Count 7.6 K/mm3 (4.5-10.0)
[2022-10-28 05:42] LABS: Alanine Aminotransferase 98 U/L (6-35); Albumin Level 2.9 g/dL (3.5-5.1); Alkaline Phosphatase 1104 U/L (38-126); Anion Gap 8 mmol/L (8-16); Aspartate Amino Transferase 194 U/L (14-36); Bilirubin,Total 20.1 mg/dL (0.2-1.3); Blood Urea Nitrogen 14 mg/dL (7-17); Calcium 8.9 mg/dL (8.4-10.2); Carbon Dioxide 25 mmol/L (22-30); Chloride 105 mmol/L (98-107); Estimated Glomerular Filt Rate > 60; Glucose 135 mg/dL (65-110); Magnesium 1.4 mg/dL (1.6-2.3); Potassium 3.5 mmol/L (3.4-5.0); Sodium 138 mmol/L (137-145)
[2022-10-28] MEDS: HYDROmorphone HCL INJ (*CRX) 1 MG/ML SYR 0.5 MG IV PUSH (08:19)
[2022-10-28] MEDS: FLUTICASONE PROPIONATE 0.05% NA SPR 16 GM BTL (*BKC) 2 SPRAY NASAL (08:23)
[2022-10-28] MEDS: LORATADINE 10 MG TABLET PO (08:23)
--- NOTE | 2022-10-28 09:27 | PM.IMPN ---
Progress Note: A&P Assessment and Plan (1) Pancreatitis: Code(s): K85.90 - Acute pancreatitis without necrosis or infection, unspecified Status: Acute Assessment and Plan: Patient presents to the ED for evaluation abdominal pain and rectal bleeding. Lipase was 16K. LFTs were all elevated with a bilirubin of 22. CT of the abdomen and pelvis shows interval progression of intra and extrahepatic biliary ductal dilatation with suggestion of possible small obstructing soft tissue density mass near the ampulla she also had peripancreatic inflammation with stranding consistent with secondary acute interstitial pancreatitis. Gallbladder remains dilated but without evidence of wall thickening or myriam cholecystic inflammatory stranding to suggest acute cholecystitis. No evident calcified gallstones. Lipase normal now. Abdominal pain better as pancreatitis improves. Cholestatic hepatitis with persistently elevated liver enzymes. GI was consulted with plan for ERCP with possible stent/biopsy. Appreciate GI input 10/26: ERCP attempted, unable to cannulate with concern for tumor, transfer pending to tertiary care center for further care 10/27: Transfer pending to [facility], accepting GI Dr Jennings, waiting list several days 10/28: no change (2) Cholestatic hepatitis: Code(s): K75.89 - Other specified inflammatory liver diseases Status: Acute Assessment and Plan: Patient with chronic hyperbilirubinemia with bili of 22 on admission. Alk-phos was 1041. AST and ALT were mildly elevated. Fractionation of the bilirubin is about 50% direct and 50% indirect. Liver biopsy on 10/18/2022 showed cholestatic hepatitis. 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 (3) Bloody stool: Code(s): K92.1 - Melena Status: Acute Assessment and Plan: Patient on the morning of admission was straining to have a bowel movement and passed light rios colored stool admixed with dark maroon blood. She does have hemorrhoids. Baseline hemoglobin is 10-12 range. On presentation, Hgb 9.8. Hgb has remained stable in the 8-9 range since admission. She had a colonoscopy in November 2020 which was normal and no mention of hemorrhoids. GI consulted. Continue monitor H&H. (4) Hypokalemia: Code(s): E87.6 - Hypokalemia Status: Acute Assessment and Plan: Resolved, monitor (5) Hypertension: Code(s): I10 - Essential (primary) hypertension Status: Acute Assessment and Plan: Patient's blood pressure was reviewed on 10/28 Blood pressure soft at times. Toprol-XL and lisinopril on hold. Will continue to monitor (6) Insulin dependent type 2 diabetes mellitus: Code(s): E11.9 - Type 2 diabetes mellitus without complications; Z79.4 - care home (current) use of insulin Status: Acute Assessment and Plan: A1c >14. The patient's blood glucose was reviewed on 10/28 Glucose well controlled. Continue AccuCheks covering with sliding scale. Hypoglycemia protocol available as needed. Home meds on hold while NPO. Plan DVT prophylaxis -SCDs Code status -full Subjective Date/time seen: 10/28/22 09:27 Interval history: 67yo female with cholestatic hepatitis, jaundice, DM, , severe LVH with LV outflow tract and DM here for weakness and abdominal pain. No overnight events noted. No chest pain or shortness of breath. No nausea, vomiting or diarrhea. No fevers or chills. She did have some abdominal pain and a little bit of nausea earlier today, relieved with dilaudid. Review of Systems Review of Systems: 12 point review of systems was assessed and was negative except as noted in the HPI Exam Narrative: General: No acute distress, alert and oriented per baseline HEENT: Atraumatic, normocephalic, mucous membranes moist, icteric sclera CV: Regular rate and rhythm, S1, S2 Lungs: Clear to auscultation bilaterally, no rales or crackles noted, no wheezes, good air entry
[2022-10-28 10:18] LABS: Glucose Point of Care 125 mg/dl (65-105)
[2022-10-28] MEDS: MAGNESIUM SULF 2 GM/WATER 50ML 2 GM/50 ML BAG IVPB (11:00)
[2022-10-28 12:54] LABS: Glucose Point of Care 123 mg/dl (65-105)
--- NOTE | 2022-10-28 13:42 | WPDGIPROGNO ---
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 This appears be causing obstructive jaundice. ERCP at our institution was unsuccessful with stent placement. Patient is awaiting transfer to [facility] for biliary decompression. If stenting not feasible external to stent such as PTC may be required. Hopefully eventually resection can be accomplished as this appears to be a small tumor. (2) Jaundice: Code(s): R17 - Unspecified jaundice Status: Acute Assessment and Plan: Obstructive jaundice evident. Patient remains with icterus. Awaiting transfer for decompression. (3) Morbid obesity with BMI of 50.0-59.9, adult: Code(s): E66.01 - Morbid (severe) obesity due to excess calories; Z68.43 - Body mass index [BMI] 50.0-59.9, adult Status: Acute (4) Insulin dependent type 2 diabetes mellitus: Code(s): E11.9 - Type 2 diabetes mellitus without complications; Z79.4 - intermediate accountant (current) use of insulin Status: Acute Subjective Date/time seen: 10/28/22 13:42 Interval history: Patient alert. Had some epigastric pain last night. Denies a fever. She remains jaundice. Otherwise comfortable at rest. Not much activity at present. No fever noted Review of Systems Review of Systems: review of systems noncontributory. Exam Narrative: Physical exam reveals patient to be alert. Vital signs stable. Comfortable at rest. HEENT exam reveals scleral icterus. Lungs are clear. Heart without murmur. Abdomen is obese. Bowel sounds are present soft nontender with no obvious masses. Objective Data Vital Signs Vital Signs: Vital Signs - 24 hr 10/27/22 16:00 10/27/22 18:00 10/27/22 19:58 Temperature 97.3 F L 97.2 F L Pulse Rate 66 79 70 Respiratory Rate 16 16 Blood Pressure 130/55 L 132/58 L Pulse Oximetry 99 100 Oxygen Delivery 10/27/22 20:00 10/27/22 20:00 10/27/22 23:00 Temperature 98.2 F Pulse Rate 70 70 93 Respiratory Rate 16 20 Blood Pressure 123/48 L Pulse Oximetry 100 99 Oxygen Delivery Room Air 10/27/22 22:00 10/28/22 00:00 10/28/22 00:00 Temperature Pulse Rate 70 67 93 Respiratory Rate 20 Blood Pressure Pulse Oximetry 99 Oxygen Delivery Room Air 10/28/22 02:00 10/28/22 04:00 10/28/22 04:00 Temperature Pulse Rate 68 70 68 Respiratory Rate 20 Blood Pressure Pulse Oximetry 99 Oxygen Delivery Room Air 10/28/22 04:19 10/28/22 06:00 10/28/22 08:00 Temperature 97.7 F 97 F L Pulse Rate 69 69 71 Respiratory Rate 20 20 Blood Pressure 104/58 L 144/69 H Pulse Oximetry 97 98 Oxygen Delivery 10/28/22 12:00 Temperature 97.6 F Pulse Rate 71 Respiratory Rate 18 Blood Pressure 129/82 Pulse Oximetry 100 Oxygen Delivery Intake/Output Intake/Output: Intake & Output 10/25/22 10/26/22 10/27/22 10/28/22 23:59 23:59 23:59 23:59 Intake Total 2600 2720 3820 2990 Output Total 1200 227 943 4611 Balance 1400 2170 2995 390 Meds/Results Medications: Active Medications Generic Name Dose Route Start Last Admin Trade Name Freq PRN Reason Stop Dose Admin Dextrose 12.5 gm 10/23/22 23:46 Dextrose 50% 25 Gm/50 Ml Syringe IV PUSH PRN PRN Hypoglycemia Protocol Fluticasone Propionate 2 spray 10/27/22 13:30 10/28/22 08:23 Fluticasone Propionate 0.05% Na Spr 16 Gm Btl (*Bkc) NASAL 2 spray QAM LUCINA Administration Glucagon 1 mg 10/23/22 23:46 Glucagon For Inj 1 Mg Vial IM PRN PRN Hypoglycemia Protocol Glucose 15 gm 10/23/22 23:46 Glucose Oral Gel 15 Gm Of Glucse In 37.5 Gm Tube PO PRN PRN Hypoglycemia Protocol Hydromorphone HCl 0.5 mg 10/23/22 23:27 10/28/22 08:19 Hydromorphone Hcl Inj (*Crx) 1 Mg/Ml Syr IV PUSH 0.5 mg
[2022-10-28 16:41] LABS: Glucose Point of Care 148 mg/dl (65-105)
[2022-10-28 20:35] LABS: Glucose Point of Care 151 mg/dl (65-105)
[2022-10-29] VITALS: PULSE 72; PULSE 74; RESP 18; O2SAT 99
[2022-10-30 07:56] LABS: CA 19-9 112 U/mL (<34)
--- NOTE | 2022-11-07 10:45 | PM.TDS ---
Transfer Discharge Sum: Prov Provider Date of admission: 10/24/22 07:17 Primary care physician: Giovanny Santos MD Admitting clinician: Nga Troncoso MD Consults: 10/23/22 17:59 Consult to Physician Routine Comment: spoke with Patricia in [id number]([place] ,[place]) Consulting Provider: Dov Candelaria call center trainer/MD group to consult: Arjun Reason for consultation: pancreatitis, pancreatic mass, needs ERCP Has provider been notified: Yes DS: Admitting Diagnosis Discharge Date 10/29/22 Admitting Diagnosis Abdominal pain DS: Discharge Diagnosis Discharge Diagnosis (1) Pancreatitis: Code(s): K85.90 - Acute pancreatitis without necrosis or infection, unspecified Status: Acute Assessment and Plan: Patient presents to the ED for evaluation abdominal pain and rectal bleeding. Lipase was 16K. LFTs were all elevated with a bilirubin of 22. CT of the abdomen and pelvis shows interval progression of intra and extrahepatic biliary ductal dilatation with suggestion of possible small obstructing soft tissue density mass near the ampulla she also had peripancreatic inflammation with stranding consistent with secondary acute interstitial pancreatitis. Gallbladder remains dilated but without evidence of wall thickening or myriam cholecystic inflammatory stranding to suggest acute cholecystitis. No evident calcified gallstones. Lipase normal now. Abdominal pain better as pancreatitis improves. Cholestatic hepatitis with persistently elevated liver enzymes. GI was consulted with plan for ERCP with possible stent/biopsy. Appreciate GI input 10/26: ERCP attempted, unable to cannulate with concern for tumor, transfer pending to tertiary care center for further care 10/27: Transfer pending to [facility], accepting GI Dr Jennings, waiting list several days 10/28: no change (2) Cholestatic hepatitis: Code(s): K75.89 - Other specified inflammatory liver diseases Status: Acute Assessment and Plan: Patient with chronic hyperbilirubinemia with bili of 22 on admission. Alk-phos was 1041. AST and ALT were mildly elevated. Fractionation of the bilirubin is about 50% direct and 50% indirect. Liver biopsy on 10/18/2022 showed cholestatic hepatitis. 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 (3) Bloody stool: Code(s): K92.1 - Melena Status: Acute Assessment and Plan: Patient on the morning of admission was straining to have a bowel movement and passed light rios colored stool admixed with dark maroon blood. She does have hemorrhoids. Baseline hemoglobin is 10-12 range. On presentation, Hgb 9.8. Hgb has remained stable in the 8-9 range since admission. She had a colonoscopy in November 2020 which was normal and no mention of hemorrhoids. GI consulted. Continue monitor H&H. (4) Hypokalemia: Code(s): E87.6 - Hypokalemia Status: Acute Assessment and Plan: Resolved, monitor (5) Hypertension: Code(s): I10 - Essential (primary) hypertension Status: Acute Assessment and Plan: Patient's blood pressure was reviewed on 10/28 Blood pressure soft at times. Toprol-XL and lisinopril on hold. Will continue to monitor (6) Insulin dependent type 2 diabetes mellitus: Code(s): E11.9 - Type 2 diabetes mellitus without complications; Z79.4 - long term acute care registered nurse (current) use of insulin Status: Acute Assessment and Plan: A1c >14. The patient's blood glucose was reviewed on 10/28 Glucose well controlled. Continue AccuCheks covering with sliding scale. Hypoglycemia protocol available as needed. Home meds on hold while NPO. Plan DVT prophylaxis -SCDs Code status -full Transfer Discharge Sum: Med Medications Active and Home Medications: Home Medications lisinopril 40 mg tablet 40 mg PO QAM 11/11/20 [History Confirmed 10/23/22] metformin 500 mg tablet 1,000 mg PO QAM 11/11/20 [History Confirmed 10/23/22] cholecalciferol (vitamin D3)
== END 2022-10-29 00:40 | disposition short-term general hospital (02) | DRG 444 ==
LOC: ANHED 13:38 → ANHIMU 18:46
PROVIDERS: Emergency Medicine; Internal Medicine; Internal Medicine Gastroenterology; Physician Assistant; Admitting Provider Family Medicine; Emergency Provider Emergency Medicine; PCP Family Medicine; Visit Provider Student in an Organized Health Care Education/Training Program
PROC: 0F7D8ZZ Dilation of Pancreatic Duct, Via Natural or Artificial Opening Endoscopic (ICD-10-PCS; CPT 43260; principal; 2022-10-25 13:45)
DX: K83.8 Other specified diseases of biliary tract (principal); K85.80 Other acute pancreatitis without necrosis or infection; Z68.41 Body mass index [BMI] 40.0-44.9, adult; K83.1 Obstruction of bile duct; K75.89 Other specified inflammatory liver diseases; E11.9 Type 2 diabetes mellitus without complications; I10 Essential (primary) hypertension; E66.01 Morbid (severe) obesity due to excess calories; M17.12 Unilateral primary osteoarthritis, left knee; I35.0 Nonrheumatic aortic (valve) stenosis; Z53.09 Procedure and treatment not carried out because of other contraindication; E78.5 Hyperlipidemia, unspecified; E87.6 Hypokalemia; K64.9 Unspecified hemorrhoids; M19.90 Unspecified osteoarthritis, unspecified site; Z79.4 Long term (current) use of insulin; Z85.42 Personal history of malignant neoplasm of other parts of uterus; Z90.710 Acquired absence of both cervix and uterus; I25.2 Old myocardial infarction
CPT/HCPCS: 36415; 74177; 74329; 80048; 80053; 80202; 81001; 82140; 82248; 82948; 83605; 83690; 83735; 84100; 85014; 85018; 85025; 85055; 85610; 85730; 86301; 86850; 86900; 86901; 87040; 87077; 87086; 87088; 93005; 94640; 96361; 96365; 96366; 96368; 96375; 96376; 99285; A9270; G0378; J0330; J1100; J1170; J1956; J2060; J2371; J2405; J2704; J3370; J3475; J3480; J7030; J7120; Q9966; Q9967

== ENCOUNTER 2024-01-01 14:57 | Emergency (ER) | payer MEDICARE, SELFPAY ==
--- NOTE | ~2024-01-01 | XR_ITS ---
EXAM: XR shoulder LT min 2V DATE: 01/01/2024 16:05 HISTORY: pain, bruise . COMPARISON: None available. FINDINGS: Decreased mineralization. Cardiac valve replacement. No fracture or dislocation. No lytic or blastic lesion. Superior humeral head migration as can be seen with rotator cuff pathology. Modera te degenerative change at the AC joint and glenohumeral joint. No erosion or periosteal change. Soft tissue swelling over the shoulder. IMPRESSION: No acute osseous finding in the left shoulder. Reviewed, dictated and finalized at location K. ENGINE MECHANIC
[2024-01-01 15:13] VITALS: BP 113/53; PULSE 87; RESP 28; TEMP 36.4; O2SAT 99
--- NOTE | 2024-01-01 15:16 | ED_ITS ---
HPI - Extremity Problem General Chief complaint: Extremity Problem,Nontraumatic Stated complaint: Left Shoulder Pain Time Seen by Provider: 01/01/24 16:33 Source: patient and RN notes reviewed Mode of arrival: ambulatory Limitations: no limitations History of Present Illness HPI Narrative: 68 year female presents with concern for left shoulder pain. Reports she was recently hospitalized for fluid retention and was being turned frequently to prevent bedsores. Reports she started having left shoulder pain in the hospital, they treated her for arthritis for the pain the hospital. She reports she was given Tylenol to take. She reports when she got home she noticed a large bruise on the left shoulder and swelling. She denies any direct injury or trauma to the shoulder. MD Complaint: extremity pain Related Data Home Medications Medication Instructions Recorded Confirmed cholecalciferol (vitamin D3) 1,250 1,250 mcg PO WEEKLY 01/05/22 01/01/24 mcg (50,000 unit) tablet sertraline 25 mg tablet 25 mg PO QAM 01/05/22 01/01/24 apixaban 5 mg tablet (Eliquis) 5 mg PO BID 01/01/24 01/01/24 atorvastatin 20 mg tablet 20 mg PO DAILY 01/01/24 01/01/24 folic acid 1 mg tablet 1 mg PO DAILY 01/01/24 01/01/24 furosemide 40 mg tablet 40 mg PO DAILY 01/01/24 01/01/24 lraxya-stquetjv-vrvmwja 1 cap PO TID 01/01/24 01/01/24 36,000-114,000-180,000 unit capsule,delay rel (Creon) midodrine 10 mg tablet 20 mg PO TID 01/01/24 01/01/24 pantoprazole 40 mg tablet,delayed 40 mg PO DAILY 01/01/24 01/01/24 release Allergies Allergy/AdvReac Type Severity Reaction Status Date / Time empagliflozin Allergy Severe Rash Verified 01/01/24 15:41 [From Jardiance] Penicillins Allergy Severe Rash Verified 01/01/24 15:41 Review of Systems Review of Systems: CONSTITUTIONAL: Denies malaise, chills, sweats, or fever. CARDIOVASCULAR: Denies chest pain, palpitations, or edema. SKIN: Reports bruising to the left shoulder MUSCULOSKELETAL: Reports left shoulder pain NEUROLOGIC: Denies numbness, weakness. 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 Non-ST elevated myocardial infarction Supraventricular tachycardia Surgical History Surgical History History of benign breast biopsy (08/24/00) Right. History of hysterectomy for cancer (02/2022) History of tubal ligation Family History Family History Mother Ovarian cancer Father Esophageal cancer Sibling Diabetes mellitus Grandparent Diabetes mellitus Social History Social History Social History: Surrogate medical decision maker: Morteza Madera, spouse. Code status: Full code. Smoking status: Never smoker Alcohol intake: never Substance use: current Substance use type: does not use Lack of Transportation: No Lack of Food: Never True Current Housing: I Have Housing Concerned About Future Housing: No Difficulty Paying Gas/Electric Bills: No Difficulty Paying for Meds: No Currently Unemployed: No Education: High School Diploma/GED Difficulty w/ Childcare or Family Care: No Living arrangements: with family Additional living arrangements comments: Lives with spouse in [place]. Spiritual care concerns: No Comments At time of signature, agree with nursing past medical, surgical, social and family history. There is no relevant family history pertinent to the presenting complaint Exam Narrative: GENERAL: Well-appearing, well-nourished, and in no acute distress. HEAD: Normocephalic, atraumatic. EYES: PERRLA, conjunctivae clear NECK: Supple. CHEST: Speaks in full sentences. No respiratory distress. HEART: Regular rate and rhythm. Normal and equal peripheral pulses. EXTREMITIES: Left upper extremity has normal strength and sensation, range of motion limited. Mild edema with extensive ecchymosis in latter stages healing. Normal sensation with sensitivity to light touch and pain. General shoulder tenderness. No open wounds, no skin tenting, no devitalized tissue or atrophy, no trophic changes, no obvious deformity, alignment normal, nearby joints and structures intact. Distal pulses palpable and equal bilaterally, skin warm, dry, pink. Capillary refill less than 3 seconds. SKIN: Warm, dry, no rash. NEURO: Alert and oriented x3. PSYCH: Normal mood and affect Course Course Emergency Course: Patient is aware of diagnosis, understands and agrees to treatment plan. Anticipatory guidance given. Patient agrees to follow-up as directed and is aware of reasons to seek care at the emergency department. Portions of this record may have been created with voice recognition software Level of Care: Express Care Visit Vital Signs Vital signs: Vital Signs Temperature 97.6 F 01/01/24 15:13 Pulse Rate 87 01/01/24 15:13 Respiratory Rate 28 H 01/01/24 15:13 Blood Pressure 113/53 L 01/01/24 15:13 Pulse Oximetry 99 01/01/24 15:13 Oxygen Delivery Room Air 01/01/24 15:13 Temperature 97.6 F 01/01/24 15:13 Pulse Rate 87 01/01/24 15:13 Respiratory Rate 28 H 01/01/24 15:13 Blood Pressure 113/53 L 01/01/24 15:13 Pulse Oximetry 99 01/01/24 15:13 Oxygen Delivery Room Air 01/01/24 15:13 Reviewed. MDM - Extremity (Nontraumatic) Lab Data Attestation: I reviewed the patient's lab results. Imaging Data My impression: Images reviewed, interpreted by radiologist, agree, see report. Radiologist's impression: EXAM: XR shoulder LT min 2V DATE: 01/01/2024 16:05 HISTORY: pain, bruise . COMPARISON: None available. FINDINGS: Decreased mineralization. Cardiac valve replacement. No fracture or dislocation. No lytic or blastic lesion. Superior humeral head migration as can be seen with rotator cuff pathology. Moderate degenerative change at the AC jamaal nt and glenohumeral joint. No erosion or periosteal change. Soft tissue swelling over the shoulder. IMPRESSION: No acute osseous finding in the left shoulder. Critical Care Time Critical Care Time Critical Care Time: No Discharge Plan Discharge Clinical Impression: Acute shoulder pain Patient Disposition: Home, Self-Care Condition: Stable Instructions: Shoulder Pain (ED) Additional Instructions: Avoid activities that cause pain until the pain subsides. Ice to the area 20-30 minutes 4-6 times a day Wear sling as directed for comfort Tylenol for pain Follow up with Orthopedics for further evaluation If the condition worsens with numbness, tingling, decrease sensation with weakness seek treatment in the emergency room immediately. Prescriptions: No Action pantoprazole 40 mg tablet,delayed release (DR/EC) 40 mg PO DAILY Eliquis 5 mg tablet 5 mg PO BID Creon 36,000-114,000- 180,000 unit capsule,delayed release(DR/EC) 1 cap PO TID atorvastatin 20 mg tablet 20 mg PO DAILY midodrine 10 mg tablet 20 mg PO TID furosemide 40 mg tablet 40 mg PO DAILY folic acid 1 mg tablet 1 mg PO DAILY Gvoke HypoPen 2-Pack 1 mg/0.2 mL auto-injector 1 mg subcut ONCE Qty: 1 2RF Rx Instructions: as a single dose; may repeat once after 15 minutes if no response glucose 4 gram tablet,chewable 16 g PO Q15M PRN (Reason: hypoglycemia) Qty: 180 0RF Rx Instructions: until symptoms of low blood sugar are controlled (DME) Dexcom G7 Sensor Device See Rx Instructions .Route Qty: 9 0RF Rx Instructions: every 10 days sertraline 25 mg tablet 25 mg PO QAM cholecalciferol (vitamin D3) 1,250 mcg (50,000 unit) Tablet 1,250 mcg PO WEEKLY Patient Comments: TAKES ON THURSDAYS Rx Instructions: pt. takes on Follow-up/Referrals: PHYSICIAN NOT ON STAFF,NONSTAFF [Primary Care Provider] - Keshav Wood MD [Physician] - Time of Disposition: 16:32
== END 2024-01-01 16:35 | disposition home or self-care (01) ==
PROVIDERS: Emergency Provider Nurse Practitioner
DX: M25.512 Pain in left shoulder (principal); I35.0 Nonrheumatic aortic (valve) stenosis; E78.5 Hyperlipidemia, unspecified; I10 Essential (primary) hypertension; E11.9 Type 2 diabetes mellitus without complications; Z79.4 Long term (current) use of insulin; F41.9 Anxiety disorder, unspecified; F32.A Depression, unspecified; M10.9 Gout, unspecified; M17.12 Unilateral primary osteoarthritis, left knee; I25.2 Old myocardial infarction; Z79.01 Long term (current) use of anticoagulants
CPT/HCPCS: 73030; 99213; A4565; G0463

== ENCOUNTER 2024-10-03 08:26 | Outpatient (CLI) | payer MEDICARE, SELFPAY ==
--- NOTE | ~2024-10-03 | MM_ITS ---
EXAMINATION: MM screening livan BI w danelle HISTORY: Screening TECHNIQUE: Craniocaudal and mediolateral oblique 3-D tomosynthesis images were obtained and synthetic 2-D images were generated. CAD analysis was submitted and interpreted. COMPARISON: Comparison to multiple prior studies sequentially, with oldest reviewed study dated 07/24/2014. BREAST PARENCHYMAL COMPOSITION: There are scattered areas of fibroglandular density. FINDINGS: There is interval increased breast parenchymal density and decrease in breast size bilaterally. This findings may be related to significant weight loss. Consequently the sensitivity and specificity of mammography is diminished. There is no evidence of suspicious mass, calcification, or architectural distortion to suggest malignancy in either breast. Scattered benign-appearing calcifications are present. IMPRESSION: 1. No mammographic evidence of malignancy. However, there is interval reduction in breast size with increased breast density which reduces the sensitivity and specificity of mammography. Supplemental imaging with breast MRI is advised. 2. Recommend routine screening mammography in one year. BI-RADS Category 2: Benign finding(s). Reviewed, dictated and finalized at location B.
== END 2024-10-03 08:27 | disposition home or self-care (01) ==
LOC: MICIMG 08:27
PROVIDERS: PCP Obstetrics & Gynecology Gynecology; Visit Provider Obstetrics & Gynecology Gynecology
DX: Z12.31 Encounter for screening mammogram for malignant neoplasm of breast (principal)
CPT/HCPCS: 77063; 77067